=== PATIENT | female | born 1945 | race Caucasian/White ===

== ENCOUNTER 2019-03-16 12:32 | Emergency (ER) | payer OTHER ==
--- NOTE | 2019-03-16 13:08 | RAD REPORT ---
EXAM DESCRIPTION: CT - Head Brain Wo Cont - 03/16/2019 12:59 pm CLINICAL HISTORY: found on ground, confused Headache, altered consciousness COMPARISON: CT HEAD SPINE CAP W CONTRAST dated 10/05/2015 TECHNIQUE: All CT scans are performed using dose optimization technique as appropriate and may inclu de automated exposure control or mA/KV adjustment according to patient size. FINDINGS: Vague areas of diminished density are seen in the right posterior parietal lobe. These may represent areas of subacute ischemia.No intracranial hemorrhage appreciated.No midline shift evident . The paranasal sinuses and mastoids are clear. The calvarium is intact. Vertebral arteries are calcifi ed. IMPRESSION: Diminished density in the right posterior parietal lobe may represent subacute CVA. Con automatic fabric cutter followup MR brain assessment for further workup.
[2019-03-16] MEDS ORDERED: LORazepam 2 MG/ML VIAL ONE (13:46)
[2019-03-16 13:50] LABS: Absolute Lymphocytes (CBC) 0.8 K/uL (0.7-4.9); Basophils % 0.3 % (0-1.3); Eosinophils % 0.2 % (0-4.4); Hematocrit 43.2 % (36.0-45.0); Lymphocytes % 9.6 % (15.3-44.8); MPV 8.5 fL (7.6-11.3); Monocytes % 9.5 % (3.3-12.3); RBC Red Blood Cell Count 5.35 M/uL (3.86-4.86)
[2019-03-16 14:02] LABS: Potassium 4.7 mmol/L (3.5-5.1)
--- NOTE | 2019-03-16 17:12 | RAD REPORT ---
EXAM DESCRIPTION: MRI - MRA Head Wo Cont - 03/16/2019 4:30 pm CLINICAL HISTORY: Stroke-like symptoms, loss of consciousness COMPARISON: None. TECHNIQUE: Axial and coronal 3D [id number] image acquisition was performed. 3D rotational images were generated with source and reconstruction images reviewed. Horizontal and vertical axis rotation al views generated using MIP protocol. FINDINGS: No aneurysm or vascular malformation. No significant atherosclerotic changes are seen in t he central vasculature. Basilar artery is tortuous but without stenosis. The distal M1 and proximal M 2 branches of each middle cerebral artery show evidence for atherosclerotic change. However, the exam has motion degradation which would accentuate these findings. IMPRESSION: Bilateral middle cerebral artery atherosclerotic changes are present accentuated in [place] due to motion degradation. No significant disease in the distal internal carotid arteries, basilar artery or proximal portions o f the anterior, middle and posterior cerebral arteries.
--- NOTE | 2019-03-16 17:18 | RAD REPORT ---
EXAM DESCRIPTION: MRI - Brain W/Wo Cont - 03/16/2019 4:31 pm CLINICAL HISTORY: Loss of consciousness, stroke-like symptoms COMPARISON: CT March 16 TECHNIQUE: Sagittal and axial T1-weighted images were obtained. Axial PD/heavily T2-weighted and T2- FLAIR images were obtained along with axial DWI/ADC mapping sequences. Coronal heavily T2 weighted s equence obtained. Axial and coronal post-contrast T1-weighted images were also obtained. A 15 ml Mul tihance contrast following utilized. FINDINGS: No intracranial hemorrhage, mass or acute infarction. There is no edema or shift of midli ne structures. No extra-axial fluid collections. Estrada-matter/white matter junction is preserved. Sig nal voids are seen as a normal finding in the major intracranial vessels. No significant atrophy gale ges seen. Chronic ischemic changes are minimal. No sella or supra sella abnormality. Post-contrast images show normal enhancement. No dural thickening. Mastoid air cells and paranasal sinuses are clear. IMPRESSION: No infarction or other acute intracranial finding. Minimal chronic ischemic change.
--- NOTE | 2019-03-16 17:21 | RAD REPORT ---
EXAM DESCRIPTION: MRI - MRA Neck W/Wo Cont - 03/16/2019 4:31 pm CLINICAL HISTORY: Loss of consciousness, stroke-like symptoms COMPARISON: None. TECHNIQUE: Axial and coronal 3D [id number] image acquisition was performed. 3D rotational images were generated with source and reconstruction images reviewed. Horizontal and vertical axis rotation al views generated using MIP protocol. FINDINGS: Aortic arch is bovine configuration. No great vessel origins stenosis. Bilateral common ca rotid artery origin show no suspicious findings. No common carotid stenosis. Left vertebral artery is dominant. There is pronounced tortuosity at the proximal portion of each vertebral artery. Internal carotid artery's are also tortuous but without dissection or stenosis. No basilar stenosis. IMPRESSION: No dissection, stenosis or significant finding of the cervical carotid and vertebral vas culature.
--- NOTE | 2019-03-16 17:41 | ER ---
Nurse's Notes [facility] Name: Nola Quijano Age: 73 yrs Sex: Female : 1945 Arrival Date: 03/16/2019 Time: 12:43 Bed 23 Private MD: Diagnosis: Hypoglycemia, unspecified Presentation: 03/16 12:45 Presenting complaint: EMS states: EMS was called when the patient's family called to [facility] check on her this morning and no one answered. When they got into the house they found the patient laying on the floor, disoriented. FSBS 51 on scene. Patient received 1 amp of D50, and became alert and oriented. Patient reports that she remembers taking her insulin last night before bed, but doesn't remember anything from this morning. 12:45 Transition of care: patient was not received from another setting of care. Onset of [facility] symptoms was March 16, 2019. Risk Assessment: Do you want to hurt yourself or someone else? Patient reports no desire to harm self or others. Initial Sepsis Screen: Does the patient meet any 2 criteria? No. Patient's initial sepsis screen is negative. Does the patient have a suspected source of infection? No. Patient's initial sepsis screen is negative. Care prior to arrival: None. 12:45 Method Of Arrival: [facility] aj 12:45 Acuity: HECTOR 3 aj1 Triage Assessment: 12:45 General: Appears in no apparent distress. comfortable, Behavior is calm, cooperative, aj1 appropriate for age. Pain: Denies pain. Historical: - Allergies: 13:08 PENICILLINS; aj1 - Home Meds: 13:08 Lasix 40 mg Oral tab 1 tab once daily [Active]; spironolactone 50 mg Oral tab 1 tab 2 aj1 times per day [Active]; propranolol 20 mg Oral tab 1 tab daily [Active]; Levemir FlexTouch 100 unit/mL (3 mL) subcutaneous inpn 30 units nightly [Active]; - PMHx: 13:08 Diabetes - NIDDM; Hypertension; "liver problem"; aj1 - Immunization history:: Flu vaccine is up to date. - Social history:: Smoking status: Patient/guardian denies using tobacco. - Ebola Screening: : Patient denies travel to an Ebola-affected area in the 21 days before illness onset. - Family history:: not pertinent. - Hospitalizations: : No recent hospitalization is reported. Screenin:45 Abuse screen: Denies threats or abuse. Denies injuries from another. Nutritional aj1 screening: No deficits noted. Tuberculosis screening: No symptoms or risk factors identified. 19:27 Fall Risk Fall in past 12 months (25 points). No secondary diagnosis (0 pts). No IV (0 aj1 pts). Ambulatory Aid- None/Bed Rest/Nurse Assist (0 pts). Gait- Normal/Bed Rest/Wheelchair (0 pts) Mental Status- Oriented to own ability (0 pts). Total Carbone Fall Scale indicates Low Risk Score (25-44 pts). As available Patient and Family Educated on Fall Prevention Program and strategies. Assessment: 12:45 General: Appears in no apparent distress. comfortable, Behavior is calm, cooperative, aj1 appropriate for age. Pain: Denies pain. Neuro: Level of Consciousness is awake, alert, obeys commands, Oriented to person, place, time, situation, Plate Developer are equal bilaterally Moves all extremities. Full function Speech is normal, Facial symmetry appears normal. Cardiovascular: Patient's skin is warm and dry. Respiratory: Airway is patent Respiratory effort is even, unlabored, Respiratory pattern is regular, symmetrical. GI: No signs and/or symptoms were reported involving the gastrointestinal system. : EENT: No signs and/or symptoms were reported regarding the EENT system. Derm: No signs and/or symptoms reported regarding the dermatologic system. Musculoskeletal: No signs and/or symptoms reported regarding the musculoskeletal system. Circulation, motion, and sensation intact. 13:34 Reassessment: Patient appears in no apparent distress at this time. No changes from aj1 previously documented assessment. Patient and/or family updated on plan of care and expected duration. Pain level reassessed. Patient is alert, oriented x 3, equal unlabored respirations, skin warm/dry/pink. 14:30 Reassessment: Patient and/or family updated on plan of care and expected duration. Pain aj1 level reassessed. General: Appears in no apparent distress. comfortable, Behavior is calm, cooperative, appropriate for age. Neuro: Level of Consciousness is awake, alert, obeys commands, Oriented to person, place, time, situation, Speech is normal, Facial symmetry appears normal. Cardiovascular: Patient's skin is warm and dry. Respiratory: Airway is patent Respiratory effort is even, unlabored, Respiratory pattern is regular, symmetrical. Respiratory: Airway is patent Respiratory effort is even, unlabored, Respiratory pattern is regular, symmetrical. Derm: No signs and/or symptoms reported regarding the dermatologic system. Skin is pink, warm \\T\\ dry. normal. Musculoskeletal: No signs and/or symptoms reported regarding the musculoskeletal system. Circulation, motion, and sensation intact. 15:04 Reassessment: patient sent to MRI via stretcher. mg2 15:50 Reassessment: Patient returned to room from MRI. aj1 16:15 Reassessment: Patient appears in no apparent distress at this time. No changes from aj1 previously documented assessment. Patient and/or family updated on plan of care and expected duration. Pain level reassessed. Patient is alert, oriented x 3, equal unlabored respirations, skin warm/dry/pink. 17:15 Reassessment: Patient appears in no apparent distress at this time. No changes from aj1 previously documented assessment. Patient and/or family updated on plan of care and expected duration. Pain level reassessed. Patient is alert, oriented x 3, equal unlabored respirations, skin warm/dry/pink. 17:59 Reassessment: PO challenge initiated. aj1 18:03 Reassessment: Patient appears in no apparent distress at this time. No changes from aj1 previously documented assessment. Patient and/or family updated on plan of care and expected duration. Pain level reassessed. Patient is alert, oriented x 3, equal unlabored respirations, skin warm/dry/pink. 19:05 Reassessment: Patient appears in no apparent distress at this time. No changes from aj1 previously documented assessment. Patient and/or family updated on plan of care and expected duration. Pain level reassessed. Patient is alert, oriented x 3, equal unlabored respirations, skin warm/dry/pink. Vital Signs: 12:45 BP 148 / 87; Pulse 62; Resp 18; Temp 96.2(TE); Pulse Ox 100% on R/A; Weight 65.32 kg aj1 (R); Height 5 ft. 6 in. (167.64 cm) (R); Pain 0/10; 13:34 BP 144 / 88; Pulse 67; Resp 18; Pulse Ox 97% on R/A; aj1 15:03 BP 132 / 84; Pulse 74; Resp 18; Pulse Ox 98% on R/A; mg2 16:15 BP 129 / 89; Pulse 69; Resp 18; Pulse Ox 99% on R/A; aj1 17:15 BP 114 / 80; Pulse 91; Resp 18; Pulse Ox 97% on R/A; aj1 18:01 BP 123 / 90; Pulse 95; Resp 18; Temp 96.8(TE); Pulse Ox 97% on R/A; aj1 19:08 BP 108 / 79; Pulse 97; Resp 18; Pulse Ox 99% on R/A; aj1 12:45 Body Mass Index 23.24 (65.32 kg, 167.64 cm) aj1 ED Course: 12:43 Patient arrived in ED. rn 12:43 Kvng Angelo MD is Attending Physician. rn 12:45 Arm band placed on. aj1 12:45 Patient has correct armband on for positive identification. Bed in low position. Call aj1 light in reach. Side rails up X 1. blueprint processor on. Pulse ox on. NIBP on. 12:45 No provider procedures requiring assistance completed. Maintain EMS IV. Dressing aj1 intact. Good blood return noted. Site clean \\T\\ dry. Gauge \\T\\ site: 20g right hand. 12:59 CT Head Brain wo Cont In Process Unspecified. EDMS 13:04 Marilin Kaufman, RN is Primary Nurse. aj1 13:06 Triage completed. aj1 13:24 Radiology exam delayed due to lab results not completed at this time. ka 16:31 MRA Head Wo Cont In Process Unspecified. EDMS 16:31 Brain W/Wo Cont In Process Unspecified. EDMS 16:32 MRA Neck W/Wo Cont In Process Unspecified. EDMS 19:26 IV discontinued, intact, bleeding controlled, No redness/swelling at site. Pressure aj1 dressing applied. Administered Medications: 13:51 Drug: Ativan 0.5 mg Route: IVP; Site: right wrist; aj1 14:30 Follow up: Response: No adverse reaction aj1 Point of Care Testing: Blood Glucose: 12:45 Blood Glucose: 139 mg/dL; aj1 13:33 Blood Glucose: 110 mg/dL; aj1 18:35 Blood Glucose: 131 mg/dL; aj1 Ranges: Outcome: 17:40 Discharge ordered by . rn 19:26 Discharged to home via wheelchair. aj1 19:26 Condition: good 19:26 Discharge instructions given to patient, Instructed on discharge instructions, follow up and referral plans. Patient was instructed to not administer her insulin tonight follow up with Dr. Jc tomorrow to adjust insulin dosage Demonstrated understanding of instructions, follow-up care. 19:28 Patient left the ED. aj1 Signatures: Dispatcher [employer] EDMarilin Isaac RN RN aj1 Kvng Angelo MD MD rn Aguilera, Katelyn ka Gardose, Michele, RN RN mg2
--- NOTE | 2019-03-16 17:41 | EDPHYS ---
Physician Documentation [facility] Name: Nola Quijano Age: 73 yrs Sex: Female : 1945 Arrival Date: 03/16/2019 Time: 12:43 Bed 23 Private MD: ED Physician Kvng Angelo HPI: 03/16 13:08 This 73 yrs old Female presents to ER via EMS with complaints of low blood rn sugar. 13:08 The patient or guardian reports hypoglycemia. Onset: The symptoms/episode rn began/occurred at an unknown time. Current symptoms: In the emergency department the patient's symptoms have resolved. The patient has experienced similar episodes in the past. Per EMS report, family unable to get a hold of patient, so called police and EMS for welfare check, found on ground mumbling, glucose low and given some glucose in IV with mild change, given other half of amp of D50, and returned to baseline. Patient reports last thing she remembers is giving herself insulin at night. Does not recall fall or trauma or how she ended up on ground. States that has been having low blood glucose overnight almost nightly, wakes up sweating and takes oral glucose, no recent change in dosing, doesn't know why didn't wake up last night or early this morning. Has appt with her pcp tomorrow regarding this insulin and glucose issues.. Historical: - Allergies: 13:08 PENICILLINS; aj1 - Home Meds: 13:08 Lasix 40 mg Oral tab 1 tab once daily [Active]; spironolactone 50 mg Oral tab 1 tab 2 aj1 times per day [Active]; propranolol 20 mg Oral tab 1 tab daily [Active]; Levemir FlexTouch 100 unit/mL (3 mL) subcutaneous inpn 30 units nightly [Active]; - PMHx: 13:08 Diabetes - NIDDM; Hypertension; "liver problem"; aj1 - Immunization history:: Flu vaccine is up to date. - Social history:: Smoking status: Patient/guardian denies using tobacco. - Ebola Screening: : Patient denies travel to an Ebola-affected area in the 21 days before illness onset. - Family history:: not pertinent. - Hospitalizations: : No recent hospitalization is reported. ROS: 13:08 Constitutional: Negative for fever, chills, and weight loss, Eyes: Negative for injury, rn pain, redness, and discharge, Neck: Negative for injury, pain, and swelling, Cardiovascular: Negative for chest pain, palpitations, and edema, Respiratory: Negative for shortness of breath, cough, wheezing, and pleuritic chest pain, Abdomen/GI: Negative for abdominal pain, nausea, vomiting, diarrhea, and constipation, MS/Extremity: Negative for injury and deformity, Skin: Negative for injury, rash, and discoloration, Neuro: Negative for headache, weakness, numbness, tingling, and seizure, Endocrine: + low blood glucose episodes Exam: 13:08 Constitutional: This is a well developed, well nourished patient who is awake, alert, rn and in no acute distress. Head/Face: Normocephalic, atraumatic. ENT: MMM Neck: No midline spinal tenderness Cardiovascular: Regular rate and rhythm. No pulse deficits. Respiratory: Lungs have equal breath sounds bilaterally, clear to auscultation. No increased work of breathing, no retractions or nasal flaring. Abdomen/GI: soft, non-tender Back: No spinal tenderness. No costovertebral tenderness. Full range of motion. Skin: Warm, dry, and no evidence of cellulitis. MS/ Extremity: Pulses equal, no cyanosis. Neurovascular intact. Full, normal range of motion. Equal circumference. Neuro: Awake and alert, GCS 15, oriented to person, place, time, and situation. Cranial nerves II-XII grossly intact. Motor strength 5/5 in all extremities. Sensory grossly intact. Cerebellar exam normal. Vital Signs: 12:45 BP 148 / 87; Pulse 62; Resp 18; Temp 96.2(TE); Pulse Ox 100% on R/A; Weight 65.32 kg aj1 (R); Height 5 ft. 6 in. (167.64 cm) (R); Pain 0/10; 13:34 BP 144 / 88; Pulse 67; Resp 18; Pulse Ox 97% on R/A; aj1 15:03 BP 132 / 84; Pulse 74; Resp 18; Pulse Ox 98% on R/A; mg2 16:15 BP 129 / 89; Pulse 69; Resp 18; Pulse Ox 99% on R/A; aj1 17:15 BP 114 / 80; Pulse 91; Resp 18; Pulse Ox 97% on R/A; aj1 18:01 BP 123 / 90; Pulse 95; Resp 18; Temp 96.8(TE); Pulse Ox 97% on R/A; [facility] 19:08 BP 108 / 79; Pulse 97; Resp 18; Pulse Ox 99% on R/A; [facility] 12:45 Body Mass Index 23.24 (65.32 kg, 167.64 cm) [facility] MDM: 12:43 Patient medically screened. rn 17:38 Differential diagnosis: hypoglycemic episode. Data reviewed: vital signs, nurses notes, rn prior authorization test result(s), EKG, radiologic studies, CT scan, MRI, and as a result, I will discharge patient. Counseling: I had a detailed discussion with the patient and/or guardian regarding: the historical points, exam findings, and any diagnostic results supporting the discharge/admit diagnosis, lab results, radiology results, the need for outpatient follow up, to return to the emergency department if symptoms worsen or persist or if there are any questions or concerns that arise at home. Response to treatment: the patient's condition has returned to base line. 17:39 ED course: Pt back to baseline, negative MRI for acute infarction, glucose stable, has rn appt with pcp tomorrow at 2PM, advised to skip insulin tonight, eat her meals, and anticipate decrease in daily insulin dose given nightly hypoglycemia. Daughter to stay with patient and take her to appt tomorrow. All understand to skip insulin dose tonight. . 17:40 ED course: Pt also states has stopped checking her daily glucose levels, is giving her rn insulin regardless of glucose. Told her needs to check in case starting low or normal. . 03/16 12:44 Order name: CBC with Diff; Complete Time: 14:14 rn 03/16 12:44 Order name: Basic Metabolic Panel; Complete Time: 14:14 rn 03/16 12:44 Order name: CT Head Brain wo Cont; Complete Time: 13:17 rn 03/16 15:23 Order name: MRA Head Wo Cont; Complete Time: 17:16 EDMS 03/16 15:23 Order name: Brain W/Wo Cont; Complete Time: 17:23 EDMS 03/16 12:44 Order name: Glucose Level; Complete Time: 13:29 rn 03/16 12:44 Order name: IV Start; Complete Time: 13:29 rn 03/16 12:44 Order name: EKG; Complete Time: 12:46 rn 03/16 12:44 Order name: EKG - Nurse/Tech; Complete Time: 13:28 rn 03/16 15:23 Order name: MRA Neck W/Wo Cont; Complete Time: 17:23 EDLA 03/16 17:38 Order name: PO challenge; Complete Time: 17:59 rn Administered Medications: 13:51 Drug: Ativan 0.5 mg Route: IVP; Site: right wrist; aj 14:30 Follow up: Response: No adverse reaction aj1 Point of Care Testing: Blood Glucose: 12:45 Blood Glucose: 139 mg/dL; aj1 13:33 Blood Glucose: 110 mg/dL; aj1 18:35 Blood Glucose: 131 mg/dL; aj1 Ranges: Critical Glucose Levels:Adult <50 mg/dl or >400 mg/dl <40 mg/dl or >180 mg/dl Disposition: 03/16/19 17:40 Discharged to Home. Impression: Hypoglycemia, unspecified. - Condition is Stable. - Discharge Instructions: Hypoglycemia, Blood Glucose Monitoring, Adult. - Medication Reconciliation Form, Thank You Letter, Antibiotic Education, Prescription Opioid Use form. - Follow up: Private Physician; When: Tomorrow; Reason: Recheck today's complaints, Continuance of care, Re-evaluation by your physician. - Problem is an ongoing problem. - Symptoms have improved. Signatures: Dispatcher [employer] Marilin Fulton, RN RN aj1 Kvng Angelo MD MD rn family: (The following items were deleted from the chart) 15:23 13:19 MR STROKE PROTOCOL+MRI.RAD.BRZ ordered. [facility] 19:28 17:40 03/16/2019 17:40 Discharged to Home. Impression: Hypoglycemia, unspecified. aj1 Condition is Stable. Forms are Medication Reconciliation Form, Thank You Letter, Antibiotic Education, Prescription Opioid Use. Follow up: Private Physician; When: Tomorrow; Reason: Recheck today's complaints, Continuance of care, Re-evaluation by your physician. Problem is an ongoing problem. Symptoms have improved. rn
[2019-03-16 20:19] VITALS: TEMP 96.8
[2019-03-16 20:21] VITALS: BP 108/79; O2SAT 99
--- NOTE | 2019-03-17 14:52 | EKG ---
Test Date: 2019-03-16 Test Time: 13:05:35 Camouflage Assembler: JULES MEASUREMENT RESULTS: Intervals: Rate: 63 OH: 160 QRSD: 84 QT: 470 QTc: 480 [place]: P: 18 OH: 160 QRS: -21 T: 0 INTERPRETIVE STATEMENTS: Normal sinus rhythm Possible Anterolateral infarct, age undetermined Abnormal ECG Compared to ECG 10/05/2015 20:19:13 Myocardial infarct finding now present ST (T wave) deviation no longer present Electronically Signed On 03-17-19 14:47:40 CDT by Guillaume Fallon
== END 2019-03-16 19:28 | disposition home or self-care (01) ==
LOC: ER 12:32
DX: E11.649 Type 2 diabetes mellitus with hypoglycemia without coma (principal); I10 Essential (primary) hypertension; K76.9 Liver disease, unspecified; Z79.4 Long term (current) use of insulin; Z88.0 Allergy status to penicillin
CPT/HCPCS: 93005; 85025; 80048; 36415; 82962 ×4; 70450; 70553; 70544; 70549; 96374; 99284; A9577

== ENCOUNTER 2019-05-14 06:58 | Day surgery (SDC) | payer OTHER ==
[2019-05-14 08:18] LABS: MPV 8.2 fL (7.6-11.3)
[2019-05-14 09:03] VITALS: BMI 22.6
[2019-05-14 09:07] LABS: Platelet Estimate ADEQ
--- NOTE | 2019-05-14 10:24 | RAD REPORT ---
EXAM DESCRIPTION: US - Paracentesis Proc Guidance - 05/14/2019 9:13 am CLINICAL HISTORY: Ascites, cirrhosis, paracentesis COMPARISON: Abdomen ultrasound May 13 TECHNIQUE: The patient presents for ultrasound-guided paracentesis. The procedure, risks and altern atives were discussed with the patient in detail. Oral and written consent were obtained. Time out p rocedure was performed. The patient had no contraindicated allergy or medication history. PT, INR an d platelet values within acceptable limits. Preliminary sonographic evaluation identified right lower quadrant access site. The skin and deeper tissues were anesthetized with 1 percent lidocaine. Under direct sonographic visualization, a parace ntesis catheter was advanced into the peritoneal cavity. Intraperitoneal placement was confirmed. Pedro roximately 20 mL of ascites retained for requested laboratory studies. Large volume drainage was init iated. Approximately 9 liters of ascites removed. At the conclusion of the procedure, catheter was withdrawn and a bandage placed at the puncture site. Postprocedure care and precaution instructions were discussed with the patient. Patient was transfe rred back to the same day surgical area for pending albumin infusion as detailed in referring physici an order set. IMPRESSION: Ultrasound-guided paracentesis as detailed.
[2019-05-14] MEDS ORDERED: ALBUMIN HUMAN 25% 300 ML IV ONE (10:29)
[2019-05-14 11:04] VITALS: O2SAT 100
[2019-05-14 11:35] VITALS: BP 99/56; TEMP 98.5
[2019-05-14 12:43] LABS: Body Fluid WBC 333 /mm^3
[2019-05-14 13:28] LABS: Appearance SLT. TURBID (CLEAR); Body Fluid Source PERITONEAL; Color of fluid Yellow (COLORLESS)
== END 2019-05-14 11:45 | disposition home or self-care (01) ==
LOC: DS 06:58
PROVIDERS: ATTEND Internal Medicine Gastroenterology
DX: R18.8 Other ascites (principal); K74.69 Other cirrhosis of liver; R94.5 Abnormal results of liver function studies
CPT/HCPCS: 87070; 36415; 89050; 85049; 96365; 49083; P9047

== ENCOUNTER 2019-06-04 07:18 | Day surgery (SDC) | payer OTHER ==
[2019-06-04 08:33] LABS: Absolute Lymphocytes (CBC) 0.8 K/uL (0.7-4.9); Basophils % 0.9 % (0-1.3); Hematocrit 34.4 % (36.0-45.0); Lymphocytes % 22.1 % (15.3-44.8); MPV 8.3 fL (7.6-11.3); RBC Red Blood Cell Count 4.24 M/uL (3.86-4.86)
[2019-06-04 08:44] VITALS: O2SAT 99; BMI 21.7
[2019-06-04 08:53] LABS: Albumin 2.7 g/dL (3.4-5.0); Phosphorus 2.8 mg/dL (2.5-4.9); Potassium 4.1 mmol/L (3.5-5.1); Protein, Total 6.5 g/dL (6.4-8.2)
[2019-06-04 08:54] LABS: Magnesium 1.4 mg/dL (1.8-2.4)
--- NOTE | 2019-06-04 09:35 | RAD REPORT ---
EXAM DESCRIPTION: US - Paracentesis Proc Guidance - 06/04/2019 9:12 am CLINICAL HISTORY: ASCITES Ascites COMPARISON: Paracentesis Proc Guidance dated 05/14/2019 FINDINGS: Informed consent was obtained and time-out was performed. Patient's abdomen was prepped and draped in the usual sterile fashion. 1% lidocaine was used for loca l anesthetic purposes. A small skin incision was made along the right aspect of the abdomen. A paracentesis catheter was christina ded into the peroneal cavity under sonographic guidance. A small amount of fluid was sent for requested lab studies. A large volume paracentesis was performed . The patient tolerated the procedure well. Patient was administered IV albumin per protocol following the procedure. IMPRESSION: Successful ultrasound-guided paracentesis.
[2019-06-04] MEDS ORDERED: ALBUMIN HUMAN 25% 300 ML IV ONE (10:03)
[2019-06-04 10:41] LABS: Body Fluid WBC 422 /mm^3
[2019-06-04 10:46] LABS: Appearance CLEAR (CLEAR); Body Fluid Source PERITONEAL; Color of fluid Yellow (COLORLESS)
[2019-06-04 11:26] VITALS: BP 92/52; TEMP 98
== END 2019-06-04 11:26 | disposition home or self-care (01) ==
LOC: DS 07:18
PROVIDERS: ATTEND Internal Medicine Gastroenterology
DX: R18.8 Other ascites (principal); K74.69 Other cirrhosis of liver
CPT/HCPCS: 87070; 85025; 36415; 89050; 83735; 84100; 80053; 96365; 49083; P9047

== ENCOUNTER 2020-01-26 18:54 | Inpatient (IN) | payer OTHER ==
--- OUTSIDE RECORDS SUMMARY | 2020-01-26 19:44 | XMS REPORT ---
:1945 Author Organization [facility] t Address [address] [place] [address] Dr. Mills [address] [place] [id number] Care Team Providers Name Role Phone Unavailable Unavailable Unavailable Problems This patient has no known problems. Allergies, Adverse Reactions, Alerts This patient has no known allergies or adverse reactions. Medications This patient has no known medications. Encounters Start End Encounter Admission Attending Care Care Encounter Date/Time Date/Time Type Type Clinicians Facility Department ID 2019-12-02 2019-12-02 Outpatient [facility] [id number] 11:50:00 11:50:00 2019-11-09 2019-11-09 [facility] [id number] 12:34:00 12:34:00 2019-10-29 2019-10-29 Outpatient [facility] [id number] 07:45:00 07:45:00
[2020-01-26] MEDS ORDERED: NA CHLORIDE 0.9% 1,000 ML ONE (19:49)
[2020-01-26 19:55] LABS: Absolute Lymphocytes (CBC) 0.9 K/uL (0.7-4.9); Basophils % 0.3 % (0-1.3); Hematocrit 33.8 % (36.0-45.0); Lymphocytes % 14.9 % (15.3-44.8); MPV 8.3 fL (7.6-11.3); RBC Red Blood Cell Count 4.57 M/uL (3.86-4.86)
[2020-01-26] MEDS ORDERED: FENTANYL CITR 100 MCG/2 ML ONE (19:57)
[2020-01-26 19:59] LABS: Protime INR 1.23
--- NOTE | 2020-01-26 19:59 | RAD REPORT ---
EXAM DESCRIPTION: Brigid Single View01/26/2020 7:51 pm CLINICAL HISTORY: Sepsis COMPARISON: 2016 FINDINGS: The patient is in a poor degree of inspiration. The lungs appear clear of acute infiltrate. The heart is normal size. The aorta is tortuous/ectatic
[2020-01-26 20:38] LABS: ALT/SGPT 29 U/L (12-78); AST/SGOT 31 U/L (15-37); Albumin 2.3 g/dL (3.4-5.0); Alkaline Phosphatase 243 U/L (45-117); Amylase Level 54 U/L (25-115); BUN Blood Urea Nitrogen 30 mg/dL (7-18); Bicarbonate 23 mmol/L (21-32); Bilirubin Direct 0.3 mg/dL (0-0.2); Bilirubin Total 0.9 mg/dL (0.2-1.0); CKMB Creatine Kinase MB < 1.0 ng/mL (0.3-3.6); Creatine Phosphokinase 30 U/L (26-192); Glucose Level 117 mg/dL (74-106); Lipase 99 U/L (73-393); Potassium 4.3 mmol/L (3.5-5.1); Protein, Total 7.1 g/dL (6.4-8.2); Sodium Level 128 mmol/L (136-145); Troponin (Emerg Dept Use Only) < 0.02 ng/mL (0.0-0.045)
--- NOTE | 2020-01-26 21:25 | ER ---
Nurse's Notes [facility] Name: Nola Quijano Age: 74 yrs Sex: Female : 1945 Arrival Date: 01/26/2020 Time: 18:59 Bed 7 Private MD: Diagnosis: Other cirrhosis of liver;Encephalopathy, unspecified Presentation: 01/25 19:00 Chief complaint: EMS states: Abdomina swelling/pain with increasing confusion for 2 ll1 days. Last tap 3 weeks ago. Family instructed EMS she is to be tapped upon arrival. In rehab the past 3 weeks after an ICU admission. EMS: fingerstick 127, BP 102/66. Coronavirus screen: Proceed with normal triage. Patient denies a cough. Patient denies shortness of breath or difficulty breathing. Patient denies measured and/or subjective temperature greater than 100.4F prior to today's visit. Patient denies travel on a cruise ship or to a country the [facility] currently lists as an affected area. Patient denies contact with known and/or suspected case of COVID-19. Ebola Screen: Patient denies travel to an Ebola-affected area in the 21 days before illness onset. Initial Sepsis Screen: Does the patient meet any 2 criteria? Mean Arterial Pressure (MAP) < 65. Altered Mental Status. Yes Does the patient have a suspected source of infection? No. Patient's initial sepsis screen is negative. Risk Assessment: Do you want to hurt yourself or someone else? Patient reports no desire to harm self or others. Onset of symptoms was January 25, 2020. 19:00 Method Of Arrival: EMS ll1 19:00 Acuity: HECTOR 2 ll1 Historical: - Allergies: 19:04 PENICILLINS; ll1 - PMHx: 19:04 "liver problem"; Diabetes - NIDDM; Hypertension; ll1 - Immunization history:: Adult Immunizations unknown. - Social history:: Patient/guardian denies using alcohol, street drugs, tobacco products, Smoking status: unknown. Screenin:12 Abuse screen: Denies threats or abuse. Nutritional screening: No deficits noted. jd3 Tuberculosis screening: No symptoms or risk factors identified. Fall Risk Ambulatory Aid- Crutches/Cane/Walker (15 pts). Gait- Weak (10 pts.). Mental Status- Oriented to own ability (0 pts). Total Carbone Fall Scale indicates Low Risk Score (25-44 pts). Fall prevention measures have been instituted. Side Rails Up X 2 Placed close to Nursing Station Frequent Obs/Assesments occuring Family Present and informed to notify staff if they need to leave bedside. Assessment: 19:10 General: Appears uncomfortable, Behavior is calm, cooperative, appropriate for age. jd3 Pain: Complains of pain in abdomen diffusely Quality of pain is described as crampy, pressure, tender. Neuro: Level of Consciousness is awake, alert, obeys commands, Oriented to person, place, time, situation. Cardiovascular: Denies chest pain, Heart tones present Capillary refill < 3 seconds Patient's skin is warm and dry. Respiratory: Airway is patent Respiratory effort is even, unlabored, Respiratory pattern is regular, symmetrical, Denies cough, shortness of breath. GI: Abdomen is round distended, Bowel sounds present X 4 quads. Abd is soft X 4 quads Abdomen is tender to palpation X 4 quads. Guarding noted X 4 quads. Reports lower abdominal pain, upper abdominal pain. : No signs and/or symptoms were reported regarding the genitourinary system. EENT: No signs and/or symptoms were reported regarding the EENT system. Derm: Skin is intact, Skin is dry, Skin is normal, Skin temperature is warm. Musculoskeletal: Circulation, motion, and sensation intact. Range of motion: intact in all extremities. 20:22 Reassessment: No changes from previously documented assessment. Patient and/or family jd3 updated on plan of care and expected duration. Pain level reassessed. Patient is alert, oriented x 3, equal unlabored respirations, skin warm/dry/pink. awaiting results. 21:16 Reassessment: Patient and/or family updated on plan of care and expected duration. Pain jd3 level reassessed. Patient is alert, oriented x 3, equal unlabored respirations, skin warm/dry/pink. pt resting in bed with even and unlabored respirations, awaiting results and disposition. 22:08 Reassessment: No changes from previously documented assessment. Patient and/or family jd3 updated on plan of care and expected duration. Pain level reassessed. Patient is alert, oriented x 3, equal unlabored respirations, skin warm/dry/pink. awaiting room assignment. provider notified of continued low blood pressure, no new orders at this time. Cardiovascular: Capillary refill < 3 seconds Patient's skin is warm and dry. Respiratory: Airway is patent Respiratory effort is even, unlabored, Respiratory pattern is regular, symmetrical. GI: Abdomen is round distended. 22:55 Reassessment: Patient and/or family updated on plan of care and expected duration. Pain jd3 level reassessed. Patient is alert, oriented x 3, equal unlabored respirations, skin warm/dry/pink. [facility] Vital Signs: 19:00 BP 79 / 67; Pulse 84; Resp 20; Temp 98.2; Pulse Ox 97% on R/A; Weight 47.17 kg (R); ll1 Pain 6/10; 19:07 BP 90 / 65; Pulse 83; Resp 12 S; Pulse Ox 98% on R/A; jd3 20:23 BP 89 / 58; Pulse 70; Resp 13 S; Pulse Ox 96% on R/A; jd3 21:16 BP 92 / 61; Pulse 66; Resp 12 S; Pulse Ox 97% on R/A; jd3 22:09 BP 85 / 59; Pulse 66; Resp 14 S; Pulse Ox 97% on R/A; jd3 22:56 BP 86 / 60; Pulse 70; Resp 12 S; Pulse Ox 98% on R/A; jd3 ED Course: 18:59 Patient arrived in ED. ll1 19:03 Triage completed. ll1 19:04 Arm band placed on Patient placed in an exam room, on a stretcher. ll1 19:07 Jose G Murillo, RN is Primary Nurse. jd3 19:13 Patient has correct armband on for positive identification. Bed in low position. Call j light in reach. Side rails up X2. collections agent on. Pulse ox on. NIBP on. 19:15 EKG completed in triage. Results shown to . jd3 19:20 Inserted saline lock: 20 gauge in right wrist, using aseptic technique. Blood collected.jd3 19:21 Jasper Cueva MD is Attending Physician. tw4 19:51 Chest Single View XRAY In Process Unspecified. EDMS 19:58 Pillow given. Verbal reassurance given. Turned to left side. jd3 21:24 Sammy Graves MD is Hospitalizing Provider. tw4 22:57 No provider procedures requiring assistance completed. Patient admitted, IV remains in jd3 place. 01/26 00:33 Straight cath inserted, using sterile technique, 14 Fr. Specimen obtained. 1200 ml of jd3 urine collected, pt reporting retention with abdominal swelling, Hospitalist notified Returned clear yellow urine. Patient tolerated well. Administered Medications: 01/25 19:46 Drug: NS 0.9% (30 ml/kg) 30 ml/kg Route: IV; Rate: bolus; Site: right wrist; jd3 20:45 Follow up: Response: No adverse reaction; IV Status: Completed infusion; IV Intake: jd3 1000ml ; medicated with 1000 ml per verbal order of MD 19:56 Drug: fentaNYL (PF) 25 mcg Route: IVP; Site: right wrist; jd3 20:46 Follow up: Response: No adverse reaction; RASS: Alert and Calm (0) jd3 Intake: 20:45 IV: 1000ml; Total: 1000ml. jd3 Outcome: 21:25 Decision to Hospitalize by Provider. tw4 22:59 Admitted to ER Hold. Please see [facility] for further documentation. jd3 22:59 Condition: stable 22:59 Instructed on the need for admit, Demonstrated understanding of instructions. 01/26 02:12 Patient left the ED. ea Signatures: Dispatcher [employer] EDMS Megha Anderson RN RN ea Davies, Jonathon RN Jasper Sibley MD MD tw4 Geeta Agudelo RN RN ll1 Corrections: (The following items were deleted from the chart) 01/25 19:04 19:00 Chief complaint: EMS states: Abdomina swelling/pain with increasing confusion for ll1 2 days. Last tap 3 weeks ago. Family instructed EMS she is to be tapped upon arrival. In rehab the past 3 weeks after an ICU admission. ll1 22:57 22:08 Reassessment: No changes from previously documented assessment. Patient and/or jd3 family updated on plan of care and expected duration. Pain level reassessed. Patient is alert, oriented x 3, equal unlabored respirations, skin warm/dry/pink. awaiting room assignment. jd3 01/26 01:29 00:33 Straight cath inserted, using sterile technique, 14 Fr. Specimen obtained. jd3 Returned clear yellow urine. Patient tolerated well. jd3
--- NOTE | 2020-01-26 21:25 | EDPHYS ---
Physician Documentation [facility] Name: Nola Quijano Age: 74 yrs Sex: Female : 1945 Arrival Date: 01/26/2020 Time: 18:59 Bed 7 Private MD: ED Physician Jasper Cueva HPI: 01/25 21:21 This 74 yrs old Female presents to ER via EMS with complaints of Abdominal tw4 Distention. 23:00 The patient presents with abdominal distention. The patient presents with abdominal tw4 pain. Onset: The symptoms/episode began/occurred today. The symptoms do not radiate. Associated signs and symptoms: none. The symptoms are described as dull. Modifying factors: The symptoms are alleviated by nothing, the symptoms are aggravated by nothing. Severity of pain: At its worst the pain was moderate in the emergency department the pain is unchanged. The patient has experienced similar episodes in the past, chronically. Historical: - Allergies: 19:04 PENICILLINS; ll1 - PMHx: 19:04 "liver problem"; Diabetes - NIDDM; Hypertension; ll1 - Immunization history:: Adult Immunizations unknown. - Social history:: Patient/guardian denies using alcohol, street drugs, tobacco products, Smoking status: unknown. ROS: 23:00 Constitutional: Negative for fever, chills, and weight loss, Eyes: Negative for injury, tw4 pain, redness, and discharge, Cardiovascular: Negative for chest pain, palpitations, and edema, Respiratory: Negative for shortness of breath, cough, wheezing, and pleuritic chest pain, Back: Negative for injury and pain, MS/Extremity: Negative for injury and deformity, Skin: Negative for injury, rash, and discoloration, Neuro: Negative for headache, weakness, numbness, tingling, and seizure. 23:00 Abdomen/GI: Positive for abdominal pain, abdominal distension, Negative for nausea and vomiting, nausea, vomiting, and diarrhea, nausea. Exam: 23:11 Head/Face: Normocephalic, atraumatic. Eyes: Pupils equal round and reactive to light, tw4 extra-ocular motions intact. Lids and lashes normal. Conjunctiva and sclera are non-icteric and not injected. Cornea within normal limits. Periorbital areas with no swelling, redness, or edema. Chest/axilla: Normal chest wall appearance and motion. Nontender with no deformity. No lesions are appreciated. Cardiovascular: Regular rate and rhythm with a normal S1 and S2. No gallops, murmurs, or rubs. Normal PMI, no JVD. No pulse deficits. Respiratory: Lungs have equal breath sounds bilaterally, clear to auscultation and percussion. No rales, rhonchi or wheezes noted. No increased work of breathing, no retractions or nasal flaring. 23:11 Constitutional: The patient appears frail, obviously ill. 23:11 Respiratory: 23:11 Abdomen/GI: Inspection: distension, that is severe, Bowel sounds: diminished, Palpation: mild abdominal tenderness, in all quadrants, Liver: is enlarged, palpable 8 cm(s) below rib margin. Vital Signs: 19:00 BP 79 / 67; Pulse 84; Resp 20; Temp 98.2; Pulse Ox 97% on R/A; Weight 47.17 kg (R); ll1 Pain 6/10; 19:07 BP 90 / 65; Pulse 83; Resp 12 S; Pulse Ox 98% on R/A; jd3 20:23 BP 89 / 58; Pulse 70; Resp 13 S; Pulse Ox 96% on R/A; jd3 21:16 BP 92 / 61; Pulse 66; Resp 12 S; Pulse Ox 97% on R/A; jd3 22:09 BP 85 / 59; Pulse 66; Resp 14 S; Pulse Ox 97% on R/A; jd3 22:56 BP 86 / 60; Pulse 70; Resp 12 S; Pulse Ox 98% on R/A; jd3 MDM: 19:21 Patient medically screened. tw4 21:21 Data reviewed: vital signs, nurses notes. Counseling: I had a detailed discussion with tw4 the patient and/or guardian regarding: the historical points, exam findings, and any diagnostic results supporting the discharge/admit diagnosis. 23:11 Differential diagnosis: Hepatitis, Irritable bowel syndrome, Mesenteric ischemia or tw4 infarction, non-specific abd pain, pancreatitis, Peritonitis. Data interpreted: environmental monitoring specialist: rhythm is normal sinus rhythm, Pulse oximetry: Interpretation: normal. Physician consultation: Sammy Graves MD regarding admission, to the telemetry unit. patient's condition, and will see patient in ED. 01/25 19:22 Order name: Amylase, Serum; Complete Time: 21:17 tw4 05/05 21:20 Interpretation: Within normal limits: HUGH 54. 01/25 19:22 Order name: Basic Metabolic Panel; Complete Time: :01/25 21:17 Interpretation: Normal except: NA 128; CL 95; GLUC 117; BUN 30; GFR 52. 01/25 19:22 Order name: Blood Culture Adult (2) 01/25 19:22 Order name: CBC with Diff; Complete Time: 21:01/25 21:19 Interpretation: Normal except: HGB 10.8; HCT 33.8; MCV 73.9; MCH 23.6; MCHC 31.9; LYM% tw4 14.9; EMILY% 74.6; RDW 19.7. 01/25 19:22 Order name: Ckmb; Complete Time: 21:01/25 19:22 Order name: CPK; Complete Time: :01/25 19:22 Order name: Lactate; Complete Time: :01/25 19:22 Order name: LFT's; Complete Time: 21:01/25 21:19 Interpretation: Normal except: ALK 243; BILID 0.3; ALB 2.3; GLOB 4.8; A/G 0.5. 01/25 19:22 Order name: Lipase; Complete Time: 21:01/25 19:22 Order name: Procalcitonin; Complete Time: 21:17 01/25 19:22 Order name: Protime (+inr); Complete Time: :01/25 21:20 Interpretation: Normal except: PT 14.5. 01/25 19:22 Order name: Ptt, Activated; Complete Time: 21:17 01/25 19:22 Order name: Troponin (emerg Dept Use Only); Complete Time: 21:01/25 19:22 Order name: Urine Microscopic Only 01/25 19:22 Order name: Chest Single View XRAY; Complete Time: 21:17 01/25 20:45 Order name: AMMONIA jd3 01/25 22:08 Order name: CONS Pharmacy Consult [facility] 01/25 22:08 Order name: CONS Physician Consult [facility] 01/25 22:08 Order name: NPO EDMS 01/25 22:08 Order name: CBC with Automated Diff EDMS 01/25 22:08 Order name: CBC with Automated Diff EDMS 01/25 22:08 Order name: Comprehensive Metabolic Panel EDMS 01/25 22:08 Order name: Comprehensive Metabolic Panel EDMS 01/25 22:08 Order name: Protime (+INR) EDMS 01/25 22:09 Order name: Protime (+INR) EDMS 01/25 22:09 Order name: PTT, Activated Partial Thromb EDMS 01/25 22:09 Order name: PTT, Activated Partial Thromb EDMS 01/25 22:09 Order name: Paracentesis Proc Guidance EDMS 01/25 19:22 Order name: Accucheck; Complete Time: 19:24 tw4 01/25 19:22 Order name: Cardiac monitoring; Complete Time: 19:24 tw4 01/25 19:22 Order name: EKG - Nurse/Tech; Complete Time: 19:25 tw4 01/25 19:22 Order name: IV Saline Lock - Large Bore; Complete Time: 19:25 tw4 01/25 19:22 Order name: Labs collected and sent; Complete Time: 19:41 tw4 01/25 19:22 Order name: O2 Per Protocol; Complete Time: 19:25 tw4 01/25 19:22 Order name: O2 Sat Monitoring; Complete Time: 19:25 tw4 01/25 19:22 Order name: Urine Dipstick-Ancillary (obtain specimen); Complete Time: 00:33 tw4 01/25 23:53 Order name: Straight Cath; Complete Time: 00:33 jd3 EC/06 02:46 Rate is 83 beats/min. Rhythm is regular. QRS Stevenson is Normal. ID interval is normal. QRS tw4 interval is normal. QT interval is normal. No Q waves. T waves are Normal. No ST changes noted. Clinical impression: NSR w/ Non-specific ST/T Changes. Interpreted by me. Reviewed by me. Administered Medications: 01/25 19:46 Drug: NS 0.9% (30 ml/kg) 30 ml/kg Route: IV; Rate: bolus; Site: right wrist; jd3 20:45 Follow up: Response: No adverse reaction; IV Status: Completed infusion; IV Intake: jd3 1000ml ; medicated with 1000 ml per verbal order of MD 19:56 Drug: fentaNYL (PF) 25 mcg Route: IVP; Site: right wrist; jd3 20:46 Follow up: Response: No adverse reaction; RASS: Alert and Calm (0) jd3 Disposition: 01/26/20 21:25 Hospitalization ordered by Sammy Graves for Inpatient Admission. Preliminary diagnosis are Other cirrhosis of liver, Encephalopathy, unspecified. - Bed requested for Intensive Care Unit. - Status is Inpatient Admission. ea - Condition is Stable. - Problem is new. - Symptoms have improved. Signatures: Dispatcher [employer] EDMS Pily Christianson RN RN tl1 Megha Anderson RN RN ea Jose G Murillo RN RN jd3 Jasper Cueva MD MD tw4 Geeta Agudelo RN RN ll1 Corrections: (The following items were deleted from the chart) 22:43 21:25 Hospitalization Ordered by Sammy Graves MD for Inpatient Admission. Preliminary tl1 diagnosis is Other cirrhosis of liver; Encephalopathy, unspecified. Bed requested for Telemetry/MedSurg (Inpatient). Status is Inpatient Admission. Condition is Stable. Problem is new. Symptoms have improved. tw4 22:44 22:43 01/26/2020 21:25 Hospitalization Ordered by Sammy Graves MD for Inpatient tl1 Admission. Preliminary diagnosis is Other cirrhosis of liver; Encephalopathy, unspecified. Bed requested for Intensive Care Unit. Status is Inpatient Admission. Condition is Stable. Problem is new. Symptoms have improved. tl1 23:09 21:21 The patient presents with abdominal pain tw4 tw4 06 01:37 05 22:44 01/26/2020 21:25 Hospitalization Ordered by Sammy Graves MD for Inpatient tl1 Admission. Preliminary diagnosis is Other cirrhosis of liver; Encephalopathy, unspecified. Bed requested for [facility] ER HOLD. Status is Inpatient Admission. Condition is Stable. Problem is new. Symptoms have improved. tl1 01/26 02:12 01:37 01/26/2020 21:25 Hospitalization Ordered by Sammy Graves MD for Inpatient ea Admission. Preliminary diagnosis is Other cirrhosis of liver; Encephalopathy, unspecified. Bed requested for Intensive Care Unit. Status is Inpatient Admission. Condition is Stable. Problem is new. Symptoms have improved. tl1
[2020-01-26] MEDS ORDERED: ACETAMINOPHEN 500 MG TAB PO PRN (22:02)
[2020-01-26] MEDS ORDERED: MORPHINE 2 MG/ML SYR IV PRN (22:02)
[2020-01-26] MEDS ORDERED: ONDANSETRON 4 MG/2 ML VIAL IV PRN (22:02)
[2020-01-26] MEDS ORDERED: ALBUMIN HUMAN 25% 50 ML IV ONE ×2 (22:41→23:13)
[2020-01-26] MEDS: ALBUMIN HUMAN 25% 100 ML IV SCH (23:00)
[2020-01-26] MEDS ORDERED: ALBUMIN HUMAN 25% 100 ML IV ONE (23:37)
[2020-01-27] MEDS ORDERED: NA CHLORIDE 0.9% 250 ML IV PRN (00:24)
[2020-01-27] MEDS ORDERED: NA CHLORIDE 0.9% 250 ML IV ONE (00:26)
[2020-01-27 00:48] LABS: Urine Bacteria 20-50 /HPF (<20); Urine Culture Reflex Order REFLEXED; Urine RBC NONE SEEN /HPF (NONE SEEN); Urine Yeast FEW (NONE SEEN)
[2020-01-27 05:13] LABS: Absolute Lymphocytes (CBC) 0.8 K/uL (0.7-4.9); Basophils % 0.7 % (0-1.3); Hematocrit 29.5 % (36.0-45.0); Lymphocytes % 20.3 % (15.3-44.8); MPV 8.1 fL (7.6-11.3)
[2020-01-27 05:21] LABS: Protime INR 1.32
[2020-01-27] MEDS: ALBUMIN HUMAN 25% 100 ML IV SCH ×2 (05:25→11:00)
[2020-01-27 05:35] LABS: Albumin 2.6 g/dL (3.4-5.0); Potassium 3.8 mmol/L (3.5-5.1); Protein, Total 6.3 g/dL (6.4-8.2)
--- NOTE | 2020-01-27 07:29 | P.HP ---
Certification for Inpatient Patient admitted to: Inpatient With expected LOS: >2 Midnights Patient will require the following post-hospital care: None Practitioner: I am a practitioner with admitting privileges, knowledge of patient current condition, hospital course, and medical plan of care. Services: Services provided to patient in accordance with Admission requirements found in Title 42 Section 412.3 of the Code of Federal Regulations Patient History Date of Service: 01/26/20 Reason for admission: Cirrhosis; hypotension; hypoalbuminemia; hepatic encephalopathy History of Present Illness: Patient is a 74-year-old female who came to the hospital with altered mental status. Patient was found have elevated ammonia level. Patient was diagnose w ith hepatic encephalopathy. Patient also has severe ascites. Patient will need paracentesis as well. Patient's blood pressure was also low so patient was admitted to ICU. Patient will be given some albumin and will monitor patient's clinical status closely. Patient's cirrhosis appears to be very advanced and may benefit from hospice care. Allergies Penicillins Allergy (Verified 01/27/20 02:21) Anaphylaxis Home Medications: Furosemide [Lasix*] 80 mg PO DAILY 04/04/14 Propranolol [Inderal*] 20 mg PO DAILY 04/04/14 Spironolactone [Aldactone] 100 mg PO BID 04/04/14 Insulin Detemir [Levemir Flextouch] 10 unit SQ DAILY WITH BREAKFAST 05/13/19 Lactobacillus Acidophilus [Probiotic Acidophilus] 1 tab PO BID 01/27/20 Lactulose 10 gm PO Q4H 01/27/20 Midodrine HCl 10 mg PO TID 01/27/20 Multivit,Ther Iron,Ca,FA & Min [Centrum Tablet*] 1 tab PO DAILY 01/27/20 Pantoprazole [Protonix Tab*] 40 mg PO BID 01/27/20 Rifaximin [Xifaxan] 1 tab PO BID 01/27/20 Saliva Stimulant Agents Comb.3 [Biotene Moisturizing Mouth] 1 spray SP Q2H PRN 01/27/20 Tramadol HCl [Ultram] 50 mg PO BEDTIME PRN 01/27/20 - Past Medical/Surgical History Has patient received pneumonia vaccine in the past: Yes Diabetic: Yes -: DM -: HTN -: Cirrhosis (questionable) -: Anemia -: Hyperlipidemia -: Hysterectomy -: Cholecystectomy -: Tonsillectomy - Family History Father Family History: Reviewed- Non-Contributory - Social History Smoking Status: Never smoker Alcohol use: No CD- Drugs: No Caffeine use: Yes Review of Systems 10-point ROS is otherwise unremarkable Physical Examination - Vital Signs Temperature: 98 F Blood Pressure: 91/57 Pulse: 63 Respirations: 16 Pulse Ox (%): 99 - Physical Exam General: Alert, Confused HEENT: Atraumatic, PERRLA, Mucous membr. moist/pink, EOMI, Sclerae nonicteric Neck: Supple, 2+ carotid pulse no bruit, No LAD, Without JVD or thyroid abnormality Respiratory: Clear to auscultation bilaterally, Normal air movement Cardiovascular: Regular rate/rhythm, Normal S1 S2, No murmurs Gastrointestinal: Normal bowel sounds, Soft and benign, Distended, Tenderness Musculoskeletal: No clubbing, No tenderness, Swelling Integumentary: No rashes Neurological: Normal speech, Normal tone, Sensation intact, Cranial nerves 3-12 intact, Normal affect, Abnormal gait, Abnormal strength Lymphatics: No axilla or inguinal lymphadenopathy - Studies Laboratory Data (last 24 hrs) 01/26/20 19:20: PT 14.5 H, INR 1.23, APTT 32.0 01/26/20 19:20: WBC 5.9, Hgb 10.8 L, Hct 33.8 L, Plt Count 166 01/26/20 19:20: Sodium 128 L, Potassium 4.3, BUN 30 H, Creatinine 1.04, Glucose 117 H, Total Bilirubin 0.9, AST 31, ALT 29, Alkaline Phosphatase 243 H, Amylase 54, Lipase 99 Assessment & Plan - Problems (Diagnosis) (1) Hepatic encephalopathy Current Visit: Yes Status: Acute (2) Cirrhosis of liver Current Visit: Yes Status: Acute (3) Ascites of liver Current Visit: Yes Status: Acute (4) Hypotension Current Visit: Yes Status: Acute - Plan Plan: 1. Continue with lactulose and Rifaximin 2. Repeat ammonia level 3. Radiology consultation for ultrasound-guided paracentesis 4. May need case management consultation for possible hospice 5. Monitor LFTs 6. GI and DVT prophylaxis Discharge Plan: Home Plan to discharge in: Greater than 2 days - Advance Directives Does patient have a Living Will: No Does patient have a Durable POA for Healthcare: Yes - Code Status/Comfort Care Code Status Assessed: Yes Code Status: Full Code Critical Care: Yes Time Spent Managing PTS Care (In Minutes): 45
[2020-01-27] MEDS ORDERED: MIDODRINE HCL 5 MG TABLET PO SCH (09:00)
[2020-01-27] MEDS: LACTULOSE 20 GM/30 ML UCUP PO SCH ×4 (09:09→19:59)
[2020-01-27] MEDS: MIDODRINE HCL 5 MG TABLET PO SCH ×3 (09:09→19:58)
[2020-01-27 10:04] LABS: Blood Morphology Comment NOT SEEN (NOT SEEN); Platelet Estimate ADEQ; Urine White Blood Cell Casts OK
--- NOTE | 2020-01-27 10:05 | P.PN ---
Subjective Date of Service: 01/27/20 Patient continues to do well. Patient was given albumin. Patience blood pressure has been stable. Patient is being scheduled for paracentesis later today. Review of Systems 10-point ROS is otherwise unremarkable Physical Examination - Vital Signs Temperature: 98 F Blood Pressure: 91/57 Pulse: 63 Respirations: 16 Pulse Ox (%): 99 - Physical Exam General: Alert, In no apparent distress, Oriented x1, Confused Respiratory: Clear to auscultation bilaterally, Normal air movement Cardiovascular: Regular rate/rhythm, Normal S1 S2, Systolic murmur Gastrointestinal: Normal bowel sounds, Soft and benign, No tenderness, No rebound, No guarding, Distended Neurological: Abnormal gait, Abnormal strength, Abnormal tone, Abnormal affect Lymphatics: No axilla or inguinal lymphadenopathy - Studies Laboratory Data (last 24 hrs) 01/26/20 19:20: PT 14.5 H, INR 1.23, APTT 32.0 01/26/20 19:20: WBC 5.9, Hgb 10.8 L, Hct 33.8 L, Plt Count 166 01/26/20 19:20: Sodium 128 L, Potassium 4.3, BUN 30 H, Creatinine 1.04, Glucose 117 H, Total Bilirubin 0.9, AST 31, ALT 29, Alkaline Phosphatase 243 H, Amylase 54, Lipase 99 Medications List Reviewed: Yes Assessment & Plan - Problems (Diagnosis) (1) Hepatic encephalopathy Current Visit: Yes Status: Acute (2) Cirrhosis of liver Current Visit: Yes Status: Acute (3) Ascites of liver Current Visit: Yes Status: Acute (4) Hypotension Current Visit: Yes Status: Acute - Plan Plan: 1. Continue with lactulose and Rifaximin 2. Repeat ammonia level in AM 3. Radiology consultation for ultrasound-guided paracentesis; therapeutic 4. May need case management consultation for possible hospice 5. Continue to monitor LFTs 6. GI and DVT prophylaxis - Advance Directives Does patient have a Living Will: No Does patient have a Durable POA for Healthcare: Yes - Code Status/Comfort Care Code Status: Full Code
--- NOTE | 2020-01-27 10:55 | RAD REPORT ---
EXAM DESCRIPTION: US - Paracentesis Proc Guidance - 01/27/2020 10:46 am CLINICAL HISTORY: Ascites COMPARISON: Prior paracentesis May 2019 TECHNIQUE: The patient presents for ultrasound-guided paracentesis. The procedure, risks and altern atives were discussed with the patient in detail. Oral and written consent were obtained. Time out p rocedure was performed. The patient had no contraindicated allergy or medication history. PT, INR va lues within acceptable limits. Preliminary sonographic evaluation identified lateral right mid abdomen access site. The skin and de eper tissues were anesthetized with 1 percent lidocaine. Under direct sonographic visualization, a p aracentesis catheter was advanced into the peritoneal cavity. Approximately 10 mL of ascites was lasha ined for requested laboratory studies. Large volume drainage was initiated. Approximately 6.5 liters of ascites removed. At the conclusion of the procedure, catheter was withdrawn and a bandage placed at the puncture site. Postprocedure care and precaution instructions were given to the patient. IMPRESSION: Ultrasound-guided paracentesis as detailed.
[2020-01-27] MEDS: Rifaximin 550 MG Tab PO SCH ×2 (11:25→19:59)
[2020-01-27] MEDS ORDERED: ALBUMIN HUMAN 25% IV ONE (12:00)
[2020-01-27] MEDS ORDERED: MIDODRINE HCL 5 MG TABLET PO ONE (15:25)
--- NOTE | 2020-01-27 16:19 | EKG ---
Test Date: 2020-01-26 Test Time: 19:04:59 Corrections Counselor: TERI MEASUREMENT RESULTS: Intervals: Rate: 83 SD: 124 QRSD: 84 QT: 372 QTc: 437 [place]: P: -9 SD: 124 QRS: -17 T: -15 INTERPRETIVE STATEMENTS: Normal sinus rhythm Low voltage QRS Inferior infarct, age undetermined Cannot rule out Anterior infarct, age undetermined Abnormal ECG Compared to ECG 03/16/2019 13:05:35 Low QRS voltage now present Myocardial infarct finding still present Electronically Signed On 01-27-20 16:18:04 CDT by Guillaume Fallon
[2020-01-27] MEDS ORDERED: ALBUMIN HUMAN 25% 100 ML IV ONE ×2 (16:45→17:00)
[2020-01-27] MEDS: SPIRONOLACTONE 25 MG TABLET PO SCH (17:12)
[2020-01-27] MEDS ORDERED: LACTULOSE 20 GM/30 ML UCUP PO SCH (23:00)
[2020-01-27] MEDS ORDERED: FENTANYL CITR 100 MCG/2 ML IV ONE (23:18)
[2020-01-28 03:33] VITALS: BMI 23.8
[2020-01-28 05:53] LABS: Albumin 3.5 g/dL (3.4-5.0); Bilirubin Total 1.3 mg/dL (0.2-1.0); Potassium 3.8 mmol/L (3.5-5.1); Protein, Total 6.7 g/dL (6.4-8.2)
[2020-01-28 07:00] LABS: Absolute Lymphocytes (CBC) 0.5 K/uL (0.7-4.9); Basophils % 0.3 % (0-1.3); Hematocrit 30.4 % (36.0-45.0); Lymphocytes % 13.4 % (15.3-44.8); MPV 8.8 fL (7.6-11.3)
--- NOTE | 2020-01-28 07:35 | P.PN ---
Subjective Date of Service: 01/28/20 Patient has 6.5 L of fluid removed during paracentesis. Patient clinically feels much better. Blood pressure has improved. Go ahead and transfer to medical floor and continue with physical therapy. Patient does not have anyone who is with her 15/04. She does have a friend who is at the house with her sharri mcbride the day but patient states that she is not with her 15/04. Continue with physical therapy and see how she does over the next 24-48 hr. Anticipate discharge fairly soon. Patient mentation has improved. Ammonia level is improved as well. Encephalopathy is much better. Review of Systems 10-point ROS is otherwise unremarkable Physical Examination - Vital Signs Temperature: 97.5 F Blood Pressure: 108/67 Pulse: 82 Respirations: 14 Pulse Ox (%): 100 - Physical Exam General: Alert, In no apparent distress, Oriented x3 Respiratory: Clear to auscultation bilaterally, Normal air movement Cardiovascular: Regular rate/rhythm, Normal S1 S2, No murmurs Gastrointestinal: Normal bowel sounds, Soft and benign, Distended, Tenderness Musculoskeletal: No clubbing, No swelling, No tenderness - Studies Medications List Reviewed: Yes Assessment & Plan - Problems (Diagnosis) (1) Hepatic encephalopathy Current Visit: Yes Status: Acute (2) Cirrhosis of liver Current Visit: Yes Status: Acute (3) Ascites of liver Current Visit: Yes Status: Acute (4) Hypotension Current Visit: Yes Status: Acute - Plan Plan: Continue with current plan of care as mentioned below 1. Continue with lactulose and Rifaximin 2. Ammonia level is stable 3. 6.5L removed; symptoms are much better 4. PT evaluation 5. Monitor LFTs 6. GI and DVT prophylaxis Discharge Plan: Home Plan to discharge in: 48 Hours - Advance Directives Does patient have a Living Will: No Does patient have a Durable POA for Healthcare: Yes - Code Status/Comfort Care Code Status: Full Code Critical Care: No Time Spent Managing PTS Care (In Minutes): 35
[2020-01-28] MEDS: MIDODRINE HCL 5 MG TABLET PO SCH ×2 (08:42→13:18)
[2020-01-28] MEDS: LACTULOSE 20 GM/30 ML UCUP PO SCH ×2 (08:42→13:18)
[2020-01-28] MEDS: SPIRONOLACTONE 25 MG TABLET PO SCH (08:44)
[2020-01-28] MEDS: Rifaximin 550 MG Tab PO SCH (08:45)
[2020-01-28 08:56] VITALS: TEMP 98
[2020-01-28] MEDS ORDERED: SOD FERRIC GLUC COMPLX/SUCROSE 125 MG in NA CHLORIDE 0.9% 100 ML IV SCH (09:00)
[2020-01-28 09:16] VITALS: BP 110/67
[2020-01-28 11:58] VITALS: O2SAT 98
[2020-01-28] MEDS ORDERED: D50W 25 GM/50 ML SYRINGE/VIAL IV PRN (12:16)
[2020-01-28] MEDS ORDERED: GLUCAGON 1 MG/VIAL IM PRN (12:16)
[2020-01-28] MEDS: INSULIN -REGULAR HUMAN 50 UNIT/0.5 ML ML SQ SCH ×2 (13:30→16:30)
--- NOTE | 2020-01-28 15:28 | P.DS ---
Admission Date: 01/26/20 Discharge Date: 01/28/20 Primary Care Provider: [facility] Disposition: [place] HOME/HOME HEALTH CARE Discharge Condition: GOOD Reason for Admission: Cirrhosis; hypotension; hypoalbuminemia; hepatic en cephalopathy Consultations: GI-Dr. Smith Procedures: Paracentesis: 6.5 L removed Medical Problem list: Hepatic encephalopathy with underlying chronic liver cirrhosis History of gastric varices Brief History of Present Illness: 74-year-old female with history of chronic cirrhosis, ascites, gastric varices, and diabetes. Patient presented with confusion related to hepatic encephalopathy. Patient admitted for further evaluation. Hospital Course: Patient presented with hepatic encephalopathy. Patient with chronic liver cirrhosis. Patient seen by [facility]. Patient was admitted due to elevated ammonia level. Patient was given lactulose and Xifaxan. Patient responded well to therapy. At discharge lactulose was adjusted. At discharge patient will continue with lactulose 20 g 4 times a day and Xifaxan 550 mg twice daily. Patient will also continue with her diuretic therapy of Lasix 80 mg daily and Aldactone 100 mg twice daily. Patient will need a follow up with her GI specialist. Patient currently being evaluated for liver transplant. Patient also found to have ascites. Patient has had numerous paracentesis. Paracentesis was done during the course of her stay. 6.5 L removed. Patient tolerated procedure well. At discharge patient will continue with her diuretic therapy. Patient will need a follow up with GI closely. Outpatient paracentesis may need to be arranged with GI. Case discussed at length with her daughter. Patient with diabetes mellitus type 2. At discharge patient will continue with Levemir 10 mg daily. Recommend to maintain blood sugars less 140 fasting and less than 200 after meals. Further adjustment can be done by her PCP. Patient with history of GERD/gastric varices. At discharge she will continue with Protonix 40 mg 1 pill twice daily and Inderal 20 mg daily. Patient with chronic hypotension. This has remained stable. Patient will continue with midodrine 10 mg 3 times a day. Patient with chronic anemia. This has remained stable. Patient will continue with multi vitamin daily. Recommend recheck lab-CBC to further monitor. Vital Signs/Physical Exam: Temp Pulse Resp BP Pulse Ox 98.0 F 84 10 L 110/67 100 01/28/20 08:00 01/28/20 09:00 01/28/20 09:00 01/28/20 09:00 01/28/20 08:00 General: Alert, In no apparent distress, Oriented x3, Cooperative HEENT: Atraumatic Neck: Supple Respiratory: Clear to auscultation bilaterally, Normal air movement Cardiovascular: Normal pulses, Regular rate/rhythm Gastrointestinal: Normal bowel sounds, Soft and benign, Non-distended, Ascites (Ascites improved) Neurological: Normal speech, Normal strength at 5/5 x4 extr, Normal tone, Normal affect Laboratory Data at Discharge: WBC 4.0 K/uL (4.3-10.9) L 01/28/20 05:02 Hgb 9.5 g/dL (12.0-15.0) L 01/28/20 05:02 Hct 30.4 % (36.0-45.0) L 01/28/20 05:02 Plt Count 115 K/uL (152-406) L 01/28/20 05:02 PT 15.5 SECONDS (9.5-12.5) H 01/27/20 04:46 INR 1.32 01/27/20 04:46 APTT 33.2 SECONDS (24.3-36.9) 01/27/20 04:46 Sodium 131 mmol/L (136-145) L 01/28/20 05:02 Potassium 3.8 mmol/L (3.5-5.1) 01/28/20 05:02 BUN 22 mg/dL (7-18) H 01/28/20 05:02 Creatinine 0.95 mg/dL (0.55-1.3) 01/28/20 05:02 Glucose 183 mg/dL (74-106) H 01/28/20 05:02 Total Bilirubin 1.3 mg/dL (0.2-1.0) H 01/28/20 05:02 AST 36 U/L (15-37) 01/28/20 05:02 ALT 27 U/L (12-78) 01/28/20 05:02 Alkaline Phosphatase 172 U/L (45-117) H 01/28/20 05:02 Amylase 54 U/L (25-115) 01/26/20 19:20 Lipase 99 U/L (73-393) 01/26/20 19:20 Home Medications: Furosemide [Lasix*] 80 mg PO DAILY 04/04/14 Propranolol [Inderal*] 20 mg PO DAILY 04/04/14 Spironolactone [Aldactone] 100 mg PO BID 04/04/14 Insulin Detemir [Levemir Flextouch] 10 unit SQ DAILY WITH BREAKFAST 05/13/19 Lactobacillus Acidophilus [Probiotic Acidophilus] 1 tab PO BID 01/27/20 Midodrine HCl 10 mg PO TID 01/27/20 Multivit,Ther Iron,Ca,FA & Min [Centrum Tablet*] 1 tab PO DAILY 01/27/20 Pantoprazole [Protonix Tab*] 40 mg PO BID 01/27/20 Rifaximin [Xifaxan] 1 tab PO BID 01/27/20 Saliva Stimulant Agents Comb.3 [Biotene Moisturizing Mouth] 1 spray SP Q2H PRN 01/27/20 Tramadol HCl [Ultram] 50 mg PO BEDTIME PRN 01/27/20 Lactulose 30 ml PO QID #1 bottle 01/28/20 New Medications: Lactulose 30 ml PO QID #1 bottle Patient Discharge Instructions: 1. Recommend follow up with PCP in 1 week to follow up this hospitalization. 2. Patient presented with hepatic encephalopathy. Patient with chronic liver cirrhosis. Patient seen by [facility]. Patient was admitted due to elevated ammonia level. Patient was given lactulose and Xifaxan. Patient responded well to therapy. At discharge lactulose was adjusted. At discharge patient will continue with lactulose 20 g 4 times a day and Xifaxan 550 mg twice daily. Patient will also continue with her diuretic therapy of Lasix 80 mg daily and Aldactone 100 mg twice daily. Patient will need a follow up with her GI specialist. Patient currently being evaluated for liver transplant. 3. Patient also found to have ascites. Patient has had numerous paracentesis. Paracentesis was done during the course of her stay. 6.5 L removed. Patient tolerated procedure well. At discharge patient will continue with her diuretic therapy. Patient will need a follow up with GI closely. Outpatient paracentesis may need to be arranged with GI. Case discussed at length with her daughter. 4. Patient with diabetes mellitus type 2. At discharge patient will continue with Levemir 10 mg daily. Recommend to maintain blood sugars less 140 fasting and less than 200 after meals. Further adjustment can be done by her PCP. 5. Patient with history of GERD/gastric varices. At discharge she will continue with Protonix 40 mg 1 pill twice daily and Inderal 20 mg daily. 6. Patient with chronic hypotension. This has remained stable. Patient will continue with midodrine 10 mg 3 times a day. 7. Patient with chronic anemia. This has remained stable. Patient will continue with multi vitamin daily. Recommend recheck lab-CBC to further monitor. Diet: ADA Activity: Fall precautions Time spent managing pt's care (in minutes): 55
--- NOTE | 2020-01-28 17:49 | P.PN ---
Subjective Date of Service: 01/28/20 Primary Care Provider: [facility] Chief Complaint: ascites, cirrhosis; hypotension; hypoalbuminemia; hepatic encephalopathy Subjective: Improving (Being discharged today. Feels better, on low sodium diet, 2 g and Aldactone 25 mg po qd.) Review of Systems General: Weakness (Improved.) Physical Examination - Vital Signs Temperature: 98.0 F Blood Pressure: 110/67 Pulse: 84 Respirations: 10 Pulse Ox (%): 100 - Physical Exam General: Alert, In no apparent distress, Oriented x3, Cooperative HEENT: Atraumatic, Normocephalic, PERRLA, EOMI, Sclerae nonicteric Neck: Supple Respiratory: Normal air movement Cardiovascular: Normal pulses Gastrointestinal: Soft and benign, No tenderness, No rebound, No guarding Neurological: Normal speech, Normal strength at 5/5 x4 extr - Studies Medications List Reviewed: Yes Assessment And Plan - Current Problems (Diagnosis) (1) Thrombocytopenia Current Visit: Yes Status: Acute (2) Hyponatremia Current Visit: Yes Status: Acute (3) Ascites of liver Current Visit: Yes Status: Acute (4) Cirrhosis of liver Current Visit: Yes Status: Acute (5) Hepatic encephalopathy Current Visit: Yes Status: Acute (6) Hypotension Current Visit: Yes Status: Acute (7) Diabetes mellitus Current Visit: No Status: Acute - Plan REC: 1) await liver labs for idiopathic cirrhosis of liver 2) continue Aldactone and increase as able as outpatient (K 3.8 today), later adding Lasix as able 3) continue low salt, 2g Na diet 4) weigh qd and call GI or PCP if weight increases more than 5 lbs 5) anticipate repeat paracenteses will be needed 6) check U/S abdomen & AFP q 6 months with cirrhosis
[2020-02-01 03:01] LABS: HBsAG Nonreactive (Nonreactive)
[2020-02-01 05:58] LABS: HIV AG/AB 4TH GEN Non-reactive (Non-reactive)
== END 2020-01-28 17:55 | disposition home health service (06) | DRG 442 ==
LOC: ER 18:54 → ERHOLD 22:13 → 3RD-ICU 01-27 01:51 → 2ND 01-28 09:20
PROVIDERS: ADMIT Hospitalist; ATTEND Family Medicine
PROC: 0W9G3ZZ Drainage of Peritoneal Cavity, Percutaneous Approach (ICD-10-PCS; principal; 2020-01-27)
DX: K72.90 Hepatic failure, unspecified without coma (principal); R18.8 Other ascites; E87.1 Hypo-osmolality and hyponatremia; E11.9 Type 2 diabetes mellitus without complications; I10 Essential (primary) hypertension; E78.5 Hyperlipidemia, unspecified; Z90.710 Acquired absence of both cervix and uterus; Z90.49 Acquired absence of other specified parts of digestive tract; K74.60 Unspecified cirrhosis of liver; I95.9 Hypotension, unspecified; D69.6 Thrombocytopenia, unspecified; K21.9 Gastro-esophageal reflux disease without esophagitis; D64.9 Anemia, unspecified; Z88.0 Allergy status to penicillin; Z79.4 Long term (current) use of insulin; Z79.899 Other long term (current) drug therapy
CPT/HCPCS: 36415; 49083; 51702; 71045; 80048; 80053; 80074; 80076; 81015; 82103; 82105; 82140; 82150; 82390; 82550; 82553; 82728; 82947; 83540; 83605; 83690; 84145; 84466; 84484; 85025; 85610; 85730; 86021; 86038; 86225; 86255; 86376; 87040; 87070; 87077; 87086; 87088; 87186; 87389; 88108; 88305; 93005; 96365; 96375; 97112; 97116; 97161; 97530; 99285; J2916; J3010; J7030; P9047

== ENCOUNTER 2020-02-10 00:10 | Observation (INO) | payer OTHER ==
--- OUTSIDE RECORDS SUMMARY | 2020-02-10 00:15 | XMS REPORT | Clinical Summary ---
:1945 Author Organization [facility] Address [address] [place] [address] Care Team Providers Name Role Phone Keven Jc MD Primary Care Provider Allergies Active Allergy Reactions Severity Noted Date Comments Penicillins Shortness Of Breath, Swelling High 10/13/2019 Medications Medication Sig Dispensed Refills Start End Status Date Date spironolactone Take 1 tablet 0 12/31/19 A ctive (ALDACTONE) 100 MG (100 mg total) 20 tablet by mouth daily. furosemide (LASIX) Take 80 mg by 0 Discontinued 80 mg tablet mouth daily. 020 (Reo rder) Take at 0900 spironolactone Take 100 mg by 0 Discontinued (ALDACTONE) 100 MG mouth 2 (two) 020 (Reorder) tablet times a day. propranoloL Take 20 mg by 0 Disc ontinued (INDERAL) 20 MG mouth daily. 020 ( Error) tablet hydrocortisone Insert 1 60 suppository 0 12/31/19 (ANUSOL-HC) 25 mg suppository (25 20 020 suppository mg total) into the rectum 2 (two) times a day for 30 days. levoFLOXacin Take 1 tablet 10 tablet 0 01/01/20 Exp ired (LEVAQUIN) 500 MG (500 mg total) 20 020 tablet by mouth daily for 10 days. pantoprazole Take 1 tablet 30 tablet 0 01/01/20 Exp ired (PROTONIX) 40 MG (40 mg total) 20 020 EC tablet by mouth daily for 30 days. riFAXimin Take 1 tablet 60 tablet 0 12/31/19 d (XIFAXAN) 550 mg (550 mg total) 20 020 tablet by mouth 2 (two) times a day for 30 days. vancomycin Take 2.5 mL 120 mL 0 12/31/19 (FIRVANQ) 50 mg/mL (125 mg total) 20 020 recon soln oral by mouth 4 solution (four) times a day for 12 days. furosemide (LASIX) Take 0.5 0 12/31/19 D iscontinued 80 mg tablet tablets (40 mg 20 020 (R eorder) total) by mouth 2 (two) times a day. Take at 0900 furosemide (LASIX) Take 1 tablet 30 tablet 0 12/31/19 40 mg tablet (40 mg total) 20 020 by mouth 2 (two) times a day for 30 days. Active Problems Problem Noted Date Cirrhosis 12/26/2019 Encounters Date Type Specialty Care Team Description 12/26/2019 - Hospital Encounter General Internal Cb Watkins Cirr hosis of liver 12/31/2019 Medicine MD Tiffanie with ascites, Eric Arroyo unspecified hep atic MD Matias cirrhosis type Shant Reese MD (HCC) (Prim [facility] Dx) 12/26/2019 Travel 12/26/2019 Intake Access 10/21/2019 Transcribe Orders Radiology Neena Kevin Cirrhos is (HCC) (Primary Dx); MD Josemanuel Unspecified cir rhosis of liver (HCC); Portal vein thr ombosis 09/30/2019 Transcribe Orders Radiology Neena Kevin Hepatic cirrhosisJosemanuel MD unspecified hep atic cirrhosis type, unspecified whe ther ascites present (HCC) (Primary Dx) after 02/09/2019 Social History Tobacco Use Types Packs/Day Years Used Date Never Assessed Sex Assigned at Date Recorded Not on file Job Start Date Occupation Industry Not on file Not on file Not on file Travel History Travel Start Travel End No recent travel history available. Last Filed Vital Signs Vital Sign Reading Time Taken Comments Blood Pressure 95/57 12/31/2019 2:00 PM CDT Pulse 96 12/31/2019 2:00 PM CDT Temperature 36.7 C (98 F) 12/31/2019 2:00 PM CDT Respiratory Rate 20 12/31/2019 2:00 PM CDT Oxygen Saturation 98% 12/31/2019 2:00 PM CDT Inhaled Oxygen Concentration - - Weight 59.4 kg (131 lb) 12/28/2019 8:46 AM CDT Height 167.6 cm (5' 6") 12/27/2019 5:08 AM CDT Body Mass Index 21.14 12/27/2019 5:08 AM CDT Plan of Treatment Health Maintenance Due Date Last Done Comments BREAST CANCER SCREENING 1995 COLONOSCOPY SCREENING 1995 SHINGLES VACCINES (#1) 1995 65+ PNEUMOCOCCAL VACCINE (1 of 2 - PCV13) 2010 INFLUENZA VACCINE 04/23/2020 Procedures Procedure Name Priority Date/Time Associated Comments Diagnosis US ABDOMINAL Routine 12/31/2019 2:15 Results for this PARACENTESIS IMAGING PM CDT procedu re are in the results section. PROTEIN, MISC FLUID Routine 12/31/2019 12:49 Resu lts for this PM CDT procedure are i n the results section. TRIGLYCERIDES, MISC Routine 12/31/2019 12:49 Resu lts for this FLUID PM CDT procedure are i n the results section. LIPASE LEVEL, MISC FLUID Routine 12/31/2019 12:49 Results for this PM CDT procedure are i n the results section. PH, MISC FLUID Routine 12/31/2019 12:49 Results f or this PM CDT procedure are i n the results section. GLUCOSE LEVEL, MISC Routine 12/31/2019 12:49 Resu lts for this FLUID PM CDT procedure are i n the results section. LDH, MISC FLUID Routine 12/31/2019 12:49 Results for this PM CDT procedure are i n the results section. ALBUMIN, MISC FLUID Routine 12/31/2019 12:49 Resu lts for this PM CDT procedure are i n the results section. CELL COUNT AND Routine 12/31/2019 12:49 Results f or this DIFFERENTIAL, BODY FLUID PM CDT pro cedure are in the results section. FUNGUS SMEAR Routine 12/31/2019 12:49 Results for this PM CDT procedure are i n the results section. AFB STAIN Routine 12/31/2019 12:49 Results for this PM CDT procedure are i n the results section. FUNGUS CULTURE Routine 12/31/2019 12:49 Results f or this PM CDT procedure are i n the results section. AFB CULTURE Routine 12/31/2019 12:49 PM CDT GRAM STAIN Routine 12/31/2019 12:49 Results for this PM CDT procedure are i n the results section. ANAEROBIC CULTURE Routine 12/31/2019 12:49 Result s for this PM CDT procedure are i n the results section. AEROBIC CULTURE Routine 12/31/2019 12:49 Results for this PM CDT procedure are i n the results section. POC GLUCOSE Routine 12/31/2019 11:45 Results for this AM CDT procedure are i n the results section. POC GLUCOSE Routine 12/31/2019 8:02 Results for this AM CDT procedure are i n the results section. HC COMPLETE BLD COUNT Routine 12/31/2019 4:50 Re sults for this W/AUTO DIFF AM CDT procedure are i n the results section. PROTHROMBIN TIME WITH Routine 12/31/2019 4:50 Re sults for this INR AM CDT procedure are i n the results section. ESTIMATED GFR Routine 12/31/2019 4:00 Results fo r this AM CDT procedure are i n the results section. COMPREHENSIVE METABOLIC Routine 12/31/2019 4:00 Results for this PANEL AM CDT procedure are i n the results section. POC GLUCOSE Routine 12/30/2019 8:49 Results for this PM CDT procedure are i n the results section. POC GLUCOSE Routine 12/30/2019 6:26 Results for this PM CDT procedure are i n the results section. POC GLUCOSE Routine 12/30/2019 11:34 Results for this AM CDT procedure are i n the results section. POC GLUCOSE Routine 12/30/2019 8:22 Results for this AM CDT procedure are i n the results section. ESTIMATED GFR Routine 12/30/2019 5:40 Results fo r this AM CDT procedure are i n the results section. ALPHA FETOPROTEIN Routine 12/30/2019 5:40 Result s for this AM CDT procedure are i n the results section. HC COMPLETE BLD COUNT Routine 12/30/2019 5:40 Re sults for this W/AUTO DIFF AM CDT procedure are i n the results section. COMPREHENSIVE METABOLIC Routine 12/30/2019 5:40 Results for this PANEL AM CDT procedure are i n the results section. PROTHROMBIN TIME WITH Routine 12/30/2019 5:40 Re sults for this INR AM CDT procedure are i n the results section. POC GLUCOSE Routine 12/29/2019 9:51 Results for this PM CDT procedure are i n the results section. POC GLUCOSE Routine 12/29/2019 6:22 Results for this PM CDT procedure are i n the results section. POC GLUCOSE Routine 12/29/2019 2:30 Results for this PM CDT procedure are i n the results section. POC GLUCOSE Routine 12/29/2019 12:18 Results for this PM CDT procedure are i n the results section. POC GLUCOSE Routine 12/29/2019 8:38 Results for this AM CDT procedure are i n the results section. GASTROINTESTINAL PANEL Routine 12/29/2019 8:14 R esults for this AM CDT procedure are i n the results section. POC GLUCOSE Routine 12/29/2019 4:42 Results for this AM CDT procedure are i n the results section. ESTIMATED GFR Routine 12/29/2019 4:40 Results fo r this AM CDT procedure are i n the results section. HC COMPLETE BLD COUNT Routine 12/29/2019 4:40 Re sults for this W/AUTO DIFF AM CDT procedure are i n the results section. COMPREHENSIVE METABOLIC Routine 12/29/2019 4:40 Results for this PANEL AM CDT procedure are i n the results section. PROTHROMBIN TIME WITH Routine 12/29/2019 4:40 Re sults for this INR AM CDT procedure are i n the results section. POC GLUCOSE Routine 12/29/2019 1:35 Results for this AM CDT procedure are i n the results section. POC GLUCOSE Routine 12/28/2019 8:42 Results for this PM CDT procedure are i n the results section. POC GLUCOSE Routine 12/28/2019 6:27 Results for this PM CDT procedure are i n the results section. POC GLUCOSE Routine 12/28/2019 11:46 Results for this AM CDT procedure are i n the results section. POC GLUCOSE Routine 12/28/2019 7:50 Results for this AM CDT procedure are i n the results section. POC GLUCOSE Routine 12/28/2019 4:35 Results for this AM CDT procedure are i n the results section. PROTHROMBIN TIME WITH Routine 12/28/2019 4:35 Re sults for this INR AM CDT procedure are i n the results section. FIBRINOGEN Routine 12/28/2019 4:35 Results for this AM CDT procedure are i n the results section. PARTIAL THROMBOPLASTIN Routine 12/28/2019 4:35 R esults for this TIME (PTT) AM CDT procedure are i n the results section. HC COMPLETE BLD COUNT Routine 12/28/2019 4:35 Re sults for this W/AUTO DIFF AM CDT procedure are i n the results section. ESTIMATED GFR Routine 12/28/2019 4:00 Results fo r this AM CDT procedure are i n the results section. IONIZED CALCIUM Routine 12/28/2019 4:00 Results for this AM CDT procedure are i n the results section. PHOSPHORUS LEVEL Routine 12/28/2019 4:00 Results for this AM CDT procedure are i n the results section. MAGNESIUM LEVEL Routine 12/28/2019 4:00 Results for this AM CDT procedure are i n the results section. HEPATIC FUNCTION PANEL Routine 12/28/2019 4:00 R esults for this AM CDT procedure are i n the results section. BASIC METABOLIC PANEL Routine 12/28/2019 4:00 Re sults for this AM CDT procedure are i n the results section. POC GLUCOSE Routine 12/27/2019 3:51 Results for this PM CDT procedure are i n the results section. US ABDOMINAL STAT 12/27/2019 2:47 Results for this PARACENTESIS IMAGING PM CDT procedu re are in the results section. HC COMPLETE BLD COUNT Timed 12/27/2019 2:47 Re sults for this W/AUTO DIFF PM CDT procedure are i n the results section. BILIRUBIN TOTAL, MISC Routine 12/27/2019 2:30 Re sults for this FLUID PM CDT procedure are i n the results section. CREATININE LEVEL, MISC Routine 12/27/2019 2:30 R esults for this FLUID PM CDT procedure are i n the results section. CELL COUNT AND Routine 12/27/2019 2:30 Results f or this DIFFERENTIAL, BODY FLUID PM CDT pro cedure are in the results section. PROTEIN, MISC FLUID Routine 12/27/2019 2:30 Resu lts for this PM CDT procedure are i n the results section. TRIGLYCERIDES, MISC Routine 12/27/2019 2:30 Resu lts for this FLUID PM CDT procedure are i n the results section. PH, MISC FLUID Routine 12/27/2019 2:30 Results f or this PM CDT procedure are i n the results section. LDH, MISC FLUID Routine 12/27/2019 2:30 Results for this PM CDT procedure are i n the results section. LIPASE LEVEL, MISC FLUID Routine 12/27/2019 2:30 Results for this PM CDT procedure are i n the results section. GLUCOSE LEVEL, MISC Routine 12/27/2019 2:30 Resu lts for this FLUID PM CDT procedure are i n the results section. AMYLASE LEVEL, MISC Routine 12/27/2019 2:30 Resu lts for this FLUID PM CDT procedure are i n the results section. ALBUMIN, MISC FLUID Routine 12/27/2019 2:30 Resu lts for this PM CDT procedure are i n the results section. FUNGUS SMEAR Routine 12/27/2019 2:30 Results for this PM CDT procedure are i n the results section. GRAM STAIN Routine 12/27/2019 2:30 Results for this PM CDT procedure are i n the results section. FUNGUS CULTURE Routine 12/27/2019 2:30 Results f or this PM CDT procedure are i n the results section. AFB STAIN Routine 12/27/2019 2:30 Results for this PM CDT procedure are i n the results section. AFB CULTURE Routine 12/27/2019 2:30 Results for this PM CDT procedure are i n the results section. AEROBIC CULTURE Routine 12/27/2019 2:30 Results for this PM CDT procedure are i n the results section. ANAEROBIC CULTURE Routine 12/27/2019 2:30 Result s for this PM CDT procedure are i n the results section. XR CHEST 1 VW PORTABLE STAT 12/27/2019 12:26 R esults for this PM CDT procedure are i n the results section. POC GLUCOSE Routine 12/27/2019 11:54 Results for this AM CDT procedure are i n the results section. POC GLUCOSE Routine 12/27/2019 7:43 Results for this AM CDT procedure are i n the results section. URINE CULTURE Routine 12/27/2019 4:28 Results fo r this AM CDT procedure are i n the results section. POC GLUCOSE Routine 12/27/2019 4:25 Results for this AM CDT procedure are i n the results section. ESTIMATED GFR Routine 12/27/2019 1:58 Results fo r this AM CDT procedure are i n the results section. IONIZED CALCIUM Routine 12/27/2019 1:58 Results for this AM CDT procedure are i n the results section. MAGNESIUM LEVEL Routine 12/27/2019 1:58 Results for this AM CDT procedure are i n the results section. PHOSPHORUS LEVEL Routine 12/27/2019 1:58 Results for this AM CDT procedure are i n the results section. LACTIC ACID LEVEL Routine 12/27/2019 1:58 Result s for this AM CDT procedure are i n the results section. HEPATIC FUNCTION PANEL Routine 12/27/2019 1:58 R esults for this AM CDT procedure are i n the results section. BASIC METABOLIC PANEL Routine 12/27/2019 1:58 Re sults for this AM CDT procedure are i n the results section. POC GLUCOSE Routine 12/27/2019 1:25 Results for this AM CDT procedure are i n the results section. PARTIAL THROMBOPLASTIN Routine 12/27/2019 1:25 R esults for this TIME (PTT) AM CDT procedure are i n the results section. PROTHROMBIN TIME WITH Routine 12/27/2019 1:25 Re sults for this INR AM CDT procedure are i n the results section. HC COMPLETE BLD COUNT Routine 12/27/2019 1:25 Re sults for this W/AUTO DIFF AM CDT procedure are i n the results section. URINALYSIS SCREEN AND Routine 12/26/2019 11:26 Re sults for this MICROSCOPY, WITH REFLEX PM CDT proc edure are in TO CULTURE the results section. BLOOD CULTURE, AEROBIC & Routine 12/26/2019 10:15 Results for this ANAEROBIC PM CDT procedure are i n the results section. XR HIP 3-4 VIEWS STAT 12/26/2019 10:14 Results for this BILATERAL PM CDT procedure are i n the results section. XR PELVIS 3+ VW STAT 12/26/2019 10:14 Results for this PM CDT procedure are i n the results section. XR ABDOMEN 1 VW PORTABLE STAT 12/26/2019 10:14 Results for this PM CDT procedure are i n the results section. XR CHEST 1 VW PORTABLE STAT 12/26/2019 10:13 R esults for this PM CDT procedure are i n the results section. BLOOD CULTURE, AEROBIC & Routine 12/26/2019 10:00 Results for this ANAEROBIC PM CDT procedure are i n the results section. POC GLUCOSE Routine 12/26/2019 8:11 Results for this PM CDT procedure are i n the results section. ESTIMATED GFR STAT 12/26/2019 8:08 Results fo r this PM CDT procedure are i n the results section. HEPATIC FUNCTION PANEL STAT 12/26/2019 8:08 R esults for this PM CDT procedure are i n the results section. BASIC METABOLIC PANEL STAT 12/26/2019 8:08 Re sults for this PM CDT procedure are i n the results section. TYPE AND SCREEN STAT 12/26/2019 8:08 Results for this PM CDT procedure are i n the results section. LACTIC ACID LEVEL STAT 12/26/2019 8:08 Result s for this PM CDT procedure are i n the results section. MAGNESIUM LEVEL STAT 12/26/2019 8:08 Results for this PM CDT procedure are i n the results section. PHOSPHORUS LEVEL STAT 12/26/2019 8:08 Results for this PM CDT procedure are i n the results section. IONIZED CALCIUM STAT 12/26/2019 8:08 Results for this PM CDT procedure are i n the results section. HC COMPLETE BLD COUNT STAT 12/26/2019 8:08 Re sults for this W/AUTO DIFF PM CDT procedure are i n the results section. PARTIAL THROMBOPLASTIN STAT 12/26/2019 8:08 R esults for this TIME (PTT) PM CDT procedure are i n the results section. PROTHROMBIN TIME WITH STAT 12/26/2019 8:08 Re sults for this INR PM CDT procedure are i n the results section. MRI ABDOMEN W WO Routine 11/10/2019 11:40 Unspecified Results for this CONTRAST [employer] cirrhosis of liver procedure are in (HCC) the results Portal vein section. thrombosis ESTIMATED GFR Routine 11/10/2019 10:51 Results fo r this [facility] [employer] procedure are i n the results section. POC CREATININE Routine 11/10/2019 10:51 Results f or this [facility] procedure are i n the results section. CT ABDOMEN W WO CONTRAST Routine 10/13/2019 10:24 Hepatic cirr hosis, Results for this [employer] unspecified hepatic procedur e are in cirrhosis type, the results unspecified whether section. ascites present (HCC) ESTIMATED GFR Routine 10/13/2019 9:57 Results fo r this [facility] procedure are i n the results section. POC CREATININE Routine 10/13/2019 9:57 Results f or this [facility] procedure are i n the results section. after 02/09/2019 Results US Abdominal Paracentesis Imaging (12/31/2019 2:15 PM CDT)Only the most recent of2 resultswithin the time period is included. Specimen Narrative Performed At PROCEDURE: [facility] Ultrasound-guided paracentesis Performing Radiologist: Joseline Quintero PA-C Assistants: None Pre Procedure Diagnosis: ASCITES Post Procedure Diagnosis: ASCITES Indication: Ascites Complications: No immediate post procedure complication s. IMPRESSION: 1.Technically successful ultrasound-guided diagnostic/ therapeutic paracentesis. 2.There is a large simple ascites. 3.Large residual ascites is seen on post procedure ultrasound. PLAN: The patient will be monitored in the recovery area for approximately 30 minutes to evaluate vital signs and bloo d pressure. PROCEDURE SUMMARY: Access of the peritoneal space using ult rasound guidance PROCEDURE DETAILS: Pre-procedure: Comparison studies: None Written and informed consent for the procedure and mon itored conscious sedation was obtained from the patient. Prophylactic antibiotics: None Preparation: The right lower quadrant of the abdomen w as prepared and draped using all elements of maximal sterile barrier t echnique including sterile gloves, sterile gown, catheter, mask, large st erile sheet, sterile ultrasound probe cover, hand hyg iene and cutaneous antisepsis using chlorhex idine. Anesthesia/Sedation: Level of anesthesia: None (Lidocaine onl y) Medications used: 1% lidocaine Duration of anesthesia/sedation: N/A Access: Local anesthesia was administered. The right lower abilio drant was evaluated with preprocedure ultrasound. Real-time ultr asound was used to visualize needle entry into the peritone al space. Access technique: One-step Catheter Paracentesis: Fluid Color: Yellow Volume Removed: 5000 mL Fluid Analysis: The fluid was sent for laboratory test s ordered by the primary team Closure: The One-step catheter was removed and hemostasis was a chieved with manual compression. A sterile dressing w as applied. Additional details: Estimated blood loss: Less than [address] [facility]-[id number] Procedure Note Hm Interface, Radiology Results Incoming - 01/04/2020 2:36 PM CDT PROCEDURE: Ultrasound-guided paracentesis Performing Radiologist: Joseline Quintero PA-C Assistants: None Pre Procedure Diagnosis: ASCITES Post Procedure Diagnosis: ASCITES Indication: Ascites Complications: No immediate post procedure complication s. IMPRESSION: 1.Technically successful ultrasound-guid ed diagnostic/therapeutic paracentesis. 2.There is a large simple ascites. 3.Large residual ascites is seen on post procedure ultrasound. PLAN: The patient will be monitored in the rec overy area for approximately 30 minutes to evaluate vital signs and blood pressure. PROCEDURE SUMMARY: Access of the peritoneal space using ult rasound guidance PROCEDURE DETAILS: Pre-procedure: Comparison studies: None Written and informed consent for the pro cedure and monitored conscious sedation was obtained from the patient. Prophylactic antibiotics: None Preparation: The right lower quadrant of the abdomen was prepared and draped using all elements of maximal sterile barrier technique including sterile gloves, sterile gown, catheter, mask, large sterile sheet, sterile ultrasound probe cover, hand hygiene and cutaneous antisepsis using chlorhex idine. Anesthesia/Sedation: Level of anesthesia: None (Lidocaine onl y) Medications used: 1% lidocaine Duration of anesthesia/sedation: N/A Access: Local anesthesia was administered. The r ight lower quadrant was evaluated with preprocedure ultrasound. Real-time ultrasound was used to visualize needle entry into the peritoneal space. Access technique: One-step Catheter Paracentesis: Fluid Color: Yellow Volume Removed: 5000 mL Fluid Analysis: The fluid was sent for l aboratory tests ordered by the primary team Closure: The One-step catheter was removed and he mostasis was achieved with manual compression. A sterile dressing was applied. Additional details: Estimated blood loss: Less than [address] [facility]-[id number] Performing Organization Address [facility] Phone Number [facility] [address] [place] [phone] Fungus smear (12/31/2019 12:49 PM CDT)Only the most recent of2 resultswithin the time period is included. Pathologist Sig nature Fungus smear No fungi observed. [facility] Comment: HOSPITAL Specimen Information Specimen Source: Peritoneal fluid Specimen Site: Peritoneal Specimen Peritoneal fluid - Peritoneal Performing Organization Address [facility] Phone Number [facility] DEPARTMENT OF PATHOLOGY AND [address] [place] [phone] Lipase level, misc fluid (12/31/2019 12:49 PM CDT)Only the most recent of2 resultswithin the time period is included. Fluid type Peritoneal [facility] Lipase, fluid 7 U/L [facility] Comment: HOSPITAL The reference interval(s) and other method performance specifications have not been established for this body fluid. The test results must be integrated into the clinical context for interpretation. This test has been modified from the manufacturers instructions. The performance characteristics were determined by [facility] in a manner consistent with CLIA requirements. This test has not been cleared or approved by the U.S. Food and Drug Administration. Specimen Fluid Performing Organization Address [facility] Phone Number [facility] DEPARTMENT OF PATHOLOGY AND [address] [place] [phone] Aerobic culture (12/31/2019 12:49 PM CDT)Only the most recent of2 resultswithin the time period is included. Aerobic culture No growth after 3 days. [facility] IST isolate Comment: HOSPITAL Specimen Information Specimen Source: Peritoneal fluid Specimen Site: Peritoneal Specimen Peritoneal fluid - Peritoneal Performing Organization Address City/[facility] Phone Number [facility] DEPARTMENT OF PATHOLOGY AND [address] [place] [address] [place] [phone] Gram stain (12/31/2019 12:49 PM CDT)Only the most recent of2 resultswithin the time period is included. Gram stain isolate Few WBC's [facility] No organisms seen HOSPITAL Comment: Specimen Information Specimen Source: Peritoneal fluid Specimen Site: Peritoneal Specimen Peritoneal fluid - Peritoneal Performing Organization Address City/[facility] Phone Number [facility] DEPARTMENT OF PATHOLOGY AND [address] [place] [phone] AFB stain (12/31/2019 12:49 PM CDT)Only the most recent of2 resultswithin the time period is included. Pathologist Sig nature AFB stain No acid fast bacilli (AFB) seen. [facility] Specimen Information Specimen Source: Peritoneal fluid Specimen Site: Peritoneal Specimen Peritoneal fluid - Peritoneal Performing Organization Address City/[facility] [facility] Phone Number [facility] DEPARTMENT OF PATHOLOGY AND [address] [place] [address] [place] [phone] Fungus culture (12/31/2019 12:49 PM CDT)Only the most recent of2 resultswithin the time period is included. Fungus culture No growth after 4 weeks of incubation. FERNANDEZ [facility] isolate Comment: HOSPITAL Specimen Information Specimen Source: Peritoneal fluid Specimen Site: Peritoneal Specimen Peritoneal fluid - Peritoneal Performing Organization Address City/[facility]/Zipcode Phone Number [facility] DEPARTMENT OF PATHOLOGY AND [address] [place] [phone] Anaerobic culture (12/31/2019 12:49 PM CDT)Only the most recent of2 results within the time period is included. Anaerobic culture No anaerobic organisms isolated. ESPINOZA STON [facility] isolate Comment: HOSPITAL Specimen Information Specimen Source: Peritoneal fluid Specimen Site: Peritoneal Specimen Peritoneal fluid - Peritoneal Performing Organization Address City/[facility]/Zipcode Phone Number [facility] DEPARTMENT OF PATHOLOGY AND [address] [place] [address] Cell count and differential, body fluid (12/31/2019 12:49 PM CDT)Only the most recent of2 resultswithin the time period is included. Pathologist [facility] fluid type Ascitic [facility] Color, fluid Yellow [facility] Appearance, fluid Clear [facility] RBC, fluid SEE /CMM [facility] COMMENTComment: HOSPITAL 2+ (500 - 10,000 RBC/CMM) Nucleated cells, 159 /CMM [facility] Fluid mononuclear See Diff [facility] Neutrophils, fluid 2 % [facility] Lymphocytes, fluid 56 % [facility] Mesothelial cells, 1 % [facility] Macrophages, fluid 41 % [facility] Specimen Fluid Performing Organization Address City/[facility] Phone Number [facility] DEPARTMENT OF PATHOLOGY AND [address] [place] [phone] Triglycerides, misc fluid (12/31/2019 12:49 PM CDT)Only the most recent of2 resultswithin the time period is included. [facility] Fluid type Peritoneal [facility] Triglyceride, 29 mg/dL [facility] Comment: HOSPITAL The reference interval(s) and other method performance specifications have not been established for this body fluid. The test results must be integrated into the clinical context for interpretation. This test has been modified from the manufacturers instructions. The performance characteristics were determined by [facility] in a manner consistent with CLIA requirements. This test has not been cleared or approved by the U.S. Food and Drug Administration. Specimen Fluid Performing Organization Address City/[facility]/Zipcode Phone Number [facility] DEPARTMENT OF PATHOLOGY AND [address] [place] [phone] Protein, misc fluid (12/31/2019 12:49 PM CDT)Only the most recent of2 results within the time period is included. [facility] Fluid type Peritoneal [facility] Protein, fluid 1.8 g/dL [facility] Comment: [facility] The reference interval(s) and other method performance specifications have not been established for this body fluid. The test results must be integrated into the clinical context for interpretation. This test has been modified from the manufacturers instructions. The performance characteristics were determined by [facility] in a manner consistent with CLIA requirements. This test has not been cleared or approved by the U.S. Food and Drug Administration. Specimen Fluid Performing Organization Address City/[facility] [place] Phone Number [facility] DEPARTMENT OF PATHOLOGY AND [address] [place] [phone] [address] LDH, misc fluid (12/31/2019 12:49 PM CDT)Only the most recent of2 resultswithin the time period is included. Fluid type Peritoneal [facility] LDH, fluid 47 U/L [facility] Comment: HOSPITAL The reference interval(s) and other method performance specifications have not been established for this body fluid. The test results must be integrated into the clinical context for interpretation. This test has been modified from the manufacturers instructions. The performance characteristics were determined by [facility] in a manner consistent with CLIA requirements. This test has not been cleared or approved by the U.S. Food and Drug Administration. Specimen Fluid Performing Organization Address [facility] [place] Phone Number [facility] DEPARTMENT OF PATHOLOGY AND [phone] [facility] [address] [place] [phone] Glucose level, misc fluid (12/31/2019 12:49 PM CDT)Only the most recent of2 resultswithin the time period is included. Fluid type Peritoneal [facility] Glucose, fluid 196 mg/dL [facility] Comment: HOSPITAL The reference interval(s) and other method performance specifications have not been established for this body fluid. The test results must be integrated into the clinical context for interpretation. This test has been modified from the manufacturers instructions. The performance characteristics were determined by [facility] in a manner consistent with CLIA requirements. This test has not been cleared or approved by the U.S. Food and Drug Administration. Specimen Fluid Performing Organization Address [facility]/Zipcode Phone Number [facility] DEPARTMENT OF PATHOLOGY AND [address] [place] [address] [phone] [address] Albumin, misc fluid (12/31/2019 12:49 PM CDT)Only the most recent of2 results within the time period is included. Fluid type Peritoneal [facility] Albumin, fluid 0.8 g/dL [facility] Comment: HOSPITAL The reference interval(s) and other method performance specifications have not been established for this body fluid. The test results must be integrated into the clinical context for interpretation. This test has been modified from the manufacturers instructions. The performance characteristics were determined by [facility] in a manner consistent with CLIA requirements. This test has not been cleared or approved by the U.S. Food and Drug Administration. Specimen Fluid Performing Organization Address City/[facility] Hospitalcode Phone Number [facility] DEPARTMENT OF PATHOLOGY AND [address] [place] [address] pH, misc fluid (12/31/2019 12:49 PM CDT)Only the most recent of2 resultswithin the time period is included. Pathologist Sig nature Fluid type Peritoneal [facility] pH, fluid 8.00Comment: Reference [facility] ranges are not HOSPITAL established for Miscellanous specimens. Specimen Fluid Performing Organization Address City/[facility] Hospitalcode Phone Number [facility] DEPARTMENT OF PATHOLOGY AND [address] [place], [place] [address] [address] [place] [phone] POC glucose (12/31/2019 11:45 AM CDT)Only the most recent of24 resultswithin the time period is included. Pathologist Sig nature POC glucose 225 (H) 65 - 99 mg/dL [facility] Comment: HOSPITAL Machine Grinder Name: Darling Mace Device ID: [id number] Chartable: [facility] Notified RN Specimen Blood Performing Organization Address City/State/Zipcode Phone Number [facility] DEPARTMENT OF PATHOLOGY AND [address] [place], [place] [address] [address] [place] [phone] Prothrombin time with INR (12/31/2019 4:50 AM CDT)Only the most recent of6 resultswithin the time period is included. Prothrombin time 17.9 (H) 11.5 - 14.5 [facility] INR 1.5 [place] Comment: [facility] International Normalized Ratio (INR) is a [facility] monitoring tool for patients who are stable on oral anticoagulant therapy. An INR of 2.0-3.0 is suggested for deep vein thrombosis/pulmonary embolism. Specimen Blood Performing Organization Address City/State/Zipcode Phone Number [facility] DEPARTMENT OF PATHOLOGY AND [address] [place], [place] [phone] GENOMIC MEDICINE [facility] [address] [place] [address] CBC with platelet and differential (12/31/2019 4:50 AM CDT)Only the most recent of7 resultswithin the time period is included. Pathologist [facility] WBC 2.87 (L) 4.50 - 11.00 [facility] k/uL [facility] RBC 3.90 (L) 4.20 - 5.50 [facility] m/[facility] HGB 9.0 (L) 12.0 - 16.0 [facility] HCT 30.1 (L) 37.0 - 47.0 % [facility] MCV 77.2 (L) 82.0 - 100.0 [facility] MCH 23.1 (L) 27.0 - 34.0 pg [facility] MCHC 29.9 (L) 31.0 - 37.0 [facility] RDW - SD 55.5 (H) 37.0 - 55.0 fL [facility] MPV 10.2 8.8 - 13.2 [facility] Platelet count 100 (L) 150 - 400 k/uL [facility] Nucleated RBC 0.00 /100 WBC [facility] Neutrophils 67.0 39.0 - 69.0 % [facility] Lymphocytes 15.3 (L) 25.0 - 45.0 % [facility] Monocytes 13.6 (H) 0.0 - 10.0 % [facility] Eosinophils 3.5 0.0 - 5.0 % [facility] Basophils 0.3 0.0 - 1.0 % [facility] Immature granulocytes 0.3Comment: 0.0 - 1.0 % [facility] "Immature HOSPITAL granulocytes" (promyelocytes , myelocytes, metamyelocytes ) Specimen Blood Performing Organization Address City/State/Zipcode Phone Number [facility] DEPARTMENT OF PATHOLOGY AND [address] [place], [place] [phone] [address] Estimated GFR (12/31/2019 4:00 AM CDT)Only the most recent of8 resultswithin the time period is included. [facility] Estimated GFR 89 mL/min/1.73 [facility] Comment: m2 HOSPITAL Catergory Units Interpretation G1 >=90 Normal or high G2 60-89 Mildly decreased G3a 45-59 Mildly to moderately decreas ed G3b 30-44 Moderately to severely decre ased G4 15-29 Severely decreased G5 <15 Kidney failure The eGFR was calculated using the Chronic Kidney Disea se Epidemiology Collaboration (CKD-EPI) equation. Interpretation is based on recommendations of the National Kidney Foundation-Kidney Disease Outcomes Abilio lity Initiative (NKF-KDOQI) published in 2014. Specimen Performing Organization Address City/[facility]/Zipcode Phone Number [facility] DEPARTMENT OF PATHOLOGY AND [address] [place] [phone] [facility] [address] [place] [address] Comprehensive metabolic panel (12/31/2019 4:00 AM CDT)Only the most recent of3 resultswithin the time period is included. [facility] Sodium 129 (L) 135 - 148 [facility] mEq/L [facility] Potassium 3.8 3.5 - 5.0 [facility] mEq/L [facility] Chloride 101 98 - 112 [facility] mEq/L [facility] CO2 18 (L) 24 - 31 mEq/L [facility] Anion gap 10@ANIO 7 - 15 mEq/L [facility] BUN 13 8 - 23 mg/dL [facility] Creatinine 0.62 0.50 - 0.90 [facility] mg/dL HOSPITAL Glucose 145 (H) 65 - 99 mg/dL [facility] Calcium 8.8 8.8 - 10.2 [facility] mg/dL [facility] Protein 6.4 6.3 - 8.3 [facility] Comment: g/dL HOSPITAL - [place] 4.6-7.0 g/dL 1 week 4.4-7.6 g/dL 7 months-1year 5.1-7.3 g/dL 1-2 years 5.6-7.5 g/dL >3 years 6.0-8.0 g/dL 18-150 6.3-8.3 g/dL Albumin 2.5 (L) 3.5 - 5.0 [facility] g/dL [facility] A/G ratio 0.6 (L) 0.7 - 3.8 [facility] Alkaline phosphatase 121 (H) 35 - 104 U/L [facility] AST 26 10 - 35 U/L [facility] ALT 11 5 - 50 U/L [facility] Total bilirubin 0.8 0.0 - 1.2 [facility] mg/dL HOSPITAL Specimen Blood Performing Organization Address City/[facility] Hospitalcode Phone Number [facility] DEPARTMENT OF PATHOLOGY AND [address] [place] [address] [phone] [address] Alpha fetoprotein (12/30/2019 5:40 AM CDT) Alpha fetoprotein 1.9 0.0 - 8.3 [place] Comment: ng/mL [facility] The Ed 8000 AFP immunoassay was used. HOSPITAL Results obtained with different assay methods or kits should not be used interchangeably and may be differen t. Specimen Serum Performing Organization Address City/[facility] Hospitalcode Phone Number [facility] DEPARTMENT OF PATHOLOGY AND [address] [place] [address] [phone] [address] Gastrointestinal panel (12/29/2019 8:14 AM CDT) Adenovirus 40/41 PCR Not Detected [place] Comment: [facility] Specimen Information HOSPITAL Specimen Source: Stool Specimen Site: Nonpreserved Astrovirus PCR Not Detected [facility] Campylobacter PCR Not Detected [facility] Clostridioides difficile Detected (A) [facility] Cryptosporidium PCR Not Detected [facility] Cyclospora cayetanensis Not Detected [facility] Enteroaggregative E coli Not Detected [facility] Entamoeba histolytica Not Detected [facility] Enteroinvasive E coli Not Detected [facility] Enteropathogenic E coli Not Detected [facility] Norovirus PCR Not Detected [facility] Plesiomonas shigelloides Not Detected [facility] Rotavirus PCR Not Detected [facility] Salmonella PCR Not Detected [facility] Sapovirus PCR Not Detected [facility] Enterotoxigenic E coli Not Detected [facility] Shigatoxin producing E Not Detected [place] coli [facility] E coli O157 PCR Not Detected [facility] Vibrio PCR Not Detected [facility] Vibrio cholerae PCR Not Detected [facility] Yersinia enterocolitica Not Detected [facility] Giardia lamblia PCR Not Detected (A) [facility] Giardia lamblia PCR Positive for C. difficile toxin [facility] (A) HOSPITAL Specimen Stool - Nonpreserved Performing Organization Address City/[facility] Hospitalcode Phone Number [facility] DEPARTMENT OF PATHOLOGY AND [address] [place] [phone] Partial thromboplastin time, activated (12/28/2019 4:35 AM CDT)Only the most recent of3 resultswithin the time period is included. PTT 39.6 (H) 23.0 - 36.0 [facility] Comment: [facility] PTT therapeutic range for unfractionated heparin is 61.0-112.0 seconds which corresponds to Anti-Xa 0.3-0.7 U/ml. Specimen Blood Performing Organization Address [facility] [place] Phone Number [facility] DEPARTMENT OF PATHOLOGY AND [address] [place] [phone] Fibrinogen (12/28/2019 4:35 AM CDT) Pathologist Sig nature Fibrinogen 337 200 - 450 mg/dL [facility] Specimen Blood Performing Organization Address [facility] Hospitalcode Phone Number [facility] DEPARTMENT OF PATHOLOGY AND [address] [place] [phone] Phosphorus level (12/28/2019 4:00 AM CDT)Only the most recent of3 resultswithin the time period is included. Pathologist Sig nature Phosphorus 3.4 2.4 - 4.5 mg/dL [facility] L Specimen Blood Performing Organization Address City/[facility] Hospitalcode Phone Number [facility] DEPARTMENT OF PATHOLOGY AND [address] [place] [address] [phone] [address] Magnesium level (12/28/2019 4:00 AM CDT)Only the most recent of3 resultswithin the time period is included. Pathologist Sig nature Magnesium 1.8 1.6 - 2.4 mg/dL [facility] L Specimen Blood Performing Organization Address City/[facility] Hospitalcode Phone Number [facility] DEPARTMENT OF PATHOLOGY AND [address] [place] [address] [phone] [address] Ionized calcium (12/28/2019 4:00 AM CDT)Only the most recent of3 resultswithin the time period is included. Pathologist Sig nature pH 7.52 [facility] Ionized calcium 1.14 1.11 - 1.32 mmol/L [facility] Specimen Blood Performing Organization Address [facility] Hospitalcode Phone Number [facility] DEPARTMENT OF PATHOLOGY AND [address] [place] [address] [phone] [address] Hepatic function panel (12/28/2019 4:00 AM CDT)Only the most recent of3 results within the time period is included. Albumin 2.8 (L) 3.5 - 5.0 [facility] g/dL [facility] Total bilirubin 1.2 0.0 - 1.2 [facility] mg/dL [facility] Bilirubin direct 0.3 0.0 - 0.3 [facility] mg/dL [facility] Alkaline phosphatase 118 (H) 35 - 104 U/L [facility] Protein 6.4 6.3 - 8.3 [facility] Comment: g/dL HOSPITAL - 4.6-7.0 g/dL 1 week 4.4-7.6 g/dL 7 months-1year 5.1-7.3 g/dL 1-2 years 5.6-7.5 g/dL >3 years 6.0-8.0 g/dL 18-150 6.3-8.3 g/dL ALT 10 5 - 50 U/L [facility] AST 26 10 - 35 U/L [facility] Specimen Blood Performing Organization Address City/[facility] Hospitalcode Phone Number [facility] DEPARTMENT OF PATHOLOGY AND [address] [place] [address] [phone] [address] Basic metabolic panel (12/28/2019 4:00 AM CDT)Only the most recent of3 results within the time period is included. Pathologist Sig nature Sodium 134 (L) 135 - 148 mEq/L [facility] Potassium 4.4 3.5 - 5.0 mEq/L [facility] Chloride 100 98 - 112 mEq/L [facility] CO2 20 (L) 24 - 31 mEq/L [facility] Anion gap 14@ANIO 7 - 15 mEq/L [facility] BUN 27 (H) 8 - 23 mg/dL [facility] Creatinine 1.06 (H) 0.50 - 0.90 mg/dL [facility] Glucose 89 65 - 99 mg/dL [facility] Calcium 8.8 8.8 - 10.2 mg/dL [facility] Specimen Blood Performing Organization Address City/[facility] Hospitalcode Phone Number [facility] DEPARTMENT OF PATHOLOGY AND [address] [place] [address] [place] [phone] AFB culture (12/27/2019 2:30 PM CDT) AFB culture No growth after 6 weeks of incubation. [facility] [facility] isolate Comment: HOSPITAL Specimen Information Specimen Source: Paracentesis fluid Specimen Site: Not otherwise specified Specimen Paracentesis fluid - Not otherwise speci fied Performing Organization Address City/[facility]/Zipcode Phone Number [facility] DEPARTMENT OF PATHOLOGY AND [address] [place] [address] [phone] [address] Bilirubin total, misc fluid (12/27/2019 2:30 PM CDT) Fluid type Paracentesis [facility] Bilirubin total, 0.4 mg/dL [facility] Comment: HOSPITAL The reference interval(s) and other method performance specifications have not been established for this body fluid. The test results must be integrated into the clinical context for interpretation. This test has been modified from the manufacturers instructions. The performance characteristics were determined by [facility] in a manner consistent with CLIA requirements. This test has not been cleared or approved by the U.S. Food and Drug Administration. Specimen Fluid Narrative Performed At [facility] DEPARTMENT OF PATHOLOGY AND GENOMIC MEDICINE Performing Organization Address City/[facility] Hospitalcode Phone Number [facility] DEPARTMENT OF PATHOLOGY AND [address] [place] [address] [place] [phone] Amylase level, misc fluid (12/27/2019 2:30 PM CDT) Fluid type Paracentesis [facility] Amylase, fluid 15 U/L [facility] Comment: HOSPITAL The reference interval(s) and other method performance specifications have not been established for this body fluid. The test results must be integrated into the clinical context for interpretation. This test has been modified from the manufacturers instructions. The performance characteristics were determined by [facility] in a manner consistent with CLIA requirements. This test has not been cleared or approved by the U.S. Food and Drug Administration. Specimen Fluid Narrative Performed At [facility] DEPARTMENT OF PATHOLOGY AND [facility] MEDICINE Performing Organization Address [facility] Phone Number [facility] DEPARTMENT OF PATHOLOGY AND [address] [place] [phone] Creatinine level, misc fluid (12/27/2019 2:30 PM CDT) [facility]uid [facility] Creatinine, fluid 1.2 mg/dL [facility] Comment: HOSPITAL The reference interval(s) and other method performance specifications have not been established for this body fluid. The test results must be integrated into the clinical context for interpretation. This test has been modified from the manufacturers instructions. The performance characteristics were determined by [facility] in a manner consistent with CLIA requirements. This test has not been cleared or approved by the U.S. Food and Drug Administration. Specimen Fluid Narrative Performed At [facility] DEPARTMENT OF PATHOLOGY AND GENOMIC MEDICINE Performing Organization Address City/[facility] Hospitalcode Phone Number [facility] DEPARTMENT OF PATHOLOGY AND [address] [place] [phone] XR Chest 1 Vw Portable (12/27/2019 12:26 PM CDT)Only the most recent of2 results within the time period is included. Specimen Narrative Performed At EXAMINATION: XR CHEST 1 VW PORTABLE [facility] CLINICAL HISTORY: ICU pt stable with no clinical status changes COMPARISON: Most Recent Prior at [facility] IMPRESSION: Hypoventilation with stable cardiomegaly and basilar a telectasis. Small right effusion may be present. No pneumo thorax. [id number] Procedure Note Hm Interface, Radiology Results Incoming - 12/27/2019 12:32 PM CDT EXAMINATION: XR CHEST 1 VW PORTABLE CLINICAL HISTORY: ICU pt stable with n o clinical status changes COMPARISON: Most Recent Prior at [facility] IMPRESSION: Hypoventilation with stable cardiomegaly and basilar atelectasis. Small right effusion may be present. No pneumothorax. RM-[id number] Performing Organization Address City/State/Zipcode Phone Number [facility] [address] [place] [address] Urine culture (12/27/2019 4:28 AM CDT) [facility] Urine culture Citrobacter freundii complex [facility] isolate colony count undetermined, HOSPITAL probably due to inhibiting substance. The performance characteristics of this assay on this isolate were validated by the Microbiology Laboratory at [facility]. This source has not been approve d by the U.S. Food and Drug Administration. The results are n ot intended to be used as the sole means for clinical aubrey gnosis or patient management. The Microbiology Laboratory i s authorized under the clinical Laboratory Improvement Amendments of 1988 (CLIA-88) to perform high complexit y testing. (A) Comment: Specimen Information Specimen Source: Urine Specimen Site: Clean catch Specimen Urine Organism Antibiotic Method Susceptibility Citrobacter freundii Ampicillin TIP >16 mcg/mL: Resistant complex Citrobacter freundii Amoxicillin/Clavulanate TIP >16 /8 mcg/mL: Resistant complex Citrobacter freundii Amikacin TIP <=4 mcg/mL: Susceptible complex Citrobacter freundii Aztreonam TIP <=1 mcg/mL: Susceptible complex Citrobacter freundii Ceftazidime TIP 1 mcg/mL: S usceptible complex Citrobacter freundii Ciprofloxacin TIP <=0.5 mcg/m L: Susceptible complex Citrobacter freundii Ceftriaxone TPI <=0.5 mcg/m L: Susceptible complex Citrobacter freundii Cefuroxime Sodium TIP 8 mcg/mL: Resistant complex Citrobacter freundii Cefazolin TIP >32 mcg/mL: Resistant complex Citrobacter freundii Cefepime TIP <=0.5 mcg/m L: Susceptible complex Citrobacter freundii Nitrofurantoin TIP 32 mcg/mL: Susceptible complex Citrobacter freundii Cefoxitin TIP >16 mcg/mL: Resistant complex Citrobacter freundii Gentamicin TIP 1 mcg/mL: S usceptible complex Citrobacter freundii Imipenem TIP <=0.25 mcg/ mL: Susceptible complex Citrobacter freundii Levofloxacin TIP <=1 mcg/mL: Susceptible complex Citrobacter freundii Meropenem TIP <=0.125 mcg /mL: Susceptible complex Citrobacter freundii Tobramycin TIP 1 mcg/mL: S usceptible complex Citrobacter freundii Ampicillin/Sulbactam TIP 8/4 mc g/mL: Resistant complex Citrobacter freundii Trimethoprim/Sulfamethoxazo TIP <=0.5/9.5 mcg/mL: complex le Susceptible Citrobacter freundii Tetracycline TIP <=1 mcg/mL: Susceptible complex Citrobacter freundii Piperacillin/Tazobactam TIP 4/4 mcg/mL: Susceptible complex Citrobacter freundii Ertapenem TIP <=0.125 mcg /mL: Susceptible complex Citrobacter freundii Tigecycline TIP <=0.5 mcg/m L: Susceptible complex Performing Organization Address City/[facility] Phone Number [facility] DEPARTMENT OF PATHOLOGY AND [address] [place] [address] [phone] [address] Lactic acid level (12/27/2019 1:58 AM CDT)Only the most recent of2 results within the time period is included. Pathologist [facility] nature Lactic acid 1.4 0.5 - 2.2 mmol/L [facility] [place] [place] Specimen Blood Performing Organization Address City/[facility] Phone Number [facility] DEPARTMENT OF PATHOLOGY AND [address] [place] [address] [phone] [address] Urinalysis screen and microscopy, with reflex to culture (12/26/2019 11:26 PM CDT) Specimen site Clean catch [facility] Color, UA Camila [facility] Appearance, UA Cloudy [facility] Specific gravity, UA 1.018 1.001 - 1.035 [facility] pH, UA 5.0 5.0 - 8.5 [facility] Protein, UA Negative Negative [facility] Glucose, UA Negative Negative [facility] Ketones, UA Negative Negative [facility] Bilirubin, UA Negative Negative [facility] Blood, UA Small (A) Negative [facility] Nitrite, UA Negative Negative [facility] Urobilinogen, UA 2.0 (A) <2.0 [facility] Leukocyte esterase, Moderate (A) Negative [facility] Epithelial cells, UA 1 /HPF [facility] WBC, UA 116 (H) 0 - 4 /HPF [facility] RBC, UA 6 (H) 0 - 5 /HPF [facility] Bacteria, UA Many (A) None seen [facility] WBC clumps, UA Many (A) [facility] Yeast, UA None seen [facility] Yeast with None seen [facility] pseudohyphae, [facility] Hyaline casts, UA 17 /LPF [facility] Specimen Urine Performing Organization Address City/State/Zipcode Phone Number [facility] DEPARTMENT OF PATHOLOGY AND [address] [place], [place] [phone] [facility] [address] [place] [id number] Blood culture, aerobic & anaerobic (12/26/2019 10:15 PM CDT)Only the most recent of2 resultswithin the time period is included. Blood culture No growth after 5 days of incubation. [facility] isolate Comment: HOSPITAL Specimen Information Specimen Source: Blood Specimen Site: Antecubital Right Specimen Blood Performing Organization Address City/State/Zipcode Phone Number [facility] DEPARTMENT OF PATHOLOGY AND [address] [place], [place] [address] [facility] [address] [place] [address] XR Hip 3-4 Views Bilateral (12/26/2019 10:14 PM CDT) Specimen Narrative Performed At EXAMINATION: XR HIP 3-4 VIEWS BILATERAL, XR PELVIS 3 VW HM [facility] CLINICAL HISTORY: s p fall and hip pain outside r eport pelvic fracture COMPARISON: Same-day abdomen radiograph IMPRESSION: 1. Evaluation is limited due to poor penetration. Comm inuted mildly impacted fracture of the right superior pubic ramus de la garza ggested and extending to the pubic body. Femoral heads are seated well within the acetabula with mild bilateral hip joint osteoarthritis. Mild bilateral sacroilia c joint osteoarthrosis. Procedure Note Interface, Radiology Results Incoming - 12/26/2019 10:24 PM CDT EXAMINATION: XR HIP 3-4 VIEWS BILATERAL, XR PELVIS 3 VW CLINICAL HISTORY: s p fall and hip pain outside report pelvic fracture COMPARISON: Same-day abdomen radiograph IMPRESSION: 1. Evaluation is limited due to poor pen etration. Comminuted mildly impacted fracture of the right superior pubic ramus suggested and extending to the pubic body. Femoral heads are seated well within the acetabula with mild bilateral hip joint osteoarthritis. Mild bilateral sacroilia c joint osteoarthrosis. Performing Organization Address [facility] Phone Number [facility] [address] [place] [address] XR Pelvis 3+ Vw (12/26/2019 10:14 PM CDT) Specimen Narrative Performed At EXAMINATION: XR HIP 3-4 VIEWS BILATERAL, XR PELVIS 3 VW [facility] CLINICAL HISTORY: s p fall and hip pain outside r eport pelvic fracture COMPARISON: Same-day abdomen radiograph IMPRESSION: 1. Evaluation is limited due to poor penetration. Comm inuted mildly impacted fracture of the right superior pubic ramus de la garza ggested and extending to the pubic body. Femoral heads are seated well within the acetabula with mild bilateral hip joint osteoarthritis. Mild bilateral sacroilia c joint osteoarthrosis. Procedure Note Interface, Radiology Results Incoming - 12/26/2019 10:24 PM CDT EXAMINATION: XR HIP 3-4 VIEWS BILATERAL, XR PELVIS 3 VW CLINICAL HISTORY: s p fall and hip pain outside report pelvic fracture COMPARISON: Same-day abdomen radiograph IMPRESSION: 1. Evaluation is limited due to poor pen etration. Comminuted mildly impacted fracture of the right superior pubic ramus suggested and extending to the pubic body. Femoral heads are seated well within the acetabula with mild bilateral hip joint osteoarthritis. Mild bilateral sacroilia c joint osteoarthrosis. Performing Organization Address [facility] Phone Number [facility] [address] [place] [address] XR Abdomen 1 Vw Portable (12/26/2019 10:14 PM CDT) Specimen Narrative Performed At EXAMINATION: XR ABDOMEN 1 VW PORTABLE [facility] CLINICAL HISTORY: Abd pain unspecified, Abd swelli ng ascites suspected COMPARISON: None. IMPRESSION: The bowel gas pattern is nonspecific. Stool and air ar e seen throughout the colon. The abdomen appears distended with somewhat centralize d bowel, suggesting ascites. Cholecystectomy clips project over the r ight upper quadrant. No acute osseous abnormality is seen. [id number] Procedure Note Hm Interface, Radiology Results Incoming - 12/26/2019 10:22 PM CDT EXAMINATION: XR ABDOMEN 1 VW PORTABLE CLINICAL HISTORY: Abd pain unspecified , Abd swelling ascites suspected COMPARISON: None. IMPRESSION: The bowel gas pattern is nonspecific. St ool and air are seen throughout the colon. The abdomen appears distended with somew hat centralized bowel, suggesting ascites. Cholecystectomy clips project over the r ight upper quadrant. No acute osseous abnormality is seen. [id number] Performing Organization Address City/State/Zipcode Phone Number [facility] [address] [place] [address] Type and screen (12/26/2019 8:08 PM CDT) Pathologist Sig nature ABO grouping A [facility] Rh type POS [facility] Antibody screen (gel) NEG [facility] Specimen Blood Performing Organization Address City/State/Zipcode Phone Number [facility] DEPARTMENT OF PATHOLOGY AND [address] [place], [place] [address] GENOMIC MEDICINE [facility] [address] [place] [address] MRI Abdomen W Wo Contrast (11/10/2019 11:40 AM CAREER COUNSELOR) Specimen Narrative Performed At This result has an attachment that is no t available. EXAMINATION: MRI ABDOMEN W WO CONTRAST [facility] CLINICAL HISTORY: K74.60 Unspecified c irrhosis of liver, I81 Portal vein thrombosis, CIRRHOSIS TECHNIQUE: Multiplanar multisequence MR images of the abdomen were obtained pre- and post dynamic intravenous administration of Gadolinium. COMPARISON: CT performed on 10/13/2019. FINDINGS: Evaluation is limited secondary to motion artifact and ascites. Liver: The liver is cirrhotic. No suspicious hepatic l esion is identified. Spleen: Mild splenomegaly. No focal lesion. Pancreas: No focal abnormality. Gallbladder and biliary tree: Surgical c hanges related to cholecystectomy. There is no intra or extrahepatic biliary ductal dilatation. There is no evidence of choledocholithiasis. Adrenal glands: No focal abnormality. Kidneys: No renal mass or hydronephrosis. 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 Additionally, there is extension of thrombus into the splenic and superior mesenteric veins. None of this thrombus enhances and it th erefore represents bland thrombus. There are anterior abdominal and splenic varices. Retroperitoneum: There is no evidence of retroperitone al mass or adenopathy. Bone marrow: No focal abnormality. Lung bases: The visualized portions of the lungs are f ree of acute disease. Ascites: Large amount of free fluid within the abdomen and pelvis. IMPRESSION: 1. Cirrhosis and portal hypertension with large volume ascites. 2. 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 No suspicious hepatic lesion or tumor thrombus is identified. [id number] Procedure Note Hm Interface, Radiology Results Incoming - 11/10/2019 2:16 PM CAREER COUNSELOR EXAMINATION: MRI ABDOMEN W WO CONTRAST CLINICAL HISTORY: K74.60 Unspecified ci rrhosis of liver, I81 Portal vein thrombosis, CIRRHOSIS TECHNIQUE: Multiplanar multisequence MR images of the abdomen were obtained pre- and post dynamic intravenous administration of Gadolinium. COMPARISON: CT performed on 10/13/2019. FINDINGS: Evaluation is limited secondary to motio n artifact and ascites. Liver: The liver is cirrhotic. No suspic ious hepatic lesion is identified. Spleen: Mild splenomegaly. No focal lesi on. Pancreas: No focal abnormality. Gallbladder and biliary tree: Surgical c hanges related to cholecystectomy. There is no intra or extrahepatic biliary ductal dilatation. There is no evidence of choledocholithiasis. Adrenal glands: No focal abnormality. Kidneys: No renal mass or hydronephrosis . 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 Additionally, there is extension of thrombus into the splenic and superior mesenteric veins. None of this thrombus enhances and it th erefore represents bland thrombus. There are anterior abdominal and splenic varices. Retroperitoneum: There is no evidence of retroperitoneal mass or adenopathy. Bone marrow: No focal abnormality. Lung bases: The visualized portions of t he lungs are free of acute disease. Ascites: Large amount of free fluid with in the abdomen and pelvis. IMPRESSION: 1. Cirrhosis and portal hypertension wit h large volume ascites. 2. 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 No suspicious hepatic lesion or tumor thrombus is identified. [id number] Performing Organization Address [facility]/Zipcode Phone Number [facility] [address] [place] [address] POC creatinine (11/10/2019 10:51 AM CAREER COUNSELOR)Only the most recent of2 resultswithin the time period is included. POC creatinine 0.7 0.5 - 0.9 [facility] Comment: mg/dl HOSPITAL Meter ID: [id number] Machine Grinder ID: Susan Peoples Specimen Blood - Antecubital, left Performing Organization Address [facility]/Zipcode Phone Number [facility] DEPARTMENT OF PATHOLOGY AND [address] [place], [place] [address] GENOMIC MEDICINE [facility] [address] [place] [address] CT Abdomen W Wo Contrast (10/13/2019 10:24 AM CAREER COUNSELOR) Specimen Narrative Performed At EXAMINATION: CT ABDOMEN W WO CONTRAST [facility] CLINICAL HISTORY: K74.60 Unspecified cirrhosis of li albert, cirrhosis of the liver TECHNIQUE: Multiple axial images of the abdomen were o btained before and after intravenous administration of contrast. Sagittal and coronal computerized reformatted images were also obtained. Ra diation dose reduction technique was utilized. COMPARISON: None. IMPRESSION: 1. There is a very large amount of ascites present in the abdomen. Consider paracentesis. 2.Liver is shrunken and nodular, compatible with cirrh osis. The portal vein is thrombosed and dilated. Some thrombus extends into the splenic vein and superior mesenteric vein. The thrombus only m inimally enhances after contrast. I feel that this is most likely bland thrombus, but the slight contrast enhanc ement raises the small possibility of tumor thrombus. MRI with contrast recommended for further evaluation. However, I do not clearly identify a a mass within the liver on this study. 3.There is there are multiple collateral veins in the hilum of the liver. 4.Spleen is enlarged, measuring 16.7 cm in length. 5.Pancreas, adrenals, and kidneys do not demonstrate any masses. 6.There are no enlarged retroperitoneal lymph nodes. 7.There is no intestinal obstruction. 8.Aorta is atherosclerotic. There is no aneurysm. 9.Bones are osteopenic. [id number] Procedure Note Interface, Radiology Results Incoming - 10/13/2019 10:48 AM CAREER COUNSELOR EXAMINATION: CT ABDOMEN W WO CONTRAST CLINICAL HISTORY: K74.60 Unspecified ci rrhosis of liver, cirrhosis of the liver TECHNIQUE: Multiple axial images of the abdomen were obtained before and after intravenous administration of contrast. Sagittal and coronal computerized reformatted images were also obtained. Radiation dose reduction technique was utilized. COMPARISON: None. IMPRESSION: 1. There is a very large amount of ascit es present in the abdomen. Consider paracentesis. 2.Liver is shrunken and nodular, compati ble with cirrhosis. The portal vein is thrombosed and dilated. Some thrombus extends into the splenic vein and superior mesenteric vein. The thrombus only minimally enhances after contrast. I feel that this is most likely bland thrombus, but the slight c ontrast enhancement raises the small possibility of tumor thrombus. MRI with contrast recommended for further evaluation. However, I do not clearly identify a a mass within the liver on this study. 3.There is there are multiple collateral veins in the hilum of the liver. 4.Spleen is enlarged, measuring 16.7 cm in length. 5.Pancreas, adrenals, and kidneys do not demonstrate any masses. 6.There are no enlarged retroperitoneal lymph nodes. 7.There is no intestinal obstruction. 8.Aorta is atherosclerotic. There is no aneurysm. 9.Bones are osteopenic. 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
--- OUTSIDE RECORDS SUMMARY | 2020-02-10 00:19 | XMS REPORT ---
:1945 Author Organization [facility] t Address [address] [place] [address] [address] [place] [address] Care Team Providers Name Role Phone Hosea OLIVEIRA [place] Primary Care Physician Roland OLIVEIRA, P. Attending Clinician Cruz OLIVEIRA, Matias Attending Clinician Hugh OLIVEIRA Attending Clinician Herberth OLIVEIRA, I. Attending Clinician ROLAND Admitting Clinician Unavailable Payers Payer Name Policy Policy Number Effective Expiration Source Type Date Date MEDICAREMEDICARE PART xxxxxxxxxxx 2010 Yunior Alicia AND 00:00:00 [facility] [place]xxxxxxx xxxxxxxxx 1998 Felicitas langley xx1998-PresentMt 00:00:00 Met georges litary Problems Condition Condition Condition Status Onset Resolution Last Treating Co mments Source Name Details Category Date Date Treatment Clinician Date Cirrhosis Cirrhosis Disease Active Felicitas langley 4-04 Method[facility] 00:00: st 00 Allergies, Adverse Reactions, Alerts Allergy Allergy Status Severity Reaction(s) Onset Inactive Treating Comm ents Source Name Type Date Date Clinician Penicill Propensi Active Shortness Of [place] ins ty to Breath, 10-13 [facility] adverse Swelling 00:00: st reaction 00 s to drug Social History Social Habit Start Date Stop Date Quantity Comments Source Sex Assigned At Felicitas Dill Medications Ordered Filled Start Stop Current Ordering Indication Dosage Frequency Signature Comments Components Source Medication Medication Date Date Medication? Clinician (SIG) Name Name pantoprazol No 40mg QD Take 1 Felicitasyaron langley e 12-31-11 tablet (40 Method[facility] (PROTONIX) 00:00: 04:59 mg total) s t 40 MG EC 00 :00 by mouth tablet daily for 30 days. levoFLOXaci 2020-0 2020- No 500mg QD Take 1 Ho tabatha n 12-31- tablet [facility] (LEVAQUIN) 00:00: 04:59 ([address] 500 MG 00 :00 total) by tablet mouth daily for 10 days. furosemide 2020-0 2020- No 80mg QD Take 80 mg Reddy (LASIX) 80 12-30 by mouth Meth erinn mg tablet 19:57: 00:[address] 34 :00 Take at 0900 spironolact 2020-0 2020- No 100mg Q.5D Take 100 Reddy one 12-30 mg by Method[facility] (ALDACTONE) 19:56: 00:[address] 100 MG 27 :00 (two) tablet times a day. propranoloL 2020-0 2020- No 20mg QD Take 20 mg Reddy (INDERAL) 12-30 by mouth Metho di 20 MG 19:51: 00:[address] tablet 12 :00 spironolact 2020-0 Yes 100mg QD Take 1 Felicitasyaron veran one 12-30 tablet [facility] (ALDACTONE) 00:00: ([address] 100 MG 00 total) by tablet mouth daily. hydrocortis 2020-0 2020- No 25mg Q.5D Insert 1 [place] one 12-30 suppositor Method[facility] (ANUSOL-HC) 00:00: 04:59 y (25 mg s t 25 mg 00 :00 total) suppository into the rectum 2 (two) times a day for 30 days. riFAXimin 2020-0 2020- No 550mg Q.5D Take 1 [place] (XIFAXAN) 12-30 tablet Methodi 550 mg 00:00: 04:59 ([address] tablet 00 :00 total) by mouth 2 (two) times a day for 30 days. furosemide 2020-0 2020- No 40mg Q.5D Take 1 [place] (LASIX) 40 12-30 tablet (40 Me thodi mg tablet 00:00: 04:59 mg total) st 00 :00 by mouth 2 (two) times a day for 30 days. vancomycin No 125mg Q.25D Take 2.5 Reddy (FIRVANQ) 12-30 mL (125 mg Met hodi 50 mg/mL 00:00: 04:59 total) by st recon soln 00 :00 mouth 4 oral (four) solution times a day for 12 days. furosemide No 40mg Q.5D Take 0.5 [place] (LASIX) 80 12-30 tablets Metho di mg tablet 00:00: 00:00 ([address] 00 :00 total) by mouth 2 (two) times a day. Take at 0900 Vital Signs Vital Name Observation Time Observation Value Comments Source Systolic blood 2019-12-31 19:00:00 95 mm[Hg] Fuadto n [facility] pressure Diastolic blood 2019-12-31 19:00:00 57 mm[Hg] Dodie on [facility] pressure Heart rate 2019-12-31 19:00:00 96 /min Barry Dill Body temperature 2019-12-31 19:00:00 36.67 Zabrina Fuad ton [facility] Respiratory rate 2019-12-31 19:00:00 20 /min Fuad Dill Oxygen saturation in 2019-12-31 19:00:00 98 /min Barry Dill Arterial blood by Pulse oximetry Body weight 2019-12-28 13:46:00 59.421 kg Barry Dill BMI 2019-12-28 13:46:00 21.14 kg/m2 Barry Dill Body height 2019-12-27 10:08:00 167.6 cm Barry Dill Procedures Procedure Date / Time Performing Clinician Source Performed US ABDOMINAL PARACENTESIS 2019-12-31 19:15:06 Shavonne Foley IMAGING [place] AEROBIC CULTURE 2019-12-31 17:49:00 Shavonne Foley ethodist [place] ANAEROBIC CULTURE 2019-12-31 17:49:00 Shavonne Foley [place] AFB CULTURE 2019-12-31 17:49:00 Shavonne Foley ethodist [place] FUNGUS CULTURE 2019-12-31 17:49:00 Shavonne Foley ethodist [place] AFB STAIN 2019-12-31 17:49:00 Shavonne Foley ethodist [place] FUNGUS SMEAR 2019-12-31 17:49:00 Shavonne Foley ethodist [place] CELL COUNT AND 2019-12-31 17:49:00 Shavonne Foley ethodist DIFFERENTIAL, BODY FLUID [place] ALBUMIN, [facility] FLUID 2019-12-31 17:49:00 Shavonne Foley on Evangelical [place] LDH, MISC FLUID 2019-12-31 17:49:00 Shavonne Foley ethodist [place] GLUCOSE LEVEL, MIS FLUID 2019-12-31 17:49:00 Shavonne Foley [place] PH, [facility] FLUID 2019-12-31 17:49:00 Shavonne Foley ethodist [place] LIPASE LEVEL, [facility] FLUID 2019-12-31 17:49:00 Shavonne Foley [place] TRIGLYCERIDES, MISC FLUID 2019-12-31 17:49:00 Shavonne Foley [place] PROTEIN, MISC FLUID 2019-12-31 17:49:00 Shavonne Foley on Evangelical [place] POC GLUCOSE 2019-12-31 16:45:00 Rigoberto Reese Meth odist POC GLUCOSE 2019-12-31 13:02:00 Rigoberto Reese odist PROTHROMBIN TIME WITH INR 2019-12-31 09:50:00 Shavonne Foley [place] HC COMPLETE BLD COUNT 2019-12-31 09:50:00 Rigoberto Reese [facility] W/AUTO DIFF COMPREHENSIVE METABOLIC 2019-12-31 09:00:00 Rigoberto Reese [facility] PANEL ESTIMATED GFR 2019-12-31 09:00:00 Shavonne Foley ethodist [place] POC GLUCOSE 2019-12-31 01:49:00 Rigoberto Reese Meth odist POC GLUCOSE 2019-12-30 23:26:00 Rigoberto Reese Meth odist POC GLUCOSE 2019-12-30 16:34:00 Rigoberto Reese Meth odist POC GLUCOSE 2019-12-30 13:22:00 Rigoberto Reese Meth odist PROTHROMBIN TIME WITH INR 2019-12-30 10:40:00 Shavonne Foleyist [place] COMPREHENSIVE METABOLIC 2019-12-30 10:40:00 Rigoberto Reese [facility] PANEL HC COMPLETE BLD COUNT 2019-12-30 10:40:00 Rigoberto Reese [facility] W/AUTO DIFF ALPHA FETOPROTEIN 2019-12-30 10:40:00 Herberth Aleksandreleuteriojerri HollisLamin Reddy [facility] ESTIMATED GFR 2019-12-30 10:40:00 EgarniedarlynAleksandrsanjeevdarron Reddy M ethodist POC GLUCOSE 2019-12-30 02:51:00 Rigoberto Reese Meth odist POC GLUCOSE 2019-12-29 23:22:00 Rigoberto Reese Meth odist POC GLUCOSE 2019-12-29 19:30:00 Rigoberto Reese Meth odist POC GLUCOSE 2019-12-29 17:18:00 Rigoberto Reese Meth odist POC GLUCOSE 2019-12-29 13:38:00 Rigoberto Reese Meth odist GASTROINTESTINAL PANEL 2019-12-29 13:14:00 Rigoberto Reese on [facility] POC GLUCOSE 2019-12-29 09:42:00 Rigoberto Reese Meth odist PROTHROMBIN TIME WITH INR 2019-12-29 09:40:00 Shavonne Foley [facility] [place] COMPREHENSIVE METABOLIC 2019-12-29 09:40:00 Rigoberto Reese [facility] PANEL HC COMPLETE BLD COUNT 2019-12-29 09:40:00 Rigoberto Reese [facility] W/AUTO DIFF ESTIMATED GFR 2019-12-29 09:40:00 Rigoberto Reese Meth odist POC GLUCOSE 2019-12-29 06:35:00 Rigoberto Reese Meth odist POC GLUCOSE 2019-12-29 01:42:00 Rigoberto Reese Meth odist POC GLUCOSE 2019-12-28 23:27:00 Rigoberto Reese Meth odist POC GLUCOSE 2019-12-28 16:46:00 Rigoberto Reese Meth odist POC GLUCOSE 2019-12-28 12:50:00 Rigoberto Reese Meth odist HC COMPLETE BLD COUNT 2019-12-28 09:35:00 James Levine [facility] W/AUTO DIFF PARTIAL THROMBOPLASTIN TIME 2019-12-28 09:35:00 James Levine (PTT) FIBRINOGEN 2019-12-28 09:35:00 James Levine odwilliam PROTHROMBIN TIME WITH INR 2019-12-28 09:35:00 James Levine [facility] POC GLUCOSE 2019-12-28 09:35:00 Rigoberto Reese Meth odist BASIC METABOLIC PANEL 2019-12-28 09:00:00 James Levine HEPATIC FUNCTION PANEL 2019-12-28 09:00:00 James Levine on Evangelical MAGNESIUM LEVEL 2019-12-28 09:00:00 James Levine odist PHOSPHORUS LEVEL 2019-12-28 09:00:00 James Levine hodwilliam IONIZED CALCIUM 2019-12-28 09:00:00 James Levine ESTIMATED GFR 2019-12-28 09:00:00 James Levine odist POC GLUCOSE 2019-12-27 20:51:00 Rigoberto Reese odist US ABDOMINAL PARACENTESIS 2019-12-27 19:47:54 James Levine IMAGING HC COMPLETE BLD COUNT 2019-12-27 19:47:00 James Levine [facility] W/AUTO DIFF ANAEROBIC CULTURE 2019-12-27 19:30:00 Rigoberto Reese Ms thodist AEROBIC CULTURE 2019-12-27 19:30:00 Rigoberto Reese Meth odist AFB CULTURE 2019-12-27 19:30:00 Rigoberto Reese odist AFB STAIN 2019-12-27 19:30:00 Rigoberto Reese odist FUNGUS CULTURE 2019-12-27 19:30:00 Rigoberto Reese odist FUNGUS SMEAR 2019-12-27 19:30:00 Rigoberto Reese ALBUMIN, MISC FLUID 2019-12-27 19:30:00 Rigoberto Reese AMYLASE LEVEL, MISC FLUID 2019-12-27 19:30:00 Rigoberto Reese [facility] GLUCOSE LEVEL, MISC FLUID 2019-12-27 19:30:00 Rigoberto Reeseton [facility] LIPASE LEVEL, MISC FLUID 2019-12-27 19:30:00 Rigoberto Reese stoyomi [facility] LDH, MISC FLUID 2019-12-27 19:30:00 Rigoberto Reese Meth odist PH, MISC FLUID 2019-12-27 19:30:00 Rigoberto Reese Meth odist TRIGLYCERIDES, MISC FLUID 2019-12-27 19:30:00 Rigoberto Reese [facility] PROTEIN, MISC FLUID 2019-12-27 19:30:00 Rigoberto Reese [facility] CELL COUNT AND 2019-12-27 19:30:00 Rigoberto Reese odist DIFFERENTIAL, BODY FLUID CREATININE LEVEL, MISC 2019-12-27 19:30:00 Rigoberto Reese on [facility] FLUID BILIRUBIN TOTAL, MISC FLUID 2019-12-27 19:30:00 Rigoberto Reese XR CHEST 1 VW PORTABLE 2019-12-27 17:26:57 James Levine on Evangelical POC GLUCOSE 2019-12-27 16:54:00 Rigoberto Reese Meth odist POC GLUCOSE 2019-12-27 12:43:00 Rigoberto Reese Meth odist URINE CULTURE 2019-12-27 09:28:00 Yunior Arroyolalit Phoenixkendra Reddy Met hodist POC GLUCOSE 2019-12-27 09:25:00 Rigoberto Reese Meth odist BASIC METABOLIC PANEL 2019-12-27 06:58:00 Kimi Anguiano [facility] HEPATIC FUNCTION PANEL 2019-12-27 06:58:00 Kimi Anguiano on Evangelical LACTIC ACID LEVEL 2019-12-27 06:58:00 SunKimi Me thodist PHOSPHORUS LEVEL 2019-12-27 06:58:00 Kimi Anguiano Met hodist MAGNESIUM LEVEL 2019-12-27 06:58:00 Kimi Anguiano odist IONIZED CALCIUM 2019-12-27 06:58:00 Kimi Anguiano odist ESTIMATED GFR 2019-12-27 06:58:00 Kimi Anguiano Meth odist HC COMPLETE BLD COUNT 2019-12-27 06:25:00 Kimi Anguiano [facility] W/AUTO DIFF PROTHROMBIN TIME WITH INR 2019-12-27 06:25:00 Kimi Anguiano [facility] PARTIAL THROMBOPLASTIN TIME 2019-12-27 06:25:00 Kimi Anguiano (PTT) POC GLUCOSE 2019-12-27 06:25:00 Rigoberto Reese Meth odist URINALYSIS SCREEN AND 2019-12-27 04:26:00 CruzErickendra Meridat on [facility] MICROSCOPY, WITH REFLEX TO CULTURE BLOOD CULTURE, AEROBIC & 2019-12-27 03:15:00 Arroyo Eric Matias mays [facility] ANAEROBIC XR HIP 3-4 VIEWS BILATERAL 2019-12-27 03:14:27 Arroyo, Eric Salcedo Barry [facility] XR PELVIS 3+ VW 2019-12-27 03:14:16 Eric Arroyo Met hodist XR ABDOMEN 1 VW PORTABLE 2019-12-27 03:14:04 Gerry Schwartz stoyomi [facility] XR CHEST 1 VW PORTABLE 2019-12-27 03:13:52 Gerry Schwartz on [facility] BLOOD CULTURE, AEROBIC & 2019-12-27 03:00:00 Arroyo, Eric Phoenixkendra mays [facility] ANAEROBIC POC GLUCOSE 2019-12-27 01:11:00 Cb Watkins Met hodist PROTHROMBIN TIME WITH INR 2019-12-27 01:08:00 Kimi Anguiano [facility] PARTIAL THROMBOPLASTIN TIME 2019-12-27 01:08:00 Kimi Anguiano (PTT) HC COMPLETE BLD COUNT 2019-12-27 01:08:00 Kimi Anguiano [facility] W/AUTO DIFF IONIZED CALCIUM 2019-12-27 01:08:00 Kimi Anguiano odist PHOSPHORUS LEVEL 2019-12-27 01:08:00 Kimi Anguiano Met hodist MAGNESIUM LEVEL 2019-12-27 01:08:00 Kimi Anguiano Meth odist LACTIC ACID LEVEL 2019-12-27 01:08:00 Kimi Anguiano Me thodist TYPE AND SCREEN 2019-12-27 01:08:00 Kimi Anguiano Meth odist BASIC METABOLIC PANEL 2019-12-27 01:08:00 Kimi Anguiano [facility] HEPATIC FUNCTION PANEL 2019-12-27 01:08:00 Kimi Anguiano on Evangelical ESTIMATED GFR 2019-12-27 01:08:00 Kimi Anguiano Buzz Barry Bell odwilliam MRI ABDOMEN W WO CONTRAST 2019-11-10 17:40:59 EgwiNeena santizo [facility] POC CREATININE 2019-11-10 16:51:00 SoTad de la rosa odist Christopher ESTIMATED GFR 2019-11-10 16:51:00 Tad Curran Reddy Arabella odwilliam Christopher CT ABDOMEN W WO CONTRAST 2019-10-13 16:24:31 EgwiNeena santizo [facility] POC CREATININE 2019-10-13 15:57:00 Kaleb Scottist ESTIMATED GFR 2019-10-13 15:57:00 Kaleb Scott Plan of Care Planned Activity Planned Date Details Comments Source Future Scheduled 2020-04-23 INFLUENZA VACCINE Germán celaya [facility] Test 00:00:00 [code = INFLUENZA VACCINE] Future Scheduled 2010 65+ PNEUMOCOCCAL [place] [facility] Test 00:00:00 VACCINE (1 of 2 - PCV13) [code = 65+ PNEUMOCOCCAL VACCINE (1 of 2 - PCV13)] Future Scheduled 1995 BREAST CANCER [facility] thodist Test 00:00:00 SCREENING [code = BREAST CANCER SCREENING] Future Scheduled 1995 COLONOSCOPY SCREENING [facility] Test 00:00:00 [code = COLONOSCOPY SCREENING] Future Scheduled 1995 SHINGLES VACCINES (#1) adiel [facility] Test 00:00:00 [code = SHINGLES VACCINES (#1)] Encounters Start End Encounter Admission Attending Care Care Encounter Source Date/Time Date/Time Type Type Clinicians Facility Department ID 2020-02-02 2020-02-02 Outpatient [id number] [facility] 07:35:00 07:35:00 2019-12-26 2019-12-31 [id number] [place] 00:00:00 00:00:00 RIGOBERTO [address] 2019-12-02 2019-12-02 Outpatient [id number] [facility] 11:50:00 11:50:00 2019-11-09 2019-11-09 Outpatient [id number] [facility] 12:34:00 12:34:00 2019-10-29 2019-10-29 Outpatient [facility] [id number] [facility] 07:45:00 07:45:00 Results Test Description Test Time Test Comments Results Result Comments Source AFB culture 2020-02-08 05:13:28 Test Item Value Reference Range Interpretation Comme nts AFB culture isolate No growth after 6 weeks of Specimen InformationSpecimen (test code = 543-9) incubation. Source: Paracentesis fluidSpecimen S ite: Not otherwise specified Barry DillFungus [id number] 05:15:12 Test Item Value Reference Range Interpretation Comments Fungus culture No growth Specimen isolate (test after 4 weeks InformationSp ecimen code = 1441) of Source: Periton eal incubation. fluidSpecimen S ite: Peritoneal Barry Larose Abdominal Paracentesis [id number] 19:33:29Hm Interface, Radiology Results 01/04/2020 2:36 PM CDTPROCEDURE:Ultrasound-guided paracentesisPerforming Radiologist: Joseline Quintero PA-C Assistants:None Pre Procedure Diagnosis:ASCITESPost Procedure Diagnosis:ASCITESIndication:AscitesComplications:No immediate post procedure complications.IMPRESSION:1.Technically successful ultrasound-guided diagnostic/therapeutic paracentesis.2.There is a large simple ascites.3.Large residual ascites is seen on postprocedure ultrasound.PLAN:The patient will be monitored in the recovery area for approximately 30 minutes to evaluate vital signs and blood pressure. ---PROCEDURE SUMMARY:Access of the peritoneal space using ultrasound guidancePROCEDURE DETAILS:Pre-procedure:Comparison studies: NoneWritten and informed consent for the procedure and monitored conscious sedation was obtained from the patient.Prophylactic antibiotics: NonePreparation: The right lower quadrant of the abdomen was prepared and draped using all elements of maximal sterile barrier technique including sterile gloves, sterile gown, catheter, mask, large sterile sheet, sterile ultrasound probe cover, hand hygiene and cutaneous antisepsis using chlorhexidine.Anesthesia/Sedation:Level of anesthesia: None (Lidocaine only)Medications used: 1% lidocaineDuration of anesthesia/sedation: N/AAccess:Local anesthesia was administered. The right lower quadrant was evaluated with preprocedure ultrasound. Real-time ultrasound was used to visualize needle entry into the peritoneal space. Access technique:One-step CatheterParacentesis:Fluid Color: YellowVolume Removed: 5000 mLFluid Analysis: The fluid was sent for laboratory tests ordered by the primary teamClosure:The One-step catheter was removed and hemostasis was achieved with manual compression. A sterile dressing was applied.Additional details:Estimated blood loss: Less than 10 [facility]-[id number] MethodistAnaerobic culture 2020-01-04 13:11:32 Test Item Value Reference Range Interpretation Comments Anaerobic No anaerobic Specimen culture isolate organisms InformationS pecimen (test code = isolated. Source: Periton eal 552) fluidSpecimen S ite: Peritoneal Barry MethodistAerobic [id number] 22:14:00 Test Item Value Reference Range Interpretation Comments Aerobic culture No growth Specimen isolate (test after 3 days. InformationSp ecimen code = 498) Source: Periton eal fluidSpecimen S ite: Peritoneal Barry MethodistFungus [id number] 20:21:06 Test Item Value Reference Range Interpretation Comments Fungus smear No fungi Specimen (test code = observed. InformationSpec imen Source: 1443) Peritoneal flui dSpecimen Site: Peritonea l Barry MethodistAFB [id number] 19:30:39 Test Item Value Reference Range Interpretation Comments AFB stain No acid fast Specimen (test code = bacilli (AFB) InformationSpe [facility] 6[facility]-7) seen. Source: Periton eal fluidSpecimen S ite: Peritoneal Barry MethodistBlood culture, aerobic & [id number] 07:03:06 Test Item Value Reference Range Interpretation Comments Blood culture No growth Specimen isolate (test after 5 days InformationSpe cimen code = 600-7) of Source: BloodS pecimen incubation. Site: Antecubit al Right [place] MethodistGram [id number] 03:26:46Gram stain isolateFew WBC'sNo organisms seen Comment: Specimen InformationSpecimen Source: Peritoneal fluidSpecimen Site: Peritoneal [facility] MethodistpH, [facility] [id number] 01:34:49 Test Item Value Reference Range Interpretation Comments Fluid type (test Peritoneal code = 36320-8) pH, fluid (test 8.00 Reference ra nges are not code = 2748-2) established f or Miscellanous sp ecimens. [facility] count and differential, body [id number] 22:29:17 Test Item Value Reference Range Interpretation Comments [facility] fluid type (test Ascitic code = 89417-5) Color, fluid (test code Yellow = 6824-7) Appearance, fluid (test Clear code = 9335-1) RBC, fluid (test code = SEE COMMENT /CMM 2+ ( 500 - 10,000 80672-9) RBC/CMM) Nucleated cells, fluid 159 /CMM (test code = 83518-9) Fluid mononuclear cell See Diff (test code = 1407) Neutrophils, fluid 2 % (test code = 17271-7) Lymphocytes, fluid 56 % (test code = 62037-5) Mesothelial cells, 1 % fluid (test code = 62919-5) Macrophages, fluid 41 % (test code = 29074-6) [place] [facility], [facility] [id number] 21:34:22 Test Item Value Reference Range Interpretation Comments Fluid type (test Peritoneal code = 77598-0) Albumin, fluid 0.8 g/dL The reference interval(s) (test code = and other metho d 1747-5) performance spe cifications have not been e stablished for this body f luid. The test results mu st be integrated into the clinical contex t for interpretation. This test has been modifi ed from the manufacturers instructions. The performance characteristics were determined by Kendra paulino in a manner consiste nt with CLIA requiremen ts. This test has not be en cleared or approved by the U.S. Food and Drug Administration. Barry DillGlucose level, [facility] [id number] 21:34:22 Test Item Value Reference Range Interpretation Comments Fluid type (test Peritoneal code = 89816-8) Glucose, fluid 196 mg/dL The reference interval(s) (test code = and other metho d 2344-0) performance spe cifications have not been e stablished for this body f luid. The test results mu st be integrated into the clinical contex t for interpretation. This test has been modifi ed from the manufacturers instructions. The performance characteristics were determined by Kendra paulino in a manner consiste nt with CLIA requiremen ts. This test has not be en cleared or approved by the U.S. Food and Drug Administration. Barry DillLDH, [facility] [id number] 21:34:22 Test Item Value Reference Range Interpretation Comments Fluid type (test Peritoneal code = 99047-6) LDH, fluid (test 47 U/L The referen ce interval(s) code = 97062-7) and other me thod performance spe cifications have not been e stablished for this body f luid. The test results mu st be integrated into the clinical contex t for interpretation. This test has been modifi ed from the manufacturers instructions. The performance characteristics were determined by Kendra paulino in a manner consiste nt with CLIA requiremen ts. This test has not be en cleared or approved by the U.S. Food and Drug Administration. Barry Fitch, [facility] [id number] 21:34:22 Test Item Value Reference Range Interpretation Comments Fluid type (test Peritoneal code = 72740-7) Protein, fluid 1.8 g/dL The reference interval(s) (test code = and other metho d 2881-1) performance spe cifications have not been e stablished for this body f luid. The test results mu st be integrated into the clinical contex t for interpretation. This test has been modifi ed from the manufacturers instructions. The performance characteristics were determined by Kendra paulino in a manner consiste nt with CLIA requiremen ts. This test has not be en cleared or approved by the U.S. Food and Drug Administration. Barry ChristianistTriglycerides, [facility] [id number] 21:34:22 Test Item Value Reference Range Interpretation Comments Fluid type (test Peritoneal code = 15065-8) Triglyceride, 29 mg/dL The reference interval(s) fluid (test code and other m ethod = 48181-6) performance spe cifications have not been e stablished for this body f luid. The test results mu st be integrated into the clinical contex t for interpretation. This test has been modifi ed from the manufacturers instructions. The performance characteristics were determined by Kendra paulino in a manner consiste nt with CLIA requiremen ts. This test has not be en cleared or approved by the U.S. Food and Drug Administration. Barry ChristianistLipase level, [facility] [id number] 21:34:22 Test Item Value Reference Range Interpretation Comments Fluid type (test Peritoneal code = 12626-4) Lipase, fluid 7 U/L The reference interval(s) (test code = and other metho d 12694-2) performance spe cifications have not been e stablished for this body f luid. The test results mu st be integrated into the clinical contex t for interpretation. This test has been modifi ed from the manufacturers instructions. The performance characteristics were determined by Kendra paulino in a manner consiste nt with CLIA requiremen ts. This test has not be en cleared or approved by the U.S. Food and Drug Administration. 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 Interpretation (test Abnormal code = 27882-4) Barry DillComprehensive metabolic [id number] 11:13:41 Test Item Value Reference Range Interpretation Comments Sodium (test code = 129 135- 148 mEq/L L 2951-2) Potassium (test code = 3.8 3.5- 5.0 mEq/L 2823-3) Chloride (test code = 101 98- 112 mEq/L 2074-0) CO2 (test code = 2027-) 18 24- 31 mEq/L L Anion gap (test code = 10@ANIO 7- 15 mEq/L 68574-8) BUN (test code = 3094-0) 13 mg/dL 8-23 Creatinine (test code = 0.62 mg/dL 0.5-0.9 2160-0) Glucose (test code = 145 mg/dL 65-99 H 2345-7) Calcium (test code = 8.8 mg/dL 8.8-10.2 66713-1) Protein (test code = 6.4 g/dL 6.3-8.3 -[place] n 2885-2) 4.6-7.0 g/dL1 week 4.4-7 .6 g/dL7 months-1y ear 5.1-7 .3 g/dL1-2 years 5.6-7 .5 g/dL>3 years 6.0-8 .0 g/kE49-587 6.3-8 .3 g/dL Albumin (test code = 2.5 g/dL 3.5-5 L 1751-7) A/G ratio (test code = 0.6 0.7-3.8 L 1759-0) Alkaline phosphatase 121 U/L 35-104 H (test code = 6768-6) AST (test code = 1920-8) 26 U/L 10-35 ALT (test code = 1742-6) 11 U/L 5-50 Total bilirubin (test 0.8 mg/dL 0-1.2 code = 1974-2) Lab Interpretation (test Abnormal code = 38795-8) [facility]on MethodistEstimated [id number] 11:13:40 Test Item Value Reference Range Interpretation Comments Estimated GFR (test 89 mL/min/1.73 m2 Caterg ory Units code = 5488) InterpretationG 1 >=90 Normal or highG2 60-89 Mildly iczgqknepE9u 45-59 Mildly to mode rately itrzxwpxlV9w 30-44 Moderately to severely decreasedG4 15-29 Severely decre asedG5 <15 Kidn ey failureThe eGFR was calculated taiwo milligan the Chronic Kidney Disease Epidemiology Co llaboration (CKD-EPI) equat ion. Interpretation is based on recommendations of the National Kidney Foundation-Kidn ey Disease Outcomes Qualit y Initiative (NKF-KDOQI) pub lished in 2014. Reddy MethodistProthrombin time with [id number] 11:01:23 Test Item Value Reference Range Interpretation Comments Prothrombin time (test 17.9 11.5- 14.5 sec H code = 5902-2) INR (test code = 1.5 The Interna tional 47184-2) Normalized Rati o (INR) is a therapeuti c monitoring tool for patients who ar e stable on oral anticoagulant t herapy. An INR of 2.0-3 .0 is suggested for d eep vein thrombosis/pulm onary embolism. Lab Interpretation Abnormal (test code = 84211-4) Reddy MethodistCBC with platelet and [id number] 10:51:22 Test Item Value Reference Range Interpretation Comments WBC (test code = 91245-6) 2.87 4.50- 11.00 k/uL L RBC (test code = 20090-0) 3.90 m/uL 4.2-5.5 L HGB (test code = 718-7) 9.0 g/dL 12-16 L HCT (test code = 4544-3) 30.1 % 37-47 L MCV (test code = 787-2) 77.2 fL 82-100 L MCH (test code = 785-6) 23.1 pg 27-34 L MCHC (test code = 786-4) 29.9 g/dL 31-37 L RDW - SD (test code = 55.5 fL 37-55 H 74072-5) MPV (test code = 16754-6) 10.2 fL 8.8-13.2 Platelet count (test code 100 150- 400 k/uL L = 79036-7) Nucleated RBC (test code 0.00 /100 WBC = 60868-0) Neutrophils (test code = 67.0 % 39-69 49926-6) Lymphocytes (test code = 15.3 % 25-45 L 54738-9) Monocytes (test code = 13.6 % 0-10 H 13633-7) Eosinophils (test code = 3.5 % 0-5 74737-5) Basophils (test code = 0.3 % 0-1 83128-4) Immature granulocytes 0.3 % 0-1 "Immat ure (test code = 34470-8) granul ocytes" (promyelocytes, myelocytes, metamyelocytes) Lab Interpretation (test Abnormal code = 19444-3) Reddy MethodistAlpha [id number] 12:15:46 Test Item Value Reference Range Interpretation Comments Alpha fetoprotein 1.9 ng/mL 0-8.3 The Ed 8000 AFP (test code = immunoassay was used. 44303-4) Results obtaine d with different assay methods or kits should not be used interchang eably and may be differen t. Barry MethodistGastrointestinal [id number] 18:29:29 Test Item Value Reference Interpretation Comments Range Adenovirus 40/41 PCR Not Detected Specime n (test code = 7113) Informati onSpecimen Source: StoolSp ecimen Site: Nonpreser rafita Astrovirus PCR (test Not Detected code = 4790) Campylobacter PCR Not Detected (test code = 7114) Clostridioides Detected A difficile PCR (test code = 7115) Cryptosporidium PCR Not Detected (test code = 7116) Cyclospora Not Detected cayetanensis PCR (test code = 7117) Enteroaggregative E Not Detected coli PCR (test code = 4784) Entamoeba histolytica Not Detected PCR (test code = 7118) Enteroinvasive E coli Not Detected PCR (test code = 4788) Enteropathogenic E Not Detected coli PCR (test code = 4785) Norovirus PCR (test Not Detected code = 7119) Plesiomonas Not Detected shigelloides PCR (test code = 4782) Rotavirus PCR (test Not Detected code = 6813603) Salmonella PCR (test Not Detected code = 4783) Sapovirus PCR (test Not Detected code = 4791) Enterotoxigenic E Not Detected coli PCR (test code = 4786) Shigatoxin producing Not Detected E coli PCR (test code = 4787) E coli O157 PCR (test Not Detected code = 7120) Vibrio PCR (test code Not Detected = 7121) Vibrio cholerae PCR Not Detected (test code = 7122) Yersinia Not Detected enterocolitica PCR (test code = 7123) Giardia lamblia PCR Positive for A (test code = 7124) C. difficile toxin-------- -- Lab Interpretation Abnormal (test code = 35709-9) Elverson IdjywliyyYchcfyzpik6918-65-29 12:29:36 Test Item Value Reference Range Interpretation Comments Fibrinogen (test code = 84738-0) 337 mg/dL 200-450 El[facility]on MethodistIonized [id number] 12:14:24 Test Item Value Reference Range Interpretation Comments pH (test code = 2753-2) 7.52 Ionized calcium (test code = 1.14 mmol/L 1.11-1.32 ) Elverson MethodistBasic metabolic [id number] 12:04:06 Test Item Value Reference Range Interpretation Comments Sodium (test code = 2951-2) 134 135- 148 mEq/L L Potassium (test code = 2823-3) 4.4 3.5- 5.0 mEq/L Chloride (test code = 2075-0) 100 98- 112 mEq/L CO2 (test code = 2027-9) 20 24- 31 mEq/L L Anion gap (test code = 28626-2) 14@ANIO 7- 15 mEq/L BUN (test code = 3094-0) 27 mg/dL 8-23 H Creatinine (test code = 2160-0) 1.06 mg/dL 0.5-0.9 H Glucose (test code = 2345-7) 89 mg/dL 65-99 Calcium (test code = 42576-2) 8.8 mg/dL 8.8-10.2 Lab Interpretation (test code = Abnormal 85104-2) Elverson MethodistHepatic function [id number] 12:04:05 Test Item Value Reference Range Interpretation Comments Albumin (test code = 2.8 g/dL 3.5-5 L 1751-7) Total bilirubin (test 1.2 mg/dL 0-1.2 code = 1974-2) Bilirubin direct (test 0.3 mg/dL 0-0.3 code = 1967-7) Alkaline phosphatase 118 U/L 35-104 H (test code = 6768-6) Protein (test code = 6.4 g/dL 6.3-8.3 -[place] n 2885-2) 4.6-7.0 g /dL1 week 4.4-7.6 g/dL 7 months-1year 5.1-7.3 g/dL 1-2 years 5.6-7.5 g/dL>3 years 6.0-8.0 g/iK80-581 6.3-8. 3 g/dL ALT (test code = 1742-6) 10 U/L 5-50 AST (test code = 1920-8) 26 U/L 10-35 Lab Interpretation (test Abnormal code = 13247-3) Reddy MethodistMagnesium [id number] 12:04:05 Test Item Value Reference Range Interpretation Comments Magnesium (test code = 31321-0) 1.8 mg/dL 1.6-2.4 El[facility]on MethodistPhosphorus [id number] 12:04:02 Test Item Value Reference Range Interpretation Comments Phosphorus (test code = 2777-1) 3.4 mg/dL 2.4-4.5 Reddy EvangelicalPartial thromboplastin time, [id number] 11:55:12 Test Item Value Reference Range Interpretation Comments PTT (test code = 39.6 23.0- 36.0 sec H PTT thera peutic range 36047-8) for unfractiona attila heparin is61.0- 112.0 seconds which corresponds to Anti-Xa0.3-0.7 U/ml. Lab Interpretation Abnormal (test code = 25067-8) Reddy MethodistCreatinine level, [facility] [id number] 21:54:25 Test Item Value Reference Range Interpretation Comments Fluid type (test Paracentesis code = 48778-6) Creatinine, 1.2 mg/dL The reference i nterval(s) fluid (test code and other m ethod = 91274-0) performance specifications have not been establishe d for this body fluid. The test results must be integrated into the clinical contex t for interpretation. This test has been modifi ed from the manufacture rs instructions. The performance characteristics were determined by Kendra paulino in a manner consiste nt with THOMAS deleon. This test has not be en cleared or approved by the U.S. Food and Drug Administration. LESLI (test code = PARACENTESIS LESLI) Reddy MethodistAmylase level, [facility] [id number] 21:54:25 Test Item Value Reference Range Interpretation Comments Fluid type (test Paracentesis code = 88661-2) Amylase, fluid 15 U/L The reference interval(s) (test code = and other metho d 1795-4) performance specifications have not been establishe d for this body fluid. The test results must be integrated into the clinical contex t for interpretation. This test has been modifi ed from the manufacture rs instructions. The performance characteristics were determined by Kendra paulino in a manner consiste nt with CLIA requiremen ts. This test has not be en cleared or approved by the U.S. Food and Drug Administration. LESLI (test code = PARACENTESIS LESLI) Barry MethodistBilirubin total, misc [id number] 21:54:24 Test Item Value Reference Range Interpretation Comments Fluid type (test Paracentesis code = 05611-4) Bilirubin total, 0.4 mg/dL The referen ce fluid (test code = interval( s) and other 1973-5) method performa nce specifications have not been establishe d for this body fluid . The test results mu st be integrated into the clinical contex t for interpretation. This test has been m odified from the [facility] cturers instructions. The performance characteristics were determined by Kendra paulino in a manner consiste nt with CLIA requiremen ts. This test has n ot been cleared or appr andi by the U.S. Food a nd Drug Administration. LESLI (test code = PARACENTESIS LESLI) Reddy MethodistXR Chest 1 Vw [id number] 17:29:54Hm Interface, Radiology Results - 12/27/2019 12:32 PM CDTEXAMINATION: XR CHEST 1 VW PORTABLECLINICAL HISTORY: ICU pt stable with no clinical status changesCOMPARISON: Most Recent Prior at HIMPRESSION:Hypoventilation with stable cardiomegaly and basilar atelectasis. Small right effusion may be present. No pneumothorax. [facility] MethodistUrinalysis screen and microscopy, with reflex to [id number] 11:22:38 Test Item Value Reference Range Interpretation Comments Specimen site (test code = Clean catch 9956095) Color, UA (test code = 5778-6) Camila Appearance, UA (test code = Cloudy 5767-9) Specific gravity, UA (test code = 1.018 1.001-1.035 5811-5) pH, UA (test code = 5803-2) 5.0 5.0-8.5 Protein, UA (test code = 53079-6) Negative Negative Glucose, UA (test code = 53703-2) Negative Negative Ketones, UA (test code = 2514-8) Negative Negative Bilirubin, UA (test code = Negative Negative 5770-3) Blood, UA (test code = 5794-3) Small Negative A Nitrite, UA (test code = 5802-4) Negative Negative Urobilinogen, UA (test code = 2.0 <2.0 A 04529-3) Leukocyte esterase, UA (test code Moderate Negative A = 5799-2) Epithelial cells, UA (test code = 1 /HPF 5787-7) WBC, UA (test code = 5821-4) 116 0- 4 /HPF H RBC, UA (test code = 53509-7) 6 0- 5 /HPF H Bacteria, UA (test code = Many None seen A 55566-4) WBC clumps, UA (test code = Many A 22481-1) Yeast, UA (test code = 27364-9) None seen Yeast with pseudohyphae, UA (test None seen code = 32712-0) Hyaline casts, UA (test code = 17 /LPF 5796-8) Lab Interpretation (test code = Abnormal 96391-5) Elverson MethodistLactic acid [id number] 07:25:24 Test Item Value Reference Range Interpretation Comments Lactic acid (test code = 39065-7) 1.4 mmol/L 0.5-2.2 Elverson MethodistXR Pelvis 3+ [id number] 03:21:20Hm Interface, Radiology Results - 12/26/2019 10:24 PM CDTEXAMINATION: XR HIP 3-4 VIEWS BILAT ERAL, XR PELVIS 3 VWCLINICAL HISTORY: s p fall and hip pain outside report pelvic fractureCOMPARISON: Same-day abdomen radiographIMPRESSION:1. Evaluation is limited due to poor penetration. Comminuted mildly impacted fracture of the right superior pubic ramus suggested and extending to the pubic body. Femoral heads are seated well within the acetabula with mild bilateral hip joint osteoarthritis.Mild bilateral sacroiliac joint osteoarthrosis.Barry Dill XR Hip 3-4 Views [id number] 03:21:20Hm Interface, Radiology Results 12/26/2019 10:24 PM CDTEXAMINATION: XR HIP 3-4 VIEWS BILATERAL, XR PELVIS 3 VWCLINICAL HISTORY: s p fall and hip pain outside report pelvic fractureCOMPARISON: Same-day abdomen radiographIMPRESSION:1. Evaluation is limited due to poor penetration. Comminuted mildly impacted fracture of the right superior pubic ramus suggested and extending to the pubic body. Femoral heads are seated well within the acetabula with mild bilateral hip joint osteoarthritis.Mild bilateral sacroiliac joint osteoarthrosis.Barry Dill XR Abdomen 1 Vw [id number] 03:19:55Hm Interface, Radiology Results 12/26/2019 10:22 PM CDTEXAMINATION: XR ABDOMEN 1 VW PORTABLECLINICAL HISTORY: Abd pain unspecified, Abd swelling ascites suspectedCOMPARISON: None.IMPRESSION:The bowel gas pattern is nonspecific. Stool and air are seen throughout the colon.The abdomen appears distended with somewhat centralized bowel, suggesting ascites.Cholecystectomy clips project over the right upper quadrant.No acute osseous abnormality is seen.[facility]-[id number] Evangelical Type and [id number] 02:55:00 Test Item Value Reference Range Interpretation Comments ABO grouping (test code = 883-9) A Rh type (test code = 80217-2) POS Antibody screen (gel) (test code = NEG 890-4) Barry Dill
[2020-02-10 01:32] LABS: Absolute Lymphocytes (CBC) 1.1 K/uL (0.7-4.9); Basophils % 1.3 % (0-1.3); Hematocrit 32.2 % (36.0-45.0); Lymphocytes % 26.2 % (15.3-44.8); MPV 8.4 fL (7.6-11.3); RBC Red Blood Cell Count 4.27 M/uL (3.86-4.86)
[2020-02-10 01:37] LABS: Protime INR 1.23
[2020-02-10 01:47] LABS: ALT/SGPT 20 U/L (12-78); AST/SGOT 26 U/L (15-37); Albumin 2.6 g/dL (3.4-5.0); Alkaline Phosphatase 196 U/L (45-117); BUN Blood Urea Nitrogen 26 mg/dL (7-18); Bicarbonate 24 mmol/L (21-32); Bilirubin Direct 0.3 mg/dL (0-0.2); Bilirubin Total 0.7 mg/dL (0.2-1.0); Glucose Level 185 mg/dL (74-106); Magnesium 1.7 mg/dL (1.8-2.4); NT PRO-BNP 182 pg/mL (<125); Potassium 4.5 mmol/L (3.5-5.1); Protein, Total 6.9 g/dL (6.4-8.2); Sodium Level 126 mmol/L (136-145); Troponin (Emerg Dept Use Only) < 0.02 ng/mL (0.0-0.045)
[2020-02-10 02:33] LABS: Urine Appearance TURBID; Urine Bilirubin NEGATIVE (NEG); Urine Blood 1+ (NEG); Urine Color DK YELLOW; Urine Glucose NEGATIVE (NEG); Urine Protein TRACE (NEG); Urine Urobilinogen 0.2 mg/dL (0.2-1.0)
[2020-02-10 02:46] LABS: Anisocytosis 1+; Blood Morphology Comment NOTED (NOT SEEN); Platelet Estimate ADEQ; Urine White Blood Cell Casts OK
[2020-02-10 02:51] LABS: Urine Culture Reflex Order REFLEXED
[2020-02-10 02:52] LABS: Urine Bacteria 20-50 /HPF (<20)
[2020-02-10 02:54] LABS: Urine RBC <5 /HPF (NONE SEEN); Urine Yeast FEW (NONE SEEN)
--- NOTE | 2020-02-10 04:20 | EDPHYS ---
Physician Documentation [facility] Name: Nola Quijano Age: 74 yrs Sex: Female : 1945 Arrival Date: 02/10/2020 Time: 00:12 Bed 4 Private MD: ED Physician Jasper Cueva HPI: 02/09 06:50 This 74 yrs old Female presents to ER via Wheelchair with complaints of tw4 Shortness Of Breath, Panic Attack. 06:50 The patient has shortness of breath at rest. Onset: The symptoms/episode began/occurred tw4 today. Duration: The symptoms are intermittent. The patient's shortness of breath has no apparent modifying factors. Associated signs and symptoms: The patient has no apparent associated signs or symptoms. The patient has not experienced similar symptoms in the past. Historical: - Allergies: 00:32 PENICILLINS; vc - Home Meds: 00:32 Levemir FlexTouch 100 unit/mL (3 mL) subcutaneous inpn 30 units nightly [Active]; Lasix vc 40 mg Oral tab 1 tab once daily [Active]; propranolol 20 mg Oral tab 1 tab daily [Active]; spironolactone 50 mg Oral tab 1 tab 2 times per day [Active]; - PMHx: 00:32 Diabetes - NIDDM; Hypertension; Cirrhosis; vc - PSHx: 00:32 Hysterectomy; Cholecystectomy; Paracentesis (weekly); vc - Immunization history:: Adult Immunizations up to date, Pneumococcal vaccine is up to date, Flu vaccine is up to date. - Social history:: Smoking status: Patient denies any tobacco usage or history of. ROS: 06:50 Constitutional: Negative for fever, chills, and weight loss, Eyes: Negative for injury, tw4 pain, redness, and discharge, Cardiovascular: Negative for chest pain, palpitations, and edema, Abdomen/GI: Negative for abdominal pain, nausea, vomiting, diarrhea, and constipation. 06:50 MS/Extremity: Negative for injury and deformity, Skin: Negative for injury, rash, and discoloration, Neuro: Negative for headache, weakness, numbness, tingling, and seizure. 06:50 Respiratory: Positive for shortness of breath, Negative for cough, dyspnea on exertion, hemoptysis, orthopnea, pleurisy, shortness of breath, sputum production. Exam: 06:50 Constitutional: This is a well developed, well nourished patient who is awake, alert, tw4 and in no acute distress. Head/Face: Normocephalic, atraumatic. Chest/axilla: Normal chest wall appearance and motion. Nontender with no deformity. No lesions are appreciated. Cardiovascular: Regular rate and rhythm with a normal S1 and S2. No gallops, murmurs, or rubs. Normal PMI, no JVD. No pulse deficits. Respiratory: Lungs have equal breath sounds bilaterally, clear to auscultation and percussion. No rales, rhonchi or wheezes noted. No increased work of breathing, no retractions or nasal flaring. Abdomen/GI: Soft, non-tender, with normal bowel sounds. No distension or tympany. No guarding or rebound. No evidence of tenderness throughout. MS/ Extremity: Pulses equal, no cyanosis. Neurovascular intact. Full, normal range of motion. Neuro: Awake and alert, GCS 15, oriented to person, place, time, and situation. Cranial nerves II-XII grossly intact. Motor strength 5/5 in all extremities. Sensory grossly intact. Cerebellar exam normal. Normal gait. Vital Signs: 00:21 BP 86 / 60; Pulse 75; Resp 15; Temp 97.7(O); Pulse Ox 100% on R/A; Weight 40.82 kg; vc Height 5 ft. 6 in. (167.64 cm); Pain 0/10; 01:43 BP 88 / 63; Pulse 73; Resp 18 S; Pulse Ox 100% on R/A; jd3 02:27 BP 90 / 65; Pulse 71; Resp 19 S; Pulse Ox 100% on R/A; jd3 03:12 BP 93 / 63; Pulse 73; Resp 18 S; Pulse Ox 99% on R/A; jd3 04:03 BP 95 / 66; Pulse 78; Resp 17 S; Pulse Ox 99% on R/A; jd3 05:20 BP 97 / 64; Pulse 73; Resp 17 S; Pulse Ox 99% on R/A; jd3 00:21 Body Mass Index 14.53 (40.82 kg, 167.64 cm) vc MDM: 00:54 Patient medically screened. tw4 06:50 Antibiotic administration: Not indicated. Data reviewed:. Data interpreted: Pulse tw4 oximetry: Interpretation: normal. Counseling: I had a detailed discussion with the patient and/or guardian regarding: the historical points, exam findings, and any diagnostic results supporting the discharge/admit diagnosis, lab results, radiology results. Physician consultation: Sammy Graves MD regarding admission, to the telemetry unit. patient's condition, and will see patient in inpatient room. 02/09 00:31 Order name: Basic Metabolic Panel; Complete Time: 02:59 tw4 02/09 00:31 Order name: CBC with Diff; Complete Time: 02:59 4 02/09 00:31 Order name: LFT's; Complete Time: 02:59 tw4 02/09 00:31 Order name: Magnesium; Complete Time: 02:59 tw4 02/09 00:31 Order name: NT PRO-BNP; Complete Time: 02:59 4 02/09 00:31 Order name: PT-INR; Complete Time: 02:59 tw4 02/09 00:31 Order name: Troponin (emerg Dept Use Only); Complete Time: 02:59 tw4 02/09 00:31 Order name: AMMONIA; Complete Time: 02:59 4 02/09 00:31 Order name: Lactate; Complete Time: 02:59 tw4 02/09 01:34 Order name: CBC Smear Scan; Complete Time: 02:59 EDMS 02/09 02:30 Order name: Urinalysis W/Microscopic; Complete Time: 02:59 EDMS 02/09 02:56 Order name: Urine Culture EDMS 02/09 03:01 Order name: Troponin (emerg Dept Use Only); Complete Time: 04:14 tw4 02/09 00:31 Order name: XRAY Chest (1 view) 02/09 00:31 Order name: EKG; Complete Time: 00:32 4 02/09 00:31 Order name: Cardiac monitoring; Complete Time: 01:37 02/09 00:31 Order name: EKG - Nurse/Tech; Complete Time: 01:37 4 02/09 00:31 Order name: IV Saline Lock; Complete Time: 01:21 4 02/09 00:31 Order name: Labs collected and sent; Complete Time: 01:37 02/09 00:31 Order name: O2 Per Protocol; Complete Time: 01:37 02/09 00:31 Order name: O2 Sat Monitoring; Complete Time: 01:37 4 02/09 00:31 Order name: Urine Dipstick-Ancillary (obtain specimen); Complete Time: 02:37 4 02/09 05:26 Order name: CONS Pharmacy Consult EDNM 02/09 05:26 Order name: Heart Healthy EDNM 02/09 05:27 Order name: CBC with Automated Diff EDNM 02/09 05:27 Order name: CBC with Automated Diff EDNM 02/09 05:27 Order name: Comprehensive Metabolic Panel EDNM 02/09 05:27 Order name: Comprehensive Metabolic Panel [facility] EC:50 Rate is 73 beats/min. Rhythm is regular. QRS Priddy is Normal. AL interval is normal. QRS tw4 interval is normal. QT interval is normal. No Q waves. T waves are Flattened in leads II, III, aVF, V4, V5, V6. No ST changes noted. Clinical impression: NSR w/ Non-specific ST/T Changes. Interpreted by me. Reviewed by me. Administered Medications: No medications were administered Disposition: 02/10/20 04:19 Hospitalization ordered by Sammy Graves for Inpatient Admission. Preliminary diagnosis are Adult failure to thrive, Weakness, Hypo-osmolality and hyponatremia. - Bed requested for Telemetry/MedSurg (Inpatient). - Status is Inpatient Admission. jd3 - Condition is Stable. - Problem is an ongoing problem. - Symptoms are unchanged. Signatures: Dispatcher [employer] [facility] Pily Christianson RN RN tl1 Jose G Murillo RN RN jd3 Jasper Cueva MD MD tw4 Nicole Villela RN RN vc Corrections: (The following items were deleted from the chart) 02:30 00:32 UA MICROSCOPIC+U.LAB.BRZ ordered. [facility] 04:19 Hospitalization Ordered by Sammy Graves MD for Inpatient Admission. Preliminary tl1 diagnosis is Adult failure to thrive; Weakness; Hypo-osmolality and hyponatremia. Bed requested for Telemetry/MedSurg (Inpatient). Status is Inpatient Admission. Condition is Stable. Problem is an ongoing problem. Symptoms are unchanged. tw4 06:26 05:31 02/10/2020 04:19 Hospitalization Ordered by Sammy Graves MD for Inpatient jd3 Admission. Preliminary diagnosis is Adult failure to thrive; Weakness; Hypo-osmolality and hyponatremia. Bed requested for Telemetry/MedSurg (Inpatient). Status is Inpatient Admission. Condition is Stable. Problem is an ongoing problem. Symptoms are unchanged. tl1
--- NOTE | 2020-02-10 04:20 | ER ---
Nurse's Notes [facility] Name: Nola Quijano Age: 74 yrs Sex: Female : 1945 Arrival Date: 02/10/2020 Time: 00:12 Bed 4 Private MD: Diagnosis: Adult failure to thrive;Weakness;Hypo-osmolality and hyponatremia Presentation: 02/09 00:21 Chief complaint: Patient states: "I got real hot, I think I just got overheated." vc Granddaughter states, " She started slurring her words around 2pm, the main ac unit went out in the house and it was pretty hot, I moved her to her room that has ac around 4 pm. She is sleeping more often saying she is always tired, not eating much, and her speech is slurred. She has went down hill since the last time she was drained.". Coronavirus screen: Proceed with normal triage. Patient denies a cough. Patient reports shortness of breath or difficulty breathing. Patient denies measured and/or subjective temperature greater than 100.4F prior to today's visit. Patient denies travel on a cruise ship or to a country the [facility] currently lists as an affected area. Patient denies contact with known and/or suspected case of COVID-19. Ebola Screen: No symptoms or risks identified at this time. Initial Sepsis Screen: Does the patient meet any 2 criteria? Systolic BP < 90 mmHg. No. Patient's initial sepsis screen is negative. Does the patient have a suspected source of infection? No. Patient's initial sepsis screen is negative. Risk Assessment: Do you want to hurt yourself or someone else? Patient reports no desire to harm self or others. Onset of symptoms was February 08, 2020. 00:21 Method Of Arrival: Wheelchair vc 00:21 Acuity: HECTOR 3 vc Triage Assessment: 01:41 Respiratory: Onset: The symptoms/episode began/occurred yesterday, the patient has mild jd3 shortness of breath. Historical: - Allergies: 00:32 PENICILLINS; vc - Home Meds: 00:32 Levemir FlexTouch 100 unit/mL (3 mL) subcutaneous inpn 30 units nightly [Active]; Lasix vc 40 mg Oral tab 1 tab once daily [Active]; propranolol 20 mg Oral tab 1 tab daily [Active]; spironolactone 50 mg Oral tab 1 tab 2 times per day [Active]; - PMHx: 00:32 Diabetes - NIDDM; Hypertension; Cirrhosis; vc - PSHx: 00:32 Hysterectomy; Cholecystectomy; Paracentesis (weekly); vc - Immunization history:: Adult Immunizations up to date, Pneumococcal vaccine is up to date, Flu vaccine is up to date. - Social history:: Smoking status: Patient denies any tobacco usage or history of. Screenin:35 Abuse screen: Denies threats or abuse. Nutritional screening: appetite has decreased.. vc Tuberculosis screening: No symptoms or risk factors identified. Fall Risk Fall in past 12 months (25 points). Secondary diagnosis (15 points) No IV (0 pts). Ambulatory Aid- None/Bed Rest/Nurse Assist (0 pts). Gait- Impaired (20 pts.). Mental Status- Overestimates/Forgets Limitations (15 pts.). Total Carbone Fall Scale indicates High Risk Score (45 or more points). Assessment: 01:39 General: Appears uncomfortable, Behavior is calm, cooperative, appropriate for age. jd3 Pain: Complains of pain in chest Quality of pain is described as pressure. Neuro: Level of Consciousness is awake, alert, obeys commands, Oriented to person, place, time, situation, Reports dizziness. Cardiovascular: Heart tones S1 S2 present Capillary refill < 3 seconds Patient's skin is warm and dry. Rhythm is irregular. Respiratory: Reports shortness of breath at rest Airway is patent Respiratory effort is even, unlabored, Respiratory pattern is regular, symmetrical, Breath sounds are clear bilaterally. Denies cough. GI: Abdomen is round Bowel sounds present X 4 quads. Abd is soft and non tender X 4 quads. Patient currently denies abdominal pain. : No signs and/or symptoms were reported regarding the genitourinary system. EENT: No signs and/or symptoms were reported regarding the EENT system. Derm: Skin is intact, Skin is dry, Skin is pale, Skin temperature is warm. Musculoskeletal: Circulation, motion, and sensation intact. Range of motion: intact in all extremities. 02:26 Reassessment: Patient appears in no apparent distress at this time. Patient and/or jd3 family updated on plan of care and expected duration. Pain level reassessed. Patient is alert, oriented x 3, equal unlabored respirations, skin warm/dry/pink. awaiting results. 03:11 Reassessment: Patient appears in no apparent distress at this time. Patient and/or [facility] family updated on plan of care and expected duration. Pain level reassessed. Patient is alert, oriented x 3, equal unlabored respirations, skin warm/dry/pink. awaiting for repeat troponin. 04:03 Reassessment: Patient appears in no apparent distress at this time. No changes from [facility] previously documented assessment. Patient and/or family updated on plan of care and expected duration. Pain level reassessed. Patient is alert, oriented x 3, equal unlabored respirations, skin warm/dry/pink. 04:06 Reassessment: Repeat troponin was negative. Provider notified. [facility] 04:26 Reassessment: Patient and/or family updated on plan of care and expected duration. Pain [facility] level reassessed. Patient is alert, oriented x 3, equal unlabored respirations, skin warm/dry/pink. pt resting in bed. family and patient updated on plan of care. awaiting hospitalization. 04:33 Reassessment: family requesting to be notified before any decisions are mad on the [facility] patients care. Granddaughters: Zion (ALEX) : [phone], Sierra: [phone]. 05:20 Reassessment: Patient appears in no apparent distress at this time. No changes from [facility] previously documented assessment. Patient and/or family updated on plan of care and expected duration. Pain level reassessed. Patient is alert, oriented x 3, equal unlabored respirations, skin warm/dry/pink. Vital Signs: 00:21 BP 86 / 60; Pulse 75; Resp 15; Temp 97.7(O); Pulse Ox 100% on R/A; Weight 40.82 kg; vc Height 5 ft. 6 in. (167.64 cm); Pain 0/10; 01:43 BP 88 / 63; Pulse 73; Resp 18 S; Pulse Ox 100% on R/A; jd3 02:27 BP 90 / 65; Pulse 71; Resp 19 S; Pulse Ox 100% on R/A; jd3 03:12 BP 93 / 63; Pulse 73; Resp 18 S; Pulse Ox 99% on R/A; jd3 04:03 BP 95 / 66; Pulse 78; Resp 17 S; Pulse Ox 99% on R/A; jd3 05:20 BP 97 / 64; Pulse 73; Resp 17 S; Pulse Ox 99% on R/A; jd3 00:21 Body Mass Index 14.53 (40.82 kg, 167.64 cm) vc ED Course: 00:12 Patient arrived in ED. cl3 00:29 Triage completed. vc 00:30 Jasper Cueva MD is Attending Physician. tw4 01:14 XRAY Chest (1 view) In Process Unspecified. EDMS 01:15 Inserted saline lock: 22 gauge in left forearm, using aseptic technique. Blood lp1 collected. 01:15 Initial lab(s) drawn, by me, sent to lab. lp1 01:29 Jose G Murillo, RN is Primary Nurse. jd3 01:41 Patient has correct armband on for positive identification. Placed in gown. Bed in low jd3 position. Call light in reach. Side rails up X2. school lunch monitor on. Pulse ox on. NIBP on. 01:41 Arm band placed on. EKG completed in triage. Results shown to MD. jd3 02:45 Pillow given. Verbal reassurance given. jd3 03:11 Troponin (emerg Dept Use Only) Sent. jd3 04:19 Sammy Graves MD is Hospitalizing Provider. tw4 05:54 No provider procedures requiring assistance completed. Patient admitted, IV remains in jd3 place. Administered Medications: No medications were administered Outcome: 04:19 Decision to Hospitalize by Provider. tw4 06:19 Admitted to Med/surg accompanied by tech, via wheelchair, room 231, with chart, Report jd3 called to Jordana CARROLL 06:19 Condition: stable 06:19 Instructed on the need for admit, Demonstrated understanding of instructions. 06:26 Patient left the ED. jd3 Signatures: Dispatcher [employer] EDRI Linda Cadet RN RN lp1 Maverick Garnett RN RN jbJose G Burgess, CARLY CARROLL jJasper Vasquez MD MD tw4 Harriet Agudelo cl3 Nicole Villela RN RN vc Corrections: (The following items were deleted from the chart) 01:46 01:39 Cardiovascular: Heart tones S1 S2 present Capillary refill < 3 seconds Patient's jd3 skin is warm and dry. Rhythm is regular jd3 05:54 04:33 Reassessment: family requesting to be notified before any decisions are mad on jd3 the patients care. Granddaughters: Zion: [phone], Sierra: [phone] jd3
[2020-02-10] MEDS ORDERED: ONDANSETRON 4 MG/2 ML VIAL IV PRN (05:20)
[2020-02-10] MEDS ORDERED: MORPHINE 2 MG/ML SYR IV PRN (05:20)
[2020-02-10] MEDS ORDERED: ACETAMINOPHEN 500 MG TAB PO PRN (05:20)
[2020-02-10] MEDS ORDERED: NA CHLORIDE 0.9% 1,000 ML IV SCH (06:00)
--- NOTE | 2020-02-10 08:30 | RAD REPORT ---
EXAM DESCRIPTION: RAD - Chest Single View - 02/10/2020 1:13 am CLINICAL HISTORY: SOB Chest pain. COMPARISON: Chest Single View dated 01/26/2020; Chest Pa And Lat (2 Views) dated 06/12/2017; CHEST SING LE VIEW dated 10/05/2015; CHEST SINGLE VIEW dated 04/04/2014 FINDINGS: Portable technique limits examination quality. The lungs are underinflated with small opacities in the right mid lung and left lower lung which may represent atelectasis or infiltrate. The heart is normal in size. Tortuous thoracic aorta noted.
--- NOTE | 2020-02-10 09:20 | P.HP ---
Certification for Inpatient Patient admitted to: Observation With expected LOS: <2 Midnights Patient will require the following post-hospital care: None Practitioner: I am a practitioner with admitting privileges, knowledge of patient current condition, hospital course, and medical plan of care. Services: Services provided to patient in accordance with Admission requirements found in Title 42 Section 412.3 of the Code of Federal Regulations Patient History Date of Service: 02/10/20 Reason for admission: s/p fall recently with scalp laceration; generalized weakness History of Present Illness: Patient is a 74-year-old female with a history of liver cirrhosis who is on the transplant list at the stent was recently in the hospital for paracentesis. She states afterwards she was post be given albumin but this was not done. She was discharged home, and the next day she fell. She suffered a laceration above her left side. This had to be sutured added outside hospital. She had been home and has been feeling weak and fatigued. She appears to be dehydrated. She also has a UTI. She will be admitted to the hospital for further workup. Allergies Penicillins Allergy (Verified 01/27/20 02:21) Anaphylaxis Home Medications: Furosemide [Lasix*] 80 mg PO DAILY 04/04/14 Propranolol [Inderal*] 20 mg PO DAILY 04/04/14 Spironolactone [Aldactone] 100 mg PO BID 04/04/14 Insulin Detemir [Levemir Flextouch] 10 unit SQ DAILY WITH BREAKFAST 05/13/19 Lactobacillus Acidophilus [Probiotic Acidophilus] 1 tab PO BID 01/27/20 Multivit,Ther Iron,Ca,FA & Min [Centrum Tablet*] 1 tab PO DAILY 01/27/20 Pantoprazole [Protonix Tab*] 40 mg PO BID 01/27/20 Tramadol HCl [Ultram] 50 mg PO BEDTIME PRN 01/27/20 Nitrofurantoin Monohyd/M-Cryst [Macrobid 100 mg Capsule] 100 mg PO Q6H #20 capsule 02/02/20 - Past Medical/Surgical History Diabetic: Yes -: DM -: HTN -: Cirrhosis (questionable) -: Anemia -: Hyperlipidemia -: Hysterectomy -: Cholecystectomy -: Tonsillectomy - Family History Father Family History: Reviewed- Non-Contributory - Social History Smoking Status: Former smoker Alcohol use: No CD- Drugs: No Caffeine use: Yes Review of Systems 10-point ROS is otherwise unremarkable Physical Examination - Vital Signs Temperature: 98 F Blood Pressure: 110/70 Pulse: 85 Respirations: 18 Pulse Ox (%): 95 - Physical Exam General: Alert, In no apparent distress, Oriented x3 Respiratory: Clear to auscultation bilaterally, Normal air movement Cardiovascular: Regular rate/rhythm, Normal S1 S2, No murmurs Gastrointestinal: Normal bowel sounds, Soft and benign, Non-distended, No t enderness, No masses Musculoskeletal: No clubbing, No swelling Neurological: Normal gait, Normal speech, Normal strength at 5/5 x4 extr, Normal tone, Sensation intact, Cranial nerves 3-12 intact - Studies Laboratory Data (last 24 hrs) 02/10/20 01:15: PT 14.5 H, INR 1.23 02/10/20 01:15: WBC 4.2 L, Hgb 10.4 L, Hct 32.2 L, Plt Count 172 D 02/10/20 01:15: Sodium 126 L, Potassium 4.5, BUN 26 H, Creatinine 0.97, Glucose 185 H, Magnesium 1.7 L, Total Bilirubin 0.7, AST 26, ALT 20, Alkaline Phosphatase 196 H Assessment & Plan - Problems (Diagnosis) (1) Ascites of liver Current Visit: No Status: Acute (2) Cirrhosis of liver Current Visit: No Status: Acute (3) Diabetes mellitus Current Visit: No Status: Acute (4) Hyperlipidemia Current Visit: No Status: Acute (5) Hyponatremia Current Visit: No Status: Acute (6) Thrombocytopenia Current Visit: No Status: Acute (7) Status post fall Current Visit: Yes Status: Acute (8) UTI (urinary tract infection) Current Visit: Yes Status: Acute (9) MEGAN (acute kidney injury) Current Visit: Yes Status: Acute - Plan Plan: 1. Continue with saline 2. Monitor sodium level closely 3. Patient has appointment with construction pit worker on Saturday. Patient needs close follow-up 4. Continue lactulose & rifaximin. Continue Lasix, Aldactone, and will add midodrine 5. Close outpatient follow-up with construction pit worker 6. Patient may need outpatient paracentesis or other intervention. GI appointment pending 7. GI and DVT prophylaxis Discharge Plan: Home Plan to discharge in: Greater than 2 days - Advance Directives Does patient have a Living Will: No Does patient have a Durable POA for Healthcare: Yes - Code Status/Comfort Care Code Status Assessed: Yes Code Status: Full Code Critical Care: No Time Spent Managing PTS Care (In Minutes): 40
[2020-02-10 11:28] LABS: Absolute Lymphocytes (CBC) 0.7 K/uL (0.7-4.9); Basophils % 0.9 % (0-1.3); Hematocrit 31.2 % (36.0-45.0); Lymphocytes % 20.7 % (15.3-44.8); MPV 8.2 fL (7.6-11.3); RBC Red Blood Cell Count 4.08 M/uL (3.86-4.86)
[2020-02-10 11:40] LABS: Magnesium 1.7 mg/dL (1.8-2.4); Phosphorus 2.9 mg/dL (2.5-4.9); Potassium 4.6 mmol/L (3.5-5.1)
[2020-02-10 12:10] VITALS: BMI 19.3
[2020-02-10] MEDS ORDERED: D50W 25 GM/50 ML SYRINGE/VIAL IV PRN (12:19)
[2020-02-10] MEDS ORDERED: GLUCAGON 1 MG/VIAL IM PRN (12:19)
[2020-02-10] MEDS: INSULIN -REGULAR HUMAN 50 UNIT/0.5 ML ML SQ SCH ×3 (12:30→21:17)
[2020-02-10] MEDS ORDERED: Magnesium Sulfate 2gm IVPB 2 G/50 ML BAG IV ONE (12:36)
[2020-02-10] MEDS: NA CHLORIDE 0.9% 1,000 ML IV SCH ×2 (13:00→21:18)
[2020-02-10 13:32] LABS: Anisocytosis 1+; Blood Morphology Comment NOTED (NOT SEEN); Platelet Estimate DECR; Urine White Blood Cell Casts OK
[2020-02-10] MEDS: NITROFURAN MACRO 100 MG CAP PO SCH (16:46)
--- NOTE | 2020-02-10 17:53 | CON ---
Date of Consultation: 02/10/2020 Reason For Consultation: Hyponatremia, hypomagnesemia. History Of Present Illness: This is a pleasant 74-year-old female with significant past medical hist ory of cirrhosis, on transplant list, hypertension, diabetes complicated with neuropathy, no retinopa thy. Patient recently admitted to the hospital for ascites, paracentesis, status post paracentesis, found to have UTI, placed on nitrofurantoin. Patient was discharged at home. Patient had a wobbly g ait and fall down. For that reason, patient was approached back, found to have hyponatremia, sodium down to 124. For that reason, we have been consulted. The patient denied taking any nonsteroidal or no change in her medication, patient being on diuresis including Lasix and spironolactone. The patient upon discharge, her sodium around 131 with normal kidney function. The patient started on IV hydration. Sodium up to 126. Allergies: PENICILLIN. Home Medications: Lasix 80 mg daily, propranolol, spironolactone 100 b.i.d., insulin, midodrine, mul tivitamin, pantoprazole, tramadol, lactulose, on nitrofurantoin. Past Medical History: 1.Hypertension. 2.Diabetes complicated with neuropathy. 3.Cirrhosis. 4.Hyperlipidemia. Past Surgical History: Hysterectomy, cholecystectomy, tonsillectomy. Family History: Positive for hypertension. Social History: Ex-smoker. Denied alcohol. Denied drug abuse. Review of Systems: Head and Neck: No red eye. No ear pain. GI: Has abdominal distention. Has ascites, decreased intake. : No polyuria, no dysuria, no hematuria. ORNAMENTAL IRONWORKER HELPER: No vaginal discharge. Respiratory: No shortness of breath. Cardiovascular: No chest pain. Endocrine: No polydipsia. Skin: No rash. Neuro: Has recurrent fall, wobbly gait. Musculoskeletal: Low back pain. Physical Examination: General: When I saw the patient, patient lying in bed, not on any distress. Vital Signs: Blood pressure 110/70, pulse of 85, afebrile. Chest: Clear to auscultation. Heart: S1, S2. Systolic murmur. Abdomen: Soft ascites. Extremities: No edema. Neurologic: Alert. Nonfocal. HEENT: On the head, had laceration on the left eye brow with ecchymosis on the left side of the face . Laboratory Data: Urinalysis; turbid, specific gravity of 1.020. Positive for leuko esterase, wbc's more than 50. Sodium 124, potassium 4.6, bicarb 23, BUN 23, creatinine 0.9, calcium 8.3, magnesium 1 .7. Lactic acid 2.5, phosphorus 2.9. Upon admission, sodium was 126 almost 10 hours before the 124. WBC 3.5, H and H /31.2, platelet 131. Current Medications: The patient on include Tylenol, Zofran, normal saline at 75 per hour, nitrofura ntoin 100 b.i.d. Assessment And Plan: 1.Hyponatremia, possible secondary to depletional with background of cirrhosis. I going to go ahead and send for urine electrolytes and we will continue IV hydration. I am going to increase normal sa line to 100 and we will give the patient single dose of Lasix. We will hold spironolactone right now giving the hyponatremia. 2.Hypertension, currently hypotension. Patient using midodrine. Continue midodrine. 3.Urinary tract infection secondary to Enterococcus faecalis sensitive to Macrobid. Continue Macrobid. 4.Cirrhosis, compensated. No failure. Continue supportive care. MARGARET Voice ID: [id number] Report ID: [id number]
[2020-02-10] MEDS ORDERED: CEFTRIAXONE 1 GM/NS 50 ML 1 GM/50 ML BAG IV SCH (21:00)
[2020-02-11 04:36] LABS: Absolute Lymphocytes (CBC) 0.8 K/uL (0.7-4.9); Basophils % 0.6 % (0-1.3); Hematocrit 29.7 % (36.0-45.0); Lymphocytes % 19.9 % (15.3-44.8); RBC Red Blood Cell Count 3.93 M/uL (3.86-4.86)
[2020-02-11 05:03] LABS: Albumin 2.3 g/dL (3.4-5.0); Bilirubin Total 0.7 mg/dL (0.2-1.0); Magnesium 1.9 mg/dL (1.8-2.4); Phosphorus 2.1 mg/dL (2.5-4.9); Potassium 4.7 mmol/L (3.5-5.1); Protein, Total 6.6 g/dL (6.4-8.2); Uric Acid 8.6 mg/dL (2.6-6.0)
[2020-02-11 05:05] LABS: Thyroid Stimulating Hormone 9.03 uIU/mL (0.360-3.740)
--- NOTE | 2020-02-11 06:32 | EKG ---
Test Date: 2020-02-10 Test Time: 01:33:23 Manager [employer]: [employer] MEASUREMENT RESULTS: Intervals: Rate: 73 DE: 134 QRSD: 92 QT: 398 QTc: 438 [place]: P: -4 DE: 134 QRS: -29 T: 120 INTERPRETIVE STATEMENTS: Normal sinus rhythm Low voltage QRS Nonspecific T wave abnormality Abnormal ECG Compared to ECG 01/26/2020 19:04:59 T-wave abnormality now present Myocardial infarct finding no longer present Electronically Signed On 02-11-20 06:30:21 CDT by Guillaume Fallon
[2020-02-11] MEDS: NA CHLORIDE 0.9% 1,000 ML IV SCH (07:24)
[2020-02-11] MEDS: INSULIN -REGULAR HUMAN 50 UNIT/0.5 ML ML SQ SCH ×2 (07:30→11:30)
[2020-02-11] MEDS ORDERED: ALBUMIN HUMAN 25% 100 ML IV ONE (08:39)
[2020-02-11 08:42] VITALS: TEMP 98
--- NOTE | 2020-02-11 08:46 | P.DS ---
Discharge Date: 02/11/20 Disposition: ROUTINE DISCHARGE Reason for Admission: s/p fall recently with scalp laceration; generalized weakness Consultations: Qualification Engineer - Problems (1) Ascites of liver Current Visit: No Status: Acute (2) Cirrhosis of liver Current Visit: No Status: Acute (3) Diabetes mellitus Current Visit: No Status: Acute (4) Hyperlipidemia Current Visit: No Status: Acute (5) Hyponatremia Current Visit: No Status: Acute (6) Thrombocytopenia Current Visit: No Status: Acute (7) Status post fall Current Visit: Yes Status: Acute (8) UTI (urinary tract infection) Current Visit: Yes Status: Acute (9) MEGAN (acute kidney injury) Current Visit: Yes Status: Acute Brief History of Present Illness: Patient is a 74-year-old female with a history of liver cirrhosis who is on the transplant list at the stent was recently in the hospital for paracentesis. She states afterwards she was post be given albumin but this was not done. She was discharged home, and the next day she fell. She suffered a laceration above her left side. This had to be sutured added outside hospital. She had been home and has been feeling weak and fatigued. She appears to be dehydrated. She also has a UTI. She will be admitted to the hospital for further workup. Hospital Course: Patient is clinically feeling well. She wants to go home so she can make her appointment with the collection manager tomorrow morning at 9 o'clock. She said is very important for her to be there per collection manager. Her sodium has improved. Clinically she appears to be doing well. I will add midodrine to her regimen. She will need outpatient follow up tomorrow at 9 o'clock with the liver specialist. She will be going tissue stand to be evaluated and will have further adjustments as needed. Will send labs with her at discharge. Vital Signs/Physical Exam: Temp Pulse Resp BP Pulse Ox 98 F 85 18 110/70 95 02/11/20 08:42 02/11/20 08:42 02/11/20 08:42 02/11/20 08:42 02/11/20 08:42 General: Alert, In no apparent distress Cardiovascular: Regular rate/rhythm, Normal S1 S2 Laboratory Data at Discharge: WBC 3.9 K/uL (4.3-10.9) L 02/11/20 04:12 Hgb 9.7 g/dL (12.0-15.0) L 02/11/20 04:12 Hct 29.7 % (36.0-45.0) L 02/11/20 04:12 Plt Count 143 K/uL (152-406) L 02/11/20 04:12 PT 14.5 SECONDS (9.5-12.5) H 02/10/20 01:15 INR 1.23 02/10/20 01:15 Sodium 126 mmol/L (136-145) L 02/11/20 04:12 Potassium 4.7 mmol/L (3.5-5.1) 02/11/20 04:12 BUN 20 mg/dL (7-18) H 02/11/20 04:12 Creatinine 0.74 mg/dL (0.55-1.3) 02/11/20 04:12 Glucose 202 mg/dL (74-106) H 02/11/20 04:12 Uric Acid 8.6 mg/dL (2.6-6.0) H 02/11/20 04:12 Phosphorus 2.1 mg/dL (2.5-4.9) L 02/11/20 04:12 Magnesium 1.9 mg/dL (1.8-2.4) 02/11/20 04:12 Total Bilirubin 0.7 mg/dL (0.2-1.0) 02/11/20 04:12 AST 21 U/L (15-37) 02/11/20 04:12 ALT 21 U/L (12-78) 02/11/20 04:12 Alkaline Phosphatase 190 U/L (45-117) H 02/11/20 04:12 Home Medications: Furosemide [Lasix*] 80 mg PO DAILY 04/04/14 Propranolol [Inderal*] 20 mg PO DAILY 04/04/14 Spironolactone [Aldactone] 100 mg PO BID 04/04/14 Insulin Detemir [Levemir Flextouch] 10 unit SQ DAILY WITH BREAKFAST 05/13/19 Lactobacillus Acidophilus [Probiotic Acidophilus] 1 tab PO BID 01/27/20 Multivit,Ther Iron,Ca,FA & Min [Centrum Tablet*] 1 tab PO DAILY 01/27/20 Pantoprazole [Protonix Tab*] 40 mg PO BID 01/27/20 Tramadol HCl [Ultram] 50 mg PO BEDTIME PRN 01/27/20 Nitrofurantoin Monohyd/M-Cryst [Macrobid 100 mg Capsule] 100 mg PO Q6H #20 capsule 02/02/20 Midodrine HCl [Proamatine*] 5 mg PO TID #90 tab 02/11/20 Nitrofuran Macro [Macrobid*] 100 mg PO BIDWM #14 cap 02/11/20 New Medications: Nitrofuran Macro [Macrobid*] 100 mg PO BIDWM #14 cap Midodrine HCl [Proamatine*] 5 mg PO TID #90 tab Patient Discharge Instructions: OK TO DC IV AND DC HOME. FOLLOW-UP WITH PRIMARY CARE PROVIDER IN 1-2 WEEKS. FOLLOW-UP WITH Hazardous Materials Tanker Driver in am at 9:30am. RETURN TO THE ER IF symptoms worsen. CALL or TEXT DR. WEAVER AT [phone] IF ANY QUESTIONS REGARDING HOSPITAL STAY. PLEASE CALL THE FLOOR AT [phone] IF ANY MEDICATION OR NURSING QUESTIONS. Diet: Regular Activity: Fall precautions Time spent managing pt's care (in minutes): 25
[2020-02-11] MEDS ORDERED: FUROSEMIDE 40 MG TABLET PO SCH (09:00)
[2020-02-11] MEDS ORDERED: MIDODRINE HCL 5 MG TABLET PO SCH (09:00)
[2020-02-11] MEDS: NITROFURAN MACRO 100 MG CAP PO SCH (09:27)
[2020-02-11 09:35] VITALS: BP 100/70
[2020-02-11 09:54] VITALS: O2SAT 98
--- NOTE | 2020-02-11 18:02 | PN ---
Date of Progress Note: 02/11/2020 Patient was admitted with hyponatremia secondary to depletion. Patient after hydration recovered. Physical Examination: Vital Signs: Blood pressure 110/70, pulse of 85, afebrile. Chest: Clear to auscultation. Heart: S1, S2. Systolic murmur. Abdomen: Soft, ascites. Extremities: No edema. Neurologic: Alert. No focal. Head and Neck: Bruises on the left eye with laceration on the left eyebrow. Laboratory Data: WBC 3.9, H and H 9.7/29.7, platelets 143. Sodium 126, potassium 4.7, bicarb 25, BU N 20, creatinine 0.7, calcium of 8.5, phosphorus 2.1, magnesium 1.9. Current Medications: The patient on include Lasix, levothyroxine, midodrine. Assessment And Plan: 1.Hyponatremia secondary to depletion with background of cirrhosis. I am going to avoid spironolact one. Okay to resume Lasix. We will monitor the patient as outpatient. 2.Hypertension, controlled optimal as above. Avoid spironolactone. Continue on the Lasix. 3.Hyperkalemia, resolved. 4.Hypophosphatemia, hypomagnesemia status post supplement. 5.Cirrhosis. Continue supportive care. MARGARET Voice ID: [id number] Report ID: [id number]
[2020-02-12] MEDS ORDERED: LEVOTHYROXINE SOD 0.025 MG TAB PO SCH (06:30)
== END 2020-02-11 11:54 | disposition home or self-care (01) ==
LOC: ER 00:10 → ERHOLD 05:28 → 2ND 06:02
PROVIDERS: ADMIT Hospitalist; ATTEND Hospitalist
DX: E87.1 Hypo-osmolality and hyponatremia (principal); R18.8 Other ascites; K74.60 Unspecified cirrhosis of liver; E86.0 Dehydration; N39.0 Urinary tract infection, site not specified; S01.01XA Laceration without foreign body of scalp, initial encounter; E87.6 Hypokalemia; E78.5 Hyperlipidemia, unspecified; D69.6 Thrombocytopenia, unspecified; N17.9 Acute kidney failure, unspecified; E83.42 Hypomagnesemia; E11.40 Type 2 diabetes mellitus with diabetic neuropathy, unspecified; I95.9 Hypotension, unspecified; B96.20 Unspecified Escherichia coli [E. coli] as the cause of diseases classified elsewhere; E83.39 Other disorders of phosphorus metabolism; Z87.891 Personal history of nicotine dependence
CPT/HCPCS: 93005; 87088; 85025 ×3; 81001; 87086; 80048 ×2; 36415 ×2; 82140; 83735 ×3; 84100; 84132; 85610; 84300; 82947 ×4; 80076; 84550; 83605 ×3; 80069; 84443; 87077 ×2; 87186 ×2; 84484 ×2; 84439; 80053; 82533; 83880; 83930; 83935; 71045; 99285; J3475; P9047; J7030 ×3; G0378 ×3

== ENCOUNTER 2021-05-01 14:48 | Inpatient (IN) | payer OTHER ==
--- OUTSIDE RECORDS SUMMARY | 2021-05-01 14:56 | XMS REPORT | Continuity of Care Document ---
:1945 Author Organization [facility] t Address [address] [place] [address] Care Team Providers Name Role Phone Keven cJ MD Primary Care Physician Nayan Kevin Attending Clinician Floyd Watkins Attending Clinician Anish OLIVEIRA Attending Clinician GARY Attending Clinician Unavailable NED Attending Clinician Unavailable CONSTANCE Attending Clinician Unavailable Anish Attending Clinician Jerry Rick Attending Clinician Nayan Kevin Admitting Clinician NED Admitting Clinician Unavailable MARLENA Admitting Clinician Unavailable Payers Payer Name Policy Type Policy Effective Date Expiration Date Sour ce Number MEDICAREMEDICARE PART [id number] 2010 [place] neri A AND 00:00:00 [facility] [id number] [id number] Met su -[facility] 00:00:00 Hos pital litary Problems Condition Condition Condition Status Onset Resolution Last Treating Co mments Source Name Details Category Date Date Treatment Clinician Date PARACENTES Diagnosis Active 2021-04-26 Memoria IS W 04-26 09:25:00 l ULTRASOUND 00:00: Martin celaya GUIDE VR PARACENTES 00 IS W ULTRASOUND GUIDE VR [facility] ASCITES Diagnosis Active 2021-04-26 Mn moria 04-18 09:30:00 l ASCITES 00:00: Cristian 00 Active [facility]/18/[facility] ABD Diagnosis Active 2021-04-26 Mem oria PARACENTES 04-18 09:34:00 l IS ABD 00:00: [facility] W/IMAGING PARACENTES 00 IS W/IMAGING Active [facility] ASCITIS Diagnosis Active 2021-04-20 Mn moria 03-21 04:56:00 l ASCITIS 00:00: [facility] 00 Active [facility] PARACENTES Diagnosis Active 2021-02-11 Memoria IS W 01-11 05:14:00 l ULTRASOUND 00:00: Martin n GUIDE VR. PARACENTES 00 IS W ULTRASOUND GUIDE VR. 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 00:00: Hospit a degree degree 00 l Diabetes Diabetes Disease Active 2020-0 Metho di mellitus mellitus 02-24 00:00: Hospita 00 l Gastrointe Gastrointe Disease Active 2020-0 M ethodi stinal stinal 02-24 hemorrhage hemorrhage 00:00: Ho spita 00 l Hyperlipid Hyperlipid Disease Active 2020-0 M ethodi emia emia 02-24 00:00: Hospita 00 l Hyponatrem Hyponatrem Disease Active 2020-0 M ethodi ia ia 02-24 00:00: Hospita 00 l Hypotensio Hypotensio Disease Active 2020-0 M ethodi n n 02-24 st 00:00: Hospita 00 l Thrombocyt Thrombocyt Disease Active M ethodi openia openia 02-24 st 00:00: Hospita 00 l Portal Portal Disease Active Methodi hypertensi hypertensi 02-24 st on on 00:00: Hospita 00 l Cirrhosis, Cirrhosis, Disease Active M ethodi non-alcoho non-alcoho 12-25 st lic lic 00:00: Hospita 00 l Acute Problem Active 2021-04-22 Memor ia posthemorr 00:12:11 l hagic Acute Cristian anemia posthemorr (disorder) hagic anemia (disorder) Active Problem 04/22/2021 [facility], Georgiana Anguiano Decompensa Problem Active 2021-04-22 M emoria attila 00:12:11 l cirrhosis Cristian of liver Decompensa (disorder) attila cirrhosis of liver (disorder) Active Problem 04/22/2021 [facility], [place] Anguiano 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:12: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 Martin n 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) Active Problem 04/22/2021 [facility], [place]iana Anguiano Hypertensi Problem Active 2021-04-22 M emoria ve 00:12:11 l disorder, Cristian systemic Hypertensi arterial ve (disorder) disorder, systemic arterial (disorder) Active Problem 04/22/2021 [facility], [place] Anguiano Hypomagnes Problem Active 2021-04-22 M emoria emia 00:12:11 l (disorder) Martin n Hypomagnes emia (disorder) Active Problem 04/22/2021 [facility], [place] Anguiano Diabetes Problem Active 2021-04-22 Mem oria mellitus 00:12:11 l type 2 Diabetes Martin n (disorder) mellitus type 2 (disorder) Active Problem 04/22/2021 [facility], [place]iana Anguiano OTHER Diagnosis Active 2021-04-26 Mem oria ASCITES 09:34:00 l OTHER [facility] ASCITES Active [facility] OTHER Diagnosis Active 2021-03-10 Mem oria SPECIFIED 13:02: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 Nikia nn 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 [facility] ABD PAIN Diagnosis Active 2021-02-14 M emoria 11:07:00 l ABD PAIN Martin n [facility] Allergies, Adverse Reactions, Alerts Allergy Allergy Status Severity Reaction(s) Onset Inactive Treating Comm ents Source Name Type Date Date Clinician Penicill DA Active [facility] Penic[facility] DA Active [facility] 0 [facility] 4[facility]17 [place] [facility] Penicill Propensi Active Swelling Meth erinn ins ty to 10-13 st adverse 00:00: Hospita reaction 00 l s to drug penicill penicill Active Memori a in in l [facility] Family History Family Member Diagnosis Comments Start Date Stop Date Source Natural [facility] Social History Social Habit Start Date Stop Date Quantity Comments Source Alcohol intake 2020-02-29 2020-02-29 Ex-drinker [facility] (finding[facility] Social History 2019-08-05 2019-08-05 [facility] 09:57:47 09:57:47 Sex Ass[birth year] [facility] 00:00:00 00:00:00 [facility] Smoking Status Start Date Stop Date Source [facility] smoker [facility] Medications Ordered Filled Start Stop Current Ordering Indication Dosage Frequency Signature Comments Components Source Medication Medication Date Date Medication? Clinician (SIG) Name Name albumin No 25 gm, Memoria human 25% 04-18 Route: l intravenous 16:34: IVPB, Nikia nn solution 00 ONCE, Dosing Weight 55, kg, Start date: 04/18/21 11:34:00 CDT, Stop date: 04/18/21 11:34:00 CDT, Indication : Large volume paracentes is albumin No 25 gm, Memoria human 25% 7 Route: l intravenous 16:30: IVPB, Nikia nn solution 00 ONCE, Dosing Weight 55, kg, Start date: 04/18/21 11:30:00 CDT, Stop date: 04/18/21 11:30:00 CDT, Indication : Large volume paracentes is albumin 2021-0 No 50 gm, Memoria human 25% 7-20 Route: IV, l intravenous 16:50: ONCE, Nikia nn solution 00 Dosing Weight 55, kg, Start date: 04/11/21 11:50:00 CDT, Stop date: 04/11/21 11:50:00 CDT, Indication : Large volume paracentes is albumin 2021-0 No 50 gm, Memoria human 25% 7-13 Route: IV, l intravenous 17:01: ONCE, Nikia nn solution 00 Dosing Weight 55, kg, Priority: NOW, Start date: 04/04/21 12:01:00 CDT, Stop date: 04/04/21 12:01:00 CDT, Indication : Large volume paracentes is albumin 2021-0 No 50 gm, Memoria human 25% 7-07 Route: IV, l intravenous 14:53: ONCE, Nikia nn solution 00 Dosing Weight 55, kg, Start date: 03/29/21 9:53:00 CDT, Stop date: 03/29/21 9:53:00 CDT, Indication : Large volume paracentes is albumin 2021-0 No 50 gm, Memoria human 25% 6 Route: IV, l intravenous 16:56: ONCE, Nikia nn solution 00 Dosing Weight 54.091, kg, Start date: 03/21/21 11:56:00 CDT, Stop date: 03/21/21 11:56:00 CDT, Indication : Large volume paracentes is albumin 2021-0 No 50 gm, Memoria human 25% 6 Route: IV, l intravenous 16:32: ONCE, Nikia nn solution 00 Dosing Weight 54.545, kg, Start date: 03/14/21 11:32:00 CDT, Stop date: 03/14/21 11:32:00 CDT, Indication : Large volume paracentes is albumin 202-0 Yes Notes: Lot Dennis ayde human 25% 6-15 #: l intravenous 16:36: Cristian solution 00 ___ Mfg: (Same as: Plasbumin- 25) "blood product derivative " WASTE: F/P - Red; E -Red MEDICATION WASTE Product Size: 25 gm Product Wasted: ___ gm albumin No 50 gm, Memoria human 25% 08 Route: IV, l intravenous 17:13: ONCE, Nikia nn solution 00 Dosing Weight 54.545, kg, Start date: 02/28/21 12:13:00 CDT, Stop date: 02/28/21 12:13:00 CDT, Indication : Large volume paracentes is Albuminex No 50 gm, IV, Me moria 25% 08 ONCE, # 2 l intravenous 16:48: ea, 0 Nikia nn solution 00 Refill(s) albumin No Notes: Lot Dennis ayde human 25% 02-21 #: l intravenous 17:18: Cristian solution 00 ___ Mfg: (Same as: Plasbumin- 25) "blood product derivative " WASTE: F/P - Red; E -Red MEDICATION WASTE Product Size: 25 gm Product Wasted: ___ gm albumin No 50 gm, IV, Dennis ayde human 25% 02-21 ONCE, # 1 l intravenous 17:15: ea, 0 Nikia nn solution 00 Refill(s) albumin No 50 gm, Memoria human 25% 02-14 Route: IV, l intravenous 17:41: ONCE, Nikia nn solution 00 Dosing Weight 54.091, kg, Start date: 02/14/21 12:41:00 CDT, Stop date: 02/14/21 12:41:00 CDT, Indication : Large volume paracentes is albumin No Notes: Lot Dennis ayde human 25% 02-07 #: l intravenous 17:32: [facility] solution 00 ___ Mfg: (Same as: Plasbumin- 25) "blood product derivative " WASTE: F/P - Red; E -Red MEDICATION WASTE Product Size: 25 gm Product Wasted: ___ gm Albuminex No 25 gm, IV, Me moria 25% 5-18 ONCE, # 2 l intravenous 17:30: ea, 0 Nikia nn solution 00 Refill(s) Albumin No Notes: Lot Dennis Pabon, RETIREMENT 01-19 #: l 15:00: [facility] 00 ___ Mfg: (Same as: Plasbumin- 25) "blood product derivative " WASTE: F/P - Red; E -Red MEDICATION WASTE Product Size: 25 gm Product Wasted: ___ gm Albumin No Notes: Lot Dennis Pabon, RETIREMENT 4 #: l 14:56: Cristian 00 ___ Mfg: (Same as: Plasbumin- 25) "blood product derivative " WASTE: F/P - Red; E -Red MEDICATION WASTE Product Size: 25 gm Product Wasted: ___ gm albumin No 25 gm, 100 Dennis ayde human 25% 4-15 mL, Route: l intravenous 14:56: IV, Drug He rmann solution 00 form: INJ, ONCE, Dosing Weight 54.091, kg, Start date: 01/05/21 9:56:00 CDT, Stop date: 01/05/21 9:56:00 CDT, Indication : Large volume paracentes is albumin No 25 gm, 100 Dennis ayde human 25% 4-15 mL, Route: l intravenous 14:52: IV, Drug He rmann solution 00 form: INJ, ONCE, Dosing Weight 54.091, kg, PRN Cramps, Start date: 01/05/21 9:52:00 CDT, Indication : Large volume paracentes is albumin Yes 25 gm, IV, Dennis ayde human 25% 4-15 ONCE, # l intravenous 14:50: 200 mL, 0 H ermann solution 00 Refill(s), other albumin No 25 gm, 100 Dennis ayde human 25% 4-15 mL, Route: l intravenous 14:42: IV, Drug He rmann solution 00 form: INJ, ONCE, Dosing Weight 54.091, kg, Start date: 01/05/21 9:42:00 CDT, Stop date: 01/05/21 9:42:00 CDT, Indication : Large volume paracentes is albumin 2021-0 No 25 gm, 100 Dennis ayde human 25% 4-15 mL, Route: l intravenous 14:41: IV, Drug He rmann solution 00 form: INJ, ONCE, Dosing Weight 54.091, kg, Start date: 01/05/21 9:41:00 CDT, Stop date: 01/05/21 9:41:00 CDT, Indication : Large volume paracentes is albumin 2021-0 No 25 gm, IV, Dennis ayde human 25% 4-15 ONCE, # l intravenous 14:38: 200 mL, 0 H ermann solution 00 Refill(s), given to patient albumin 2021-0 No 25 gm, 100 Dennis ayde human 25% 4-15 mL, Route: l intravenous 14:35: IV, Drug He rmann solution 00 form: INJ, ONCE, Dosing Weight 54.091, kg, Start date: 01/05/21 9:35:00 CDT, Stop date: 01/05/21 9:35:00 CDT, Indication : Large volume paracentes is albumin 2021-0 No 25 gm, IV, Dennis ayde human 25% 4-15 ONCE, # l intravenous 14:33: 200 mL, 0 H ermann solution 00 Refill(s), other albumin 2021-0 No 25 gm, IV, Dennis ayde human 25% 4-15 ONCE, # l intravenous 14:32: 200 mL, 0 H ermann solution 00 Refill(s), given to patient Saline 2021-0 No 10 ml, Memoria Flush 0.9% 4-09 Route: l 02:00: IVP, Drug [facility] 00 Form: INJ, Dosing Weight 54.091, kg, Q12H, Start date: 12/29/20 21:00:00 CDT, Duration: 30 day, Stop date: 01/28/21 9:00:00 CDT albumin 2021-0 No 25 gm, Memoria human 25% 4-08 Route: l intravenous 14:15: IVPB, Nikia nn solution 00 Q15Min, Dosing Weight 54.091, kg, Start date: 12/29/20 9:15:00 CDT, Duration: 2 doses or times, Stop date: 12/29/20 9:30:00 CDT, Indication : Large volume paracentes is Saline No 10 ml, Memoria Flush 0.9% 12-29 Route: l 14:06: IVP, Drug [facility] 00 Form: INJ, Dosing Weight 54.091, kg, PRN, PRN Line Flush, Start date: 12/29/20 9:06:00 CDT, Duration: 30 day, Stop date: 01/28/21 9:05:00 CDT Albumin No Notes: Lot Dennis Pabon, RETIREMENT 4 #: l 15:00: [facility] ___ Mfg: (Same as: Plasbumin- 25) "blood product derivative " WASTE: F/P - Red; E -Red MEDICATION WASTE Product Size: 25 gm Product Wasted: ___ gm Albumin No Notes: Lot Dennis Pabon, RETIREMENT 3 #: l 15:00: [facility] ___ Mfg: (Same as: Plasbumin- 25) "blood product derivative " WASTE: F/P - Red; E -Red MEDICATION WASTE Product Size: 25 gm Product Wasted: ___ gm Albumin No Notes: Lot Dennis Pabon, RETIREMENT 3 #: l 16:00: [facility] ___ Mfg: (Same as: Plasbumin- 25) "blood product derivative " WASTE: F/P - Red; E -Red MEDICATION WASTE Product Size: 25 gm Product Wasted: ___ gm Saline No 10 ml, Memoria Flush 0.9% 12-01 Route: l 15:00: IVP, Drug Cristian 00 Form: INJ, Dosing Weight 54.545, kg, Q12H, Start date: 12/01/20 9:00:00 INTEGRATION TECHNICIAN, Duration: 30 day, Stop date: 12/30/20 21:00:00 CDT Furosemide 2020-0 No 40 mg, Memor ia 3-11 Route: PO, l 15:00: Daily, [facility] Dosing Weight 54.545, kg, Start date: 12/01/20 9:00:00 INTEGRATION TECHNICIAN, Duration: 30 day, Stop date: 12/30/20 9:00:00 CDT insulin 2020-0 No 10 unit, Memori a detemir 3-11 Route: l 15:00: SUB-Q, Cristian 00 QAM, Dosing Weight 54.545, kg, Start date: 12/01/20 9:00:00 INTEGRATION TECHNICIAN, Duration: 30 day, Stop date: 12/30/20 9:00:00 CDT Lactulose 2020-0 No 40 gm, 60 Mem oria 667 MG/ML 3-11 mL, Route: l Oral 15:00: PO, Drug Cristian Solution form: SYRP, Daily, Dosing Weight 54.545, kg, Start date: 12/01/20 9:00:00 INTEGRATION TECHNICIAN, Duration: 30 day, Stop date: 12/30/20 9:00:00 CDT multivitami 2020-0 No 1 tab, Dennis ayde n 3-11 Route: PO, l 15:00: Dosing Weight 54.545, kg, Daily, Start date: 12/01/20 9:00:00 INTEGRATION TECHNICIAN, Duration: 30 day, Stop date: 12/30/20 9:00:00 CDT Spironolact 2020-0 No 50 mg, Dennis ayde one 3-11 Route: PO, l 15:00: BID, Dosing Weight 54.545, kg, Start date: 12/01/20 9:00:00 INTEGRATION TECHNICIAN, Duration: 30 day, Stop date: 12/30/20 17:00:00 CDT albumin 2020-0 No 25 gm, Memoria human 25% 3-11 Route: l intravenous 14:45: IVPB, Nikia nn solution 00 Q15Min, Dosing Weight 54.545, kg, Start date: 12/01/20 8:45:00 INTEGRATION TECHNICIAN, Duration: 3 doses or times, Stop date: 12/01/20 9:15:00 INTEGRATION TECHNICIAN, Indication : Large volume paracentes is Saline No 10 ml, Memoria Flush 0.9% 12-01 Route: l 14:38: IVP, Drug [facility] 00 Form: INJ, Dosing Weight 54.545, kg, PRN, PRN Line Flush, Start date: 12/01/20 8:38:00 INTEGRATION TECHNICIAN, Duration: 30 day, Stop date: 12/31/20 9:37:00 CDT Albumin No Notes: Lot Dennis Pabon, RETIREMENT 11-22 #: l 17:00: [facility] ___ Mfg: (Same as: Plasbumin- 25) "blood product derivative " WASTE: F/P - Red; E -Red MEDICATION WASTE Product Size: 25 gm Product Wasted: ___ gm Albumin No Notes: Lot Dennis messer Human, RETIREMENT 11-22 #: l 16:00: [facility] 00 ___ Mfg: (Same as: Plasbumin- 25) "blood product derivative " WASTE: F/P - Red; E -Red MEDICATION WASTE Product Size: 25 gm Product Wasted: ___ gm albumin No 25 gm, Memoria human 25% 2- Route: l intravenous 16:45: IVPB, Nikia nn solution 00 Q15Min, Dosing Weight 56.364, kg, Start date: 11/14/20 10:45:00 INTEGRATION TECHNICIAN, Duration: 3 doses or times, Stop date: 11/14/20 11:15:00 INTEGRATION TECHNICIAN, Indication : Large volume paracentes is albumin No 25 gm, Memoria human 25% 1-21 Route: l intravenous 16:45: IVPB, Nikia nn solution 00 Q15Min, Dosing Weight 56.364, kg, Start date: 10/13/20 10:45:00 INTEGRATION TECHNICIAN, Duration: 2 doses or times, Stop date: 10/13/20 11:00:00 INTEGRATION TECHNICIAN, Indication : Large volume paracentes is albumin 2020-0 No 25 gm, Memoria human 25% 1-07 Route: l intravenous 14:45: IVPB, Nikia nn solution 00 Q15Min, Dosing Weight 56.364, kg, Start date: 09/29/20 8:45:00 INTEGRATION TECHNICIAN, Duration: 3 doses or times, Stop date: 09/29/20 9:15:00 INTEGRATION TECHNICIAN, Indication : Large volume paracentes is albumin 2020-1 No 75 gm, Memoria human 25% 2-30 Route: l intravenous 15:07: IVPB, Nikia nn solution 00 ONCE, Dosing Weight 56.364, kg, Start date: 09/21/20 9:07:00 INTEGRATION TECHNICIAN, Stop date: 09/21/20 9:07:00 INTEGRATION TECHNICIAN, Indication : Large volume paracentes is Lactulose 2019-09 Yes 40 gm = 60 Me moria 667 MG/ML 2-30 mL, PO, l Oral 15:05: Daily, [facility] Solution 00 (hyperammo dayo), # 240 mL, 0 Refill(s) albumin 2019- No 50 gm, Memoria human 25% 2-17 Route: IV, l intravenous 16:19: ONCE, Nikia nn solution 00 Dosing Weight 56.364, kg, Start date: 09/08/20 10:19:00 INTEGRATION TECHNICIAN, Stop date: 09/08/20 10:19:00 INTEGRATION TECHNICIAN, Indication : Large volume paracentes is albumin 2020-1 No 50 gm, Memoria human 25% 2-10 Route: l intravenous 15:35: IVPB, Nikia nn solution 00 ONCE, Dosing Weight 61.7, kg, Start date: 09/01/20 9:35:00 INTEGRATION TECHNICIAN, Stop date: 09/01/20 9:35:00 INTEGRATION TECHNICIAN, Indication : Large volume paracentes is albumin 2020-1 Yes 75 gm = Memoria human 25% 2-03 300 mL, l intravenous 16:03: IVPB, Nikia nn solution 00 ONCE, 0 Refill(s) albumin 2020-1 Yes 75 gm, Memoria human 25% 2-03 Route: l intravenous 16:02: IVPB, Nikia nn solution 00 ONCE, Dosing Weight 61.7, kg, Start date: 12/03/20 10:02:00 INTEGRATION TECHNICIAN, Stop date: 08/25/20 10:02:00 INTEGRATION TECHNICIAN, Indication : Large volume paracentes is albumin 2020-1 Yes 75 gm, Memoria human 25% 1-19 Route: l intravenous 15:45: IVPB, Nikia nn solution 00 ONCE, Dosing Weight 61.7, kg, Start date: 08/11/20 9:45:00 INTEGRATION TECHNICIAN, Stop date: 08/11/20 9:45:00 INTEGRATION TECHNICIAN, Indication : Large volume paracentes is albumin 2020-1 Yes 75 gm, Memoria human 25% 1-12 Route: l intravenous 16:29: IVPB, Nikia nn solution 00 ONCE, Dosing Weight 61.7, kg, Start date: 08/04/20 10:29:00 INTEGRATION TECHNICIAN, Stop date: 08/04/20 10:29:00 INTEGRATION TECHNICIAN, Indication : Large volume paracentes is lactulose 2020-0 Yes 20g QD Take 20 g Met hodi 10 gram/15 6-[address] mL (15 mL) 14:17: daily. Hospi ta solution 11 l Lactobacill 2020-0 Yes 1{tbl} Q.5D Take 1 Me thodi us 6-[address] acidoph-L.b 14:17: mouth 2 Hos mehran ulgar 11 (two) l (FLORANEX) times a 1 million day. cell tablet traMADoL 2020-0 Yes [id number] 50mg Q6H Take 50 mg Me thodi (ULTRAM) 50 6-[address] mg tablet 14:17: every 6 Hospi ta 11 (six) l hours as needed for moderate pain .acute pain. pantoprazol 2020-0 Yes 40mg QD Take 40 mg Methodi e 6-[address] (PROTONIX) 14:17: daily. Hospi ta 40 MG EC 11 l tablet insulin 2020-0 Yes 10U QD Inject 10 Metho di detemir 6-[address] U-100 14:17: under the Hospita (LEVEMIR) 11 skin l 100 unit/mL daily. injection 2020-0 Yes 1{tbl} QD Take 1 Metho di vit,calc76- 6-[address] iron-folic 14:17: mouth Hospit a 29 mg iron- 11 daily. l 1 mg tablet per tablet Immunizations Ordered Immunization Filled Immunization Date Status Commen ts Source Name Name [id number] 2021-01-05 Completed Dennis rial [id number] 17:11:51 Herm celsa <sup>1, 2</sup> [id number] 2020-12-15 Completed Dennis rial [id number] 17:07:06 Herm celsa <sup>1, 2</sup> [id number] 2020-12-15 Completed Dennis rial [id number] 17:07:06 Herm celsa <sup>3, 4</sup> [id number] 2020-12-15 Completed Dennis rial [id number] 05:00:00 Herm celsa <sup>5, 6</sup> Vital Signs Vital Name Observation Time Observation Value Comments Source Height 2021-04-18 16:29:00 165.1 cm [facility] Weight 2021-04-18 16:29:00 [facility] BMI Calculated 2021-04-18 16:29:00 Memori al [facility] Height 2021-04-11 16:24:00 166.37 cm [facility] Weight 2021-04-11 16:24:00 [facility] BMI Calculated 2021-04-11 16:24:00 Memori al Cristian Height 2021-04-04 17:02:00 166.37 cm [facility] Weight 2021-04-04 17:02:00 [facility] BMI Calculated 2021-04-04 17:02:00 Memori al [facility] Height 2021-03-29 14:49:00 166.37 cm [facility] Weight 2021-03-29 14:49:00 [facility] BMI Calculated 2021-03-29 14:49:00 Memori al Cristian Height 2021-03-07 16:35:00 166.37 cm [facility] Weight 2021-03-07 16:35:00 [facility] BMI Calculated 2021-03-07 16:35:00 Memori al [facility] Height 2021-02-28 16:46:00 166.37 cm [facility] Weight 2021-02-28 16:46:00 [facility] BMI Calculated 2021-02-28 16:46:00 Memori al Cristian Height 2021-02-21 17:15:00 166.37 cm [facility] Weight 2021-02-21 17:15:00 [facility] BMI Calculated 2021-02-21 17:15:00 Memori al Cristian Height 2021-02-07 17:04:00 166.37 cm [facility] Weight 2021-02-07 17:04:00 [facility] BMI Calculated 2021-02-07 17:04:00 [facility] al [facility] Heart Rate 2021-01-19 15:00:00 [facility] Systolic (mm Hg) 2021-01-19 15:00:00 Dennis rial Cristian Diastolic (mm Hg) 2021-01-19 15:00:00 Mem orial [facility] Heart Rate 2021-01-19 14:24:00 [facility] Systolic (mm Hg) 2021-01-19 14:24:00 Dennis rial [facility] Diastolic (mm Hg) 2021-01-19 14:24:00 Mem orial Cristian Height 2021-01-19 14:23:00 166.37 cm [facility] Weight 2021-01-19 14:23:00 [facility] BMI Calculated 2021-01-19 14:23:00 Memori al Cristian Height 2021-01-12 14:41:00 166.37 cm [facility] Weight 2021-01-12 14:41:00 [facility] BMI Calculated 2021-01-12 14:41:00 Memori al Cristian Height 2020-12-22 14:09:00 166.37 cm [facility] Weight 2020-12-22 14:09:00 [facility] BMI Calculated 2020-12-22 14:09:00 Mem[facility] al [facility] Height 2020-12-15 14:19:00 166.37 cm [facility] Weight 2020-12-15 14:19:00 [facility] BMI Calculated 2020-12-15 14:19:00 [facility] Height 2020-12-09 15:01:00 166.37 cm [facility] Weight 2020-12-09 15:01:00 [facility] BMI Calculated 2020-12-09 15:01:00 [facility]ori al Cristian Height 2020-11-22 15:03:00 166.37 cm [facility] Weight 2020-11-22 15:03:00 [facility] BMI Calculated 2020-11-22 15:03:00 [facility] al Crist[facility] Height 2020-09-08 15:54:00 165.1 cm [facility] Weight 2020-09-08 15:54:00 [facility] BMI Calculated 2020-09-08 15:54:00 Memori al Cristian Height 2020-09-06 17:46:00 165.1 cm [facility] Weight 2020-09-06 17:46:00 [facility] BMI Calculated 2020-09-06 17:46:00 [facility] Procedures Procedure Date / Time Performed Performing Clinician Sour e Abdominal paracentesis 2020-09-29 15:14:00 Vinay Foster (diagnostic or therapeutic); with imaging guidance Plan of Care Planned Activity Planned Date Details Comments Source Future Scheduled Test 65+ PNEUMOCOCCAL Me [facility] VACCINE (1 of 2 - PPSV23) [code = 65+ PNEUMOCOCCAL VACCINE (1 of 2 - PPSV23)] Future Scheduled Test DIABETES: RETINAL EYE [facility] EXAM [code = DIABETES: RETINAL EYE EXAM] Future Scheduled Test DIABETIC FOOT EXAM [facility] [code = DIABETIC FOOT EXAM] Future Scheduled Test URINE MICROALBUMIN [facility] [code = URINE MICROALBUMIN] Future Scheduled Test COVID-19 VACCINE (1) [facility] [code = COVID-19 VACCINE (1)] Future Scheduled Test COLONOSCOPY SCREENING [facility] [code = COLONOSCOPY SCREENING] Future Scheduled Test SHINGLES VACCINES (#1) [facility] [code = SHINGLES VACCINES (#1)] Future Scheduled Test INFLUENZA VACCINE [code [facility] = INFLUENZA VACCINE] Future Scheduled Test BREAST CANCER SCREENING [facility] [code = BREAST CANCER SCREENING] Encounters Start End Encounter Admission Attending Care Care Encounter Source Date/Time Date/Time Type Type Clinicians Facility Department ID 2021-04-[address] [facility] [id number] [facility] 09:15:26 2021-04-26 2021-04-[address] [facility] [id number] [facility] 09:10:00 09:10:00 2021-04-18 2021-04-20 Recurring [facility] [id number] Memoria 15:45:00 04:59:00 baltazar Foster 04 l [facility] 2021-04-18 2021-04-19 Outpatient Egwim, MHPL MHPL [id number] 10:45:00 23:59:00 [place] 04 [facility] 2021-04-18 2021-04-18 Outpatient MHBL MHBL [id number] MHBL 10:45:00 10:45:00 2021-04-04 2021-04-05 [facility] [id number] Memoria 16:10:00 04:59:00 r Brethren 52 [facility] 2021-04-04 2021-04-04 Outpatient Egwim, MHPL MHPL [id number] 11:10:00 23:59:00 [place] 52 [facility] 2021-04-04 2021-04-04 Outpatient MHBL MHBL [id number] MHBL 11:10:00 11:10:00 2021-03-14 2021-03-16 Recurring [facility] [id number] Memoria 16:05:00 04:59:00 baltazar Brethren 03 [facility] 2021-03-14 2021-03-15 Outpatient Egwim, MHPL MHPL [id number] 11:05:00 23:59:00 [place] 03 [facility] 2021-03-14 2021-03-14 Outpatient MHBL MHBL [id number] MHBL 11:05:00 11:05:00 2021-02-14 2021-02-14 Emergency [facility] [id number] Memoria 15:57:18 15:57:00 baltazar Foster 51 [facility] 2021-02-14 2021-02-14 Outpatient Watkins, MHPL MHPL [id number] 10:57:18 10:57:00 Reeva 51 [place] 2021-01-12 2021-02-11 Recurring [facility] [id number] Memoria 13:33:00 04:59:00 r Brethren 02 [facility] 2021-01-12 2021-02-10 Outpatient Egwim, MHPL MHPL [id number] 08:33:00 23:59:00 [place] 02 [facility] 2021-01-26 2021-01-26 Outpatient [facility] MED [id number] [facility] 09:31:00 09:31:00 2021-01-12 2021-01-12 Outpatient MHBL MHBL [id number] MHBL 08:33:00 08:33:00 2020-12-09 2021-01-08 Recurring [facility] [id number] Memoria 14:41:00 04:59:00 [facility] 01 [facility] 2020-12-09 2021-01-07 Outpatient Egwim, MHPL MHPL [id number] 09:41:00 23:59:00 [place] 01 [place] 2020-12-29 2020-12-29 Bedded nullFlavo [facility] [id number] Memoria 13:47:00 16:00:00 Outpatient [facility] 48 [facility] 2020-12-29 2020-12-29 Outpatient Egwim, [facility] [id number] 08:47:00 11:00:00 [place] 48 [place] 2020-12-29 2020-12-[address] [facility] [id number] MHHH 08:47:00 08:47:00 2020-12-09 2020-12-09 Outpatient MHBL MHBL [id number] MHBL 09:41:00 09:41:00 2020-12-01 2020-12-01 Bedded nullFlavo [facility] [id number] Memoria 14:24:00 16:00:00 Outpatient [facility] 46 [facility] 2020-12-01 2020-12-01 Outpatient Egwim, [facility] [id number] 08:24:00 10:00:00 [place] 46 [place] 2020-12-01 2020-12-01 Outpatient MHHH MHH [id number] MHHH 08:24:00 08:24:00 2020-11-22 2020-11-23 Outpatient [facility] [id number] Memoria 14:35:00 05:59:00 [facility] 45 [facility] 2020-11-22 2020-11-22 Outpatient Egwim, MHPL MHPL [id number] 08:35:00 23:59:00 [place] 45 [place] 2020-11-22 2020-11-22 Outpatient MHBL MHBL [id number] MHBL 08:35:00 08:35:00 2020-11-14 2020-11-14 Bedded nullFlavo [facility] [id number] Memoria 16:08:00 17:51:00 Outpatient r Brethren 44 [facility] 2020-11-14 2020-11-14 Outpatient Egwim, [facility] [id number] 10:08:00 11:51:00 [place] 44 [place] 2020-11-14 2020-11-14 Outpatient M[facility]H M[facility]H [id number] MHHH 10:08:00 10:08:00 2020-11-03 2020-11-03 Outpatient MHHH M[facility] [id number] MHHH 09:00:00 09:00:00 2020-10-27 2020-10-27 Outpatient MHHH M[facility]H [id number] MHHH 09:00:00 09:00:00 2020-10-20 2020-10-20 Outpatient MHHH M[facility]H [id number] MHHH 08:30:00 08:30:00 2020-10-13 2020-10-13 [facility] [id number] Memoria 14:31:00 16:56:00 Outpatient [facility] 40 [facility] 2020-10-13 2020-10-13 Outpatient Egwim, [facility] [id number] 08:31:00 10:56:00 [place] 40 [place] 2020-10-13 2020-10-13 Outpatient MHHH M[facility]H [id number] MHHH 08:31:00 08:31:00 2020-10-06 2020-10-06 Outpatient MHHH M[facility]H [id number] MHHH 08:52:00 08:52:00 2020-09-29 2020-09-29 Bedded nullFlavo [facility] [id number] Memoria 14:28:00 16:04:00 Outpatient r Brethren 38 [facility] 2020-09-29 2020-09-29 Outpatient Egwim, [facility] [id number] 08:28:00 10:04:00 Neena Spicer 2020-09-29 2020-09-29 Outpatient MHHH MHHH [id number] MHHH 08:28:00 08:28:00 2020-09-21 2020-09-21 Bedded [facility] [id number] Memoria 14:16:00 15:41:00 Outpatient r Cristian 37 [facility] 2020-09-21 2020-09-21 Outpatient Egwim, [facility] [id number] 08:16:00 09:41:00 Kewjerri 37 [place] 2020-09-21 2020-09-21 Outpatient MHHH MHHH [id number] MHHH 08:16:00 08:16:00 2020-09-14 2020-09-14 Outpatient MHHH M[facility] [id number] MHHH 08:25:00 08:25:00 2020-09-08 2020-09-09 Outpatient nullFlavo [facility] [id number] Memoria 15:34:00 05:59:00 baltazar Foster 35 l [facility] 2020-09-08 2020-09-08 Outpatient Egwim, MHPL MHPL [id number] 09:34:00 23:59:00 Kewjerri 35 [place] 2020-09-08 2020-09-08 Outpatient Egwim, MHPL MHPL [id number] 09:34:00 23:59:00 Kewjerri 35 [place] 2020-09-08 2020-09-08 Outpatient MHBL MHBL [id number] MHBL 09:34:00 09:34:00 2020-09-01 2020-09-01 Bedded nullFlavo [facility] [id number] Memoria 14:20:00 19:00:00 Outpatient r Cristian 34 [facility] 2020-09-01 2020-09-01 [facility]im[facility] [id number] 08:20:00 13:00:00 Aleksandrsanjeevwjerri 34 [place] 2020-09-01 2020-09-01 Outpatient MHHH MHHH [id number] MHHH 08:20:00 08:20:00 2020-08-26 2020-08-26 Transcriyanira Oconnell, [id number] Methodi 00:00:00 00:00:00 Orders Sebastien [id number] [id number] Hospit a [id number] l .8 2020-08-25 2020-08-25 Bedded nullFlavo [facility] [id number] Memoria 14:29:00 16:26:00 Outpatient r Brethren 33 [facility] 2020-08-25 2020-08-25 Outpatient Egwim, [facility] [id number] 08:29:00 10:26:00 [facility] 2020-08-25 2020-08-25 Outpatient MHHH MHHH [id number] MHHH 08:29:00 08:29:00 2020-08-17 2020-08-17 Outpatient MHHH M[facility]H [id number] MHHH 08:00:00 08:00:00 2020-08-11 2020-08-11 Bedded nullFlavo [facility] [id number] Memoria 14:19:00 19:00:00 Outpatient r Brethren 31 [facility] 2020-08-11 2020-08-11 Outpatient Egwim, [facility] [id number] 08:19:00 13:00:00 [facility] 2020-08-11 2020-08-11 Outpatient MHHH MHHH [id number] MHHH 08:19:00 08:19:00 2020-08-04 2020-08-04 Bedded nullFlavo [facility] [id number] Memoria 15:10:00 17:12:00 Outpatient r Brethren 30 [facility] 2020-08-04 2020-08-04 Outpatient Egwim, [facility] [id number] 09:10:00 11:12:00 [place] 30 [facility] 2020-08-04 2020-08-04 Outpatient MHHH MHHH [id number] MHHH 09:10:00 09:10:00 2020-07-28 2020-07-29 Bedded [facility] [id number] Memoria 13:30:00 00:00:00 Outpatient r Cristian 29 l [facility] 2020-07-28 2020-07-28 Outpatient Egwim, [facility] [id number] 07:30:00 18:00:00 Chukwjerri 29 [place] 2020-07-28 2020-07-28 Outpatient MHHH MH [id number] MHHH 07:30:00 07:30:00 2020-07-21 2020-07-21 Bedded [facility] [id number] Memoria 12:25:00 14:37:00 Outpatient r Cristian 28 [facility] 2020-07-21 2020-07-21 Outpatient Egwim, [facility] [id number] 07:25:00 09:37:00 Chukwjerri 28 [place] 2020-07-21 2020-07-21 Outpatient MHHH MH [id number] MHHH 07:25:00 07:25:00 2020-07-14 2020-07-14 Bedded [facility]Flavo [facility] [id number] Memoria 12:41:00 14:58:00 Outpatient r Cristian 27 l [facility] 2020-07-14 2020-07-14 Outpatient Egwim, [facility] [id number] 07:41:00 09:58:00 Chukwjerri 27 [place] 2020-07-14 2020-07-[address] [facility] [id number] MHHH 07:41:00 07:41:00 2020-07-07 2020-07-07 Bedded [facility]Fl[facility] [id number] Memoria 12:47:00 15:07:00 Outpatient r Cristian 26 [facility] 2020-07-07 2020-07-07 Outpatient Egwim, [facility] [id number] 07:47:00 10:07:00 Chukwjerri 26 [place] 2020-07-07 2020-07-07 Outpatient MHHH MHHH [id number] MHHH 07:47:00 07:47:00 2020-06-30 2020-06-30 Bedded [facility]Fl[facility] [id number] Memoria 12:28:00 15:20:00 Outpatient r Brethren 25 l [facility] 2020-06-30 2020-06-30 Outpatient Egwim, [facility] [id number] 07:28:00 10:20:00 Chukwjerri 25 [place] 2020-06-30 2020-06-30 Outpatient MHHH MH [id number] MHHH 07:28:00 07:28:00 2020-06-23 2020-06-23 Bedded nullFlavo [facility] [id number] Memoria 13:00:00 22:03:00 Outpatient r Brethren 24 [facility] 2020-06-23 2020-06-23 Outpatient Egwim, [facility] [id number] 08:00:00 17:03:00 Chukwjerri 24 [place] 2020-06-23 2020-06-23 Outpatient MHHH MH [id number] MHHH 08:00:00 08:00:00 2020-06-16 2020-06-16 Bedded nullFlavo [facility] [id number] Memoria 12:43:00 16:32:00 Outpatient r Cristian 23 [facility] 2020-06-16 2020-06-16 Outpatient Egwim, [facility] [id number] 07:43:00 11:32:00 Chukwjerri 23 [place] 2020-06-16 2020-06-16 Outpatient MHHH MH [id number] MHHH 07:43:00 07:43:00 2020-06-09 2020-06-09 Bedded nullFlavo [facility] [id number] Memoria 12:51:00 17:09:00 Outpatient r Brethren 22 [facility] 2020-06-09 2020-06-09 Outpatient Egwim, [facility] [id number] 07:51:00 12:09:00 [place] 22 [place] 2020-06-09 2020-06-09 Outpatient MHHH MHHH [id number] MHHH 07:51:00 07:51:00 2020-06-02 2020-06-02 Bedded nullFlavo [facility] [id number] Memoria 13:15:00 16:38:00 Outpatient r Brethren 21 l [facility] 2020-06-02 2020-06-02 Outpatient Egwim, [facility] [id number] 08:15:00 11:38:00 Chukwjerri Spicer 2020-06-02 2020-06-02 Outpatient MHHH MHHH [id number] MHHH 08:15:00 08:15:00 2020-05-26 2020-05-26 Bedded nullFlavo [facility] [id number] Memoria 13:23:00 18:43:00 Outpatient r Brethren 20 [facility] 2020-05-26 2020-05-26 Outpatient Egwim, [facility] [id number] 08:23:00 13:43:00 Chukwjerri Spicer 2020-05-26 2020-05-26 Outpatient MHHH MHHH [id number] MHHH 08:23:00 08:23:00 2020-05-18 2020-05-18 Bedded nullFlavo [facility] [id number] Memoria 13:42:00 14:56:00 Outpatient r Brethren 19 l [facility] 2020-05-18 2020-05-18 Outpatient Egwim, [facility] [id number] 08:42:00 09:56:00 Chukwjerri Spicer 2020-05-18 2020-05-18 Outpatient MHHH MHHH [id number] MHHH 08:42:00 08:42:00 2020-05-12 2020-05-12 Bedded nullFlavo [facility] [id number] Memoria 14:36:00 16:15:00 Outpatient r Cristian 18 l [facility] 2020-05-12 2020-05-12 Outpatient Egwim, [facility] [id number] 09:36:00 11:15:00 Ch[place] 18 [place] 2020-05-12 2020-05-12 Outpatient MHHH MHHH [id number] MHHH 09:36:00 09:36:00 2020-05-05 2020-05-05 Bedded nullFlavo [facility] [id number] Memoria 14:09:00 16:06:00 Outpatient r Cristian 17 l [facility] 2020-05-05 2020-05-05 Outpatient Egwim, [facility] [id number] 09:09:00 11:06:00 Neena Spicer 2020-05-05 2020-05-05 [facility] [id number] 09:09:00 09:09:00 2020-04-28 2020-04-28 Bedded nullFlavo [facility] [id number] Memoria 14:00:00 17:23:00 Outpatient r Brethren 16 [facility] 2020-04-28 2020-04-28 Outpatient Egwim, [facility] [id number] 09:00:00 12:23:00 Aleksandrbraden Spicer 2020-04-28 2020-04-28 [facility] [id number] [facility] 09:00:00 09:00:00 2020-04-27 2020-04-27 Outpatient GARY, [facility] [id number] [place] 00:00:00 00:00:00 RICO 491 Method i 2020-04-27 2020-04-27 Outpatient GARY, [facility] [id number] [place] 00:00:00 00:00:00 RICO 493 Method i 2020-04-27 2020-04-27 Outpatient GARY, [facility] [id number] [place] 00:00:00 00:00:00 RICO 492 Method i 2020-04-27 2020-04-27 Outpatient GARY, [facility] [id number] [place] 00:00:00 00:00:00 RICO 113 Method i 2020-04-21 2020-04-21 [facility] [id number] [facility] 07:54:00 07:54:00 2020-04-14 2020-04-14 Bedded nullFlavo [facility] [id number] Memoria 14:11:00 21:00:00 Outpatient r Brethren 14 [facility] 2020-04-14 2020-04-14 Outpatient Egwim, [facility] [id number] 09:11:00 16:00:00 Daliajerri Spicer 2020-04-14 2020-04-[address] [facility] [id number] MHHH 09:11:00 09:11:00 2020-04-07 2020-04-07 Bedded nullFlavo [facility] [id number] Memoria 14:26:00 19:42:00 Outpatient r [address] 2020-04-07 2020-04-07 Outpatient Egwim, [facility] [id number] 09:26:00 14:42:00 [place] 13 [place] 2020-04-07 2020-04-07 [id number] 09:26:00 09:26:00 2020-03-31 2020-03-31 Bedded nullFlavo [facility] [id number] Memoria 13:25:00 20:34:[address] 2020-03-31 2020-03-31 Outpatient Egwim, [facility] [id number] 08:25:00 15:34:00 [place] 12 [place] 2020-03-31 2020-03-[address] [facility] [id number] MHHH 08:25:00 08:25:00 2020-03-29 2020-03-29 Outpatient GARY, [facility] [id number] [place] 00:00:00 00:00:00 RICO 387 Method i 2020-03-29 2020-03-29 Outpatient GARY, [facility] [id number] [place] 00:00:00 00:00:00 RICO 815 Method i 2020-03-29 2020-03-29 Outpatient GARY, [facility] [id number] [place] 00:00:00 00:00:00 RICO 814 Method i 2020-03-29 2020-03-29 Outpatient GARY, [facility] [id number] [place] 00:00:00 00:00:00 RICO 697 Method i 2020-03-29 2020-03-29 Outpatient GARY, [facility] [id number] [place] 00:00:00 00:00:00 RICO 116 Method i 2020-03-29 2020-03-29 Outpatient GARY, [facility] [id number] [place] 00:00:00 00:00:00 RAFIK 371 Method i 2020-03-29 2020-03-29 [facility], [facility] [id number] [place] 00:00:00 00:00:00 RAFIK 189 Method i 2020-03-28 2020-03-28 Outpatient GARY, [facility] [id number] [place] 00:00:00 00:00:00 RAFIK 497 Method i 2020-03-28 2020-03-28 Outpatient GARY, [facility] [id number] [place] 00:00:00 00:00:00 RAFIK 499 Method i 2020-03-28 2020-03-28 Outpatient GARY, [facility] [id number] [place] 00:00:00 00:00:00 RAFIK 498 Method i 2020-03-28 2020-03-28 Outpatient GARY, [facility] [id number] [place] 00:00:00 00:00:00 RAFIK 500 Method i 2020-03-28 2020-03-28 Outpatient GARY, [facility] [id number] [place] 00:00:00 00:00:00 RAFIK 557 Method i 2020-03-28 2020-03-28 Outpatient GARY, [facility] [id number] [place] 00:00:00 00:00:00 RAFIK 650 Method i 2020-03-24 2020-03-24 Bedded [facility] [id number] Memoria 13:24:00 20:31:00 Outpatient r Brethren 11 [facility] 2020-03-24 2020-03-24 Outpatient Egwim, [facility] [id number] 08:24:00 15:31:00 Ch[place] 11 [place] 2020-03-24 2020-03-24 Outpatient [facility] [id number] [facility] 08:24:00 08:24:00 2020-03-17 2020-03-17 Bedded [facility] [id number] Memoria 13:26:00 19:00:00 Outpatient r Brethren 10 [facility] 2020-03-17 2020-03-17 Outpatient Egwim, [facility] [id number] 08:26:00 14:00:00 [place] 10 [place] 2020-03-17 2020-03-17 Outpatient MHHH MHHH [id number] MHHH 08:26:00 08:26:00 2020-03-10 2020-03-10 Bedded nullFlavo [facility] [id number] Memoria 13:05:00 19:00:00 Outpatient r Brethren 09 [facility] 2020-03-10 2020-03-10 Outpatient Egwim, [facility] [id number] 08:05:00 14:00:00 [place] 09 [place] 2020-03-10 2020-03-10 Outpatient MHHH MHHH [id number] MHHH 08:05:00 08:05:00 2020-03-03 2020-03-03 Bedded nullFlavo [facility] [id number] Memoria 12:56:00 19:00:00 Outpatient r Brethren 08 [facility] 2020-03-03 2020-03-03 Outpatient Egwim, [facility] [id number] 07:56:00 14:00:00 Ch[place] 08 Nayan 2020-03-03 2020-03-03 Outpatient MHHH MHHH [id number] MHHH 07:56:00 07:56:00 2020-02-25 2020-02-25 Outpatient MHHH M[facility]H [id number] MHHH 07:27:00 07:27:00 2020-02-16 2020-02-18 Outpatient [facility], [facility] [id number] [place] [address] 00:00:00 00:00:00 JOHN Pearson [facility] 2020-02-12 2020-02-12 Outpatient MHHH M[facility]H [id number] MHHH 09:53:00 09:53:00 2020-02-02 2020-02-02 Bedded nullFlavo [facility] [id number] Memoria 12:35:00 19:00:00 Outpatient r Brethren 05 [facility] 2020-02-02 2020-02-02 Outpatient Egwim, [facility] [id number] 07:35:00 14:00:00 [place] 05 Nayan 2020-02-02 2020-02-02 [facility] [id number] MH 07:35:00 07:35:00 2019-12-26 2019-12-31 Inpatient NOLASCO, [facility] [id number] [place] 00:00:00 00:00:00 RIGOBERTO Moise Method i 2019-12-02 2019-12-03 Bedded [facility]Flavo [facility] [id number] Memoria 16:50:00 13:25:00 Outpatient r Brethren 02 [facility] 2019-12-02 2019-12-03 Outpatient Ankoma-Sey, [facility] [id number] 11:50:00 08:25:00 Sebastien 2019-12-02 2019-12-02 Outpatient [facility] MED [id number] [facility] 11:50:00 11:50:00 2019-12-01 2019-12-02 Outpt Diag nullFlavo [facility] [id number] Memoria 18:22:00 04:59:00 Services r [address] 2019-12-01 2019-12-01 Outpatient Andrea-Meg, [facility] M[facility] [id number] 13:22:00 23:59:00 Sebastien 2019-11-09 2019-11-10 Bedded nullFlavo [facility] [id number] Memoria 18:34:00 15:28:00 Outpatient r Brethren 01 [facility] 2019-11-09 2019-11-10 Outpatient [facility] [id number] 12:34:00 09:28:00 James Farr 2019-11-09 2019-11-09 Outpatient MH MED [id number] MHH 12:34:00 12:34:00 2019-10-29 2019-10-29 Bedded nullFlavo [facility] [id number] Memoria 13:45:00 20:00:00 Outpatient r Brethren 00 [facility] 2019-10-29 2019-10-29 Outpatient Egwim, [facility] [id number] 07:45:00 14:00:00 [place] 00 Nayan 2019-10-29 2019-10-29 Outpatient M[facility] MED [id number] M[facility] 07:45:00 07:45:00 Results Test Description Test Time Test Comments Results Result Sourc e Comments BODY FLUIDS 2021-04-18 1 [facility] 16:37:00 Cristian BODY FLUIDS 2021-04-18 23 [facility] 16:37:00 Cristian BODY FLUIDS 2021-04-18 76 [facility] 16:37:00 Cristian BODY FLUIDS 2021-04-18 Light Yellow [facility] 16:37:00 (04/18/21 11:37 Brethren AM) BODY FLUIDS 2021-04-18 Slight Cloudy [facility] 16:37:00 (04/18/21 11:37 Cristian AM) BODY FLUIDS 2021-04-18 155 [facility] 16:37:00 Brethren BODY FLUIDS 2021-04-18 600 [facility] 16:37:00 Cristian BODY FLUIDS 2021-04-18 Ascites [facility] 16:37:00 (04/18/21 11:37 Cristian AM) BODY FLUIDS 2021-04-11 Light Yellow [facility] 16:36:00 (04/11/21 11:36 Cristian AM) BODY FLUIDS 2021-04-11 Slight Cloudy [facility] 16:36:00 (04/11/21 11:36 Cristian AM) BODY FLUIDS 2021-04-11 216 [facility] 16:36:00 Brethren BODY FLUIDS 2021-04-11 475 [facility] 16:36:00 Cristian BODY FLUIDS 2021-04-11 [facility] 16:36:00 (04/11/21 11:36 Cristian AM) BODY FLUIDS 2021-04-11 1 Memorial 16:36:00 Cristian BODY FLUIDS 2021-04-11 46 [facility] 16:36:00 Cristian BODY FLUIDS 2021-04-11 51 [facility] 16:36:00 Brethren BODY FLUIDS 2021-04-11 2 [facility] 16:36:00 Cristian BODY FLUIDS 2021-04-04 Light Yellow [facility] 16:20:00 (04/04/21 11:20 Brethren AM) BODY FLUIDS 2021-04-04 Slight Cloudy [facility] 16:20:00 (04/04/21 11:20 Brethren AM) BODY FLUIDS 2021-04-04 333 [facility] 16:20:00 Cristian BODY FLUIDS 2021-04-04 721 [facility] 16:20:00 Cristian BODY FLUIDS 2021-04-04 4 [facility] 16:20:00 Cristian BODY FLUIDS 2021-04-04 37 [facility] 16:20:00 Brethren BODY FLUIDS 2021-04-04 50 [facility] 16:20:00 Brethren BODY FLUIDS 2021-04-04 9 [facility] 16:20:00 Cristian BODY FLUIDS 2021-04-04 [facility] 16:20:00 (04/04/21 11:20 Brethren AM) BODY FLUIDS 2021-03-29 Light Yellow [facility] 14:29:00 (03/29/21 9:29 Cristian AM) BODY FLUIDS 2021-03-29 Slight Cloudy [facility] 14:29:00 (03/29/21 9:29 Cristian AM) BODY FLUIDS 2021-03-29 388 [facility] 14:29:00 Cristian BODY FLUIDS 2021-03-29 1498 [facility] 14:29:00 Cristian BODY FLUIDS 2021-03-29 3 Memorial 14:29:00 Brethren BODY FLUIDS 2021-03-29 63 [facility] 14:29:00 Cristian BODY FLUIDS 2021-03-29 29 [facility] 14:29:00 Cristian BODY FLUIDS 2021-03-29 3 Memorial 14:29:00 Brethren BODY FLUIDS 2021-03-29 Ascites (03/29/21 [facility] 14:29:00 9:29 AM) [facility] BODY FLUIDS 2021-03-21 3 [facility] 16:49:00 [facility] BODY FLUIDS 2021-03-14 Yellow (03/14/21 [facility] 16:36:00 11:36 AM) [facility] BODY FLUIDS 2021-03-14 Slight Cloudy [facility] 16:36:00 (03/14/21 11:36 Cristian AM) BODY FLUIDS 2021-03-14 509 [facility] 16:36:00 [facility] BODY FLUIDS 2021-03-14 1535 [facility] 16:36:00 [facility] BODY FLUIDS 2021-03-14 6 [facility] 16:36:00 [facility] BODY FLUIDS 2021-03-14 31 [facility] 16:36:00 [facility] BODY FLUIDS 2021-03-14 62 [facility] 16:36:00 [facility] BODY FLUIDS 2021-03-14 1 [facility] 16:36:00 [facility] BODY FLUIDS 2021-03-14 Ascites [facility] 16:36:00 (03/14/21 11:36 [facility] AM) BODY FLUIDS 2021-03-07 Yellow (03/07/21 [facility] 16:48:00 11:48 AM) [facility] BODY FLUIDS 2021-03-07 Slight Cloudy [facility] 16:48:00 (03/07/21 11:48 [facility]ian AM) BODY FLUIDS 2021-03-07 Light Yellow [facility] 16:48:00 *ABN*(03/07/21 [facility] 11:48 AM) BODY FLUIDS 2021-03-07 425 [facility] 16:48:00 [facility] BODY FLUIDS 2021-03-07 1804 [facility] 16:48:00 [facility] BODY FLUIDS 2021-03-07 4 [facility] 16:48:00 [facility] BODY FLUIDS 2021-03-07 50 [facility] 16:48:00 [facility] BODY FLUIDS 2021-03-07 45 [facility] 16:48:00 [facility] BODY FLUIDS 2021-03-07 1 [facility] 16:48:00 [facility] BODY FLUIDS 2021-03-07 Ascites [facility] 16:48:00 (03/07/21 11:48 [facility] AM) BODY FLUIDS 2021-02-28 Yellow (02/28/21 [facility] 16:58:00 11:58 AM) [facility] BODY FLUIDS 2021-02-28 Slight Cloudy [facility] 16:58:00 (02/28/21 11:58 [facility] AM) BODY FLUIDS 2021-02-28 395 [facility] 16:58:00 [facility] BODY FLUIDS 2021-02-28 1433 [facility] 16:58:00 [facility] BODY FLUIDS 2021-02-28 3 [facility] 16:58:00 [facility] BODY FLUIDS 2021-02-28 41 [facility] 16:58:00 [facility] BODY FLUIDS 2021-02-28 52 [facility] 16:58:00 [facility] BODY FLUIDS 2021-02-28 4 [facility] 16:58:00 [facility] BODY FLUIDS 2021-02-28 Ascites (02/28/21 [facility] 16:58:00 11:58 AM) [facility] BODY FLUIDS 2021-02-21 Light Yellow [facility] 17:37:00 *ABN*(02/21/21 [facility] 12:37 PM) BODY FLUIDS 2021-02-07 Yellow (02/07/21 [facility] 17:21:00 12:21 PM) [facility] BODY FLUIDS 2021-02-07 Slight Cloudy [facility] 17:21:00 (02/07/21 12:21 Crist[facility] PM) BODY FLUIDS 2021-02-07 190 [facility] 17:21:00 [facility] BODY FLUIDS 2021-02-07 803 [facility] 17:21:00 [facility] BODY FLUIDS 2021-02-07 Ascites [facility] 17:21:00 (02/07/21 12:21 [facility] PM) BODY FLUIDS 2021-02-07 3 [facility] 17:21:00 [facility] BODY FLUIDS 2021-02-07 44 [facility] 17:21:00 [facility] BODY FLUIDS 2021-02-07 48 [facility] 17:21:00 [facility] BODY FLUIDS 2021-02-07 5 [facility] 17:21:00 [facility] BODY FLUIDS 2021-01-19 Yellow (01/19/21 [facility] 14:[facility]:00 9:47 AM) [facility] BODY FLUIDS 2021-01-19 Slight Cloudy [facility] 14:47:00 (01/19/21 9:47 [facility] AM) BODY FLUIDS 2021-01-19 294 [facility] 14:47:00 [facility] BODY FLUIDS 2021-01-19 1458 [facility] 14:47:00 [facility] BODY FLUIDS 2021-01-19 1 [facility] 14:47:00 [facility] BODY FLUIDS 2021-01-19 32 [facility] 14:47:00 [facility] BODY FLUIDS 2021-01-19 58 [facility] 14:47:00 [facility] BODY FLUIDS 2021-01-19 9 [facility] 14:47:00 [facility] BODY FLUIDS 2021-01-19 [facility] 14:47:00 (01/19/21 9:47 [facility] AM) BODY FLUIDS 2021-01-12 Light Yellow [facility] 14:41:00 (01/12/21 9:41 [facility] AM) BODY FLUIDS 2021-01-12 Slight Cloudy [facility] 14:41:00 (01/12/21 9:41 [facility] AM) BODY FLUIDS 2021-01-12 231 [facility] 14:41:00 [facility] BODY FLUIDS 2021-01-12 1175 [facility] 14:41:00 [facility] BODY FLUIDS 2021-01-12 5 [facility] 14:41:00 [facility] BODY FLUIDS 2021-01-12 50 [facility] 14:41:00 [facility] BODY FLUIDS 2021-01-12 42 [facility] 14:41:00 [facility] BODY FLUIDS 2021-01-12 3 [facility] 14:41:00 [facility] BODY FLUIDS 2021-01-12 [facility] 14:41:00 (01/12/21 9:41 [facility] AM) BODY FLUIDS 2021-01-05 Light Yellow [facility] 15:27:00 (01/05/21 10:27 [facility] AM) BODY FLUIDS 2021-01-05 Slight Cloud[facility] 15:27:00 (01/05/21 10:27 [facility] AM) BODY FLUIDS 2021-01-05 294 [facility] 15:27:00 [facility] BODY FLUIDS 2021-01-05 1951 [facility] 15:27:00 [facility] BODY FLUIDS 2021-01-05 3 [facility] 15:27:00 [facility] BODY FLUIDS 2021-01-05 51 [facility] 15:27:00 [facility] BODY FLUIDS 2021-01-05 41 [facility] 15:27:00 [facility] BODY FLUIDS 2021-01-05 5 [facility] 15:27:00 [facility] BODY FLUIDS 2021-01-05 [facility] 15:27:00 (01/05/21 10:27 [facility] AM) BODY FLUIDS 2020-12-29 [facility] (12/29/20 [facility] 15:04:00 10:04 AM) [facility] BODY FLUIDS 2020-12-29 Light Yellow [facility] 15:04:00 (12/29/20 10:04 [facility] AM) BODY FLUIDS 2020-12-29 Clear (12/29/20 [facility] 15:04:00 10:04 AM) [facility] BODY FLUIDS 2020-12-29 Yellow [facility] 15:04:00 *ABN*(12/29/20 [facility] 10:04 AM) BODY FLUIDS 2020-12-29 274 [facility] 15:04:00 [facility] BODY FLUIDS 2020-12-29 1708 [facility] 15:04:00 [facility] BODY FLUIDS 2020-12-29 2 [facility] 15:04:00 [facility] BODY FLUIDS 2020-12-29 48 [facility] 15:04:00 [facility] BODY FLUIDS 2020-12-29 49 [facility] 15:04:00 [facility] BODY FLUIDS 2020-12-29 1 [facility] 15:04:00 [facility] BODY FLUIDS 2020-12-22 Yellow (12/22/20 [facility] 14:15:00 9:15 AM) [facility] BODY FLUIDS 2020-12-22 Clear (12/22/20 [facility] 14:15:00 9:15 AM) [facility] BODY FLUIDS 2020-12-22 504 [facility] 14:15:00 [facility] BODY FLUIDS 2020-12-22 1511 [facility] 14:15:00 [facility] BODY FLUIDS 2020-12-22 [facility] (12/22/20 [facility] 14:15:00 9:15 AM) [facility] BODY FLUIDS 2020-12-22 1 [facility] 14:15:00 [facility] BODY FLUIDS 2020-12-22 54 [facility] 14:15:00 [facility] BODY FLUIDS 2020-12-22 42 [facility] 14:15:00 [facility] BODY FLUIDS 2020-12-22 3 [facility] 14:15:00 [facility] BODY FLUIDS 2020-12-15 Yellow (12/15/20 [facility] 14:39:00 9:39 AM) [facility] BODY FLUIDS 2020-12-15 Slight Cloudy [facility] 14:39:00 (12/15/20 9:39 [facility] AM) BODY FLUIDS 2020-12-15 425 [facility] 14:39:00 [facility] BODY FLUIDS 2020-12-15 1728 [facility] 14:39:00 [facility] BODY FLUIDS 2020-12-15 2 [facility] 14:39:00 [facility] BODY FLUIDS 2020-12-15 37 [facility] 14:39:00 [facility] BODY FLUIDS 2020-12-15 54 [facility] 14:39:00 [facility] BODY FLUIDS 2020-12-15 7 [facility] 14:39:00 [facility] BODY FLUIDS 2020-12-15 [facility] 14:39:00 (12/15/20 9:39 [facility] AM) BODY FLUIDS 2020-12-09 Yellow [facility] 15:27:00 *ABN*(12/09/20 [facility] 10:27 AM) BODY FLUIDS 2020-12-01 [facility] 14:40:00 (12/01/20 8:40 [facility] AM) BODY FLUIDS 2020-12-01 Yellow (12/01/20 [facility] 14:40:00 8:40 AM) [facility] BODY FLUIDS 2020-12-01 Slight Cloudy [facility] 14:40:00 (12/01/20 8:40 [facility] AM) BODY FLUIDS 2020-12-01 Yellow [facility] 14:40:00 *ABN*(12/01/20 [facility] 8:40 AM) BODY FLUIDS 2020-12-01 310 [facility] 14:40:00 [facility] BODY FLUIDS 2020-12-01 1638 [facility] 14:40:00 [facility] BODY FLUIDS 2020-12-01 1 [facility] 14:40:00 [facility] BODY FLUIDS 2020-12-01 44 [facility] 14:40:00 [facility] BODY FLUIDS 2020-12-01 53 [facility] 14:40:00 [facility] BODY FLUIDS 2020-12-01 2 [facility] 14:40:00 [facility] BODY FLUIDS 2020-11-22 0 [facility] 15:34:00 [facility] BODY FLUIDS 2020-11-22 Yellow (11/22/20 [facility] 15:34:00 9:34 AM) [facility] BODY FLUIDS 2020-11-22 Clear (11/22/20 [facility] 15:34:00 9:34 AM) [facility] BODY FLUIDS 2020-11-22 243 [facility] 15:34:00 [facility] BODY FLUIDS 2020-11-22 1567 [facility] 15:34:00 [facility] BODY FLUIDS 2020-11-22 59 [facility] 15:34:00 [facility] BODY FLUIDS 2020-11-22 41 [facility] 15:34:00 [facility] BODY FLUIDS 2020-11-22 [facility] (11/22/20 [facility] 15:34:00 9:34 AM) [facility] BODY FLUIDS 2020-11-14 [facility] 17:05:00 (11/14/20 11:05 [facility] AM) BODY FLUIDS 2020-11-14 Yellow (11/14/20 [facility] 17:05:00 11:05 AM) [facility] BODY FLUIDS 2020-11-14 Clear (11/14/20 [facility] 17:05:00 11:05 AM) [facility] BODY FLUIDS 2020-11-14 Yellow [facility] 17:05:00 *ABN*(11/14/20 [facility] 11:05 AM) BODY FLUIDS 2020-11-14 64 [facility] 17:05:00 [facility] BODY FLUIDS 2020-11-14 1749 [facility] 17:05:00 [facility] BODY FLUIDS 2020-11-14 1 [facility] 17:05:00 [facility] BODY FLUIDS 2020-11-14 51 [facility] 17:05:00 [facility] BODY FLUIDS 2020-11-14 47 [facility] 17:05:00 [facility] BODY FLUIDS 2020-11-14 1 [facility] 17:05:00 [facility] BODY FLUIDS 2020-10-13 2461 [facility] 15:50:00 [facility] BODY FLUIDS 2020-10-13 200 [facility] 15:50:00 [facility] BODY FLUIDS 2020-10-13 1 [facility] 15:50:00 [facility] BODY FLUIDS 2020-10-13 53 [facility] 15:50:00 [facility] BODY FLUIDS 2020-10-13 44 [facility] 15:50:00 [facility] BODY FLUIDS 2020-10-13 2 [facility] 15:50:00 [facility] BODY FLUIDS 2020-10-13 [facility] 15:50:00 (10/13/20 9:50 [facility] AM) BODY FLUIDS 2020-10-13 Yellow (10/13/20 [facility] 15:50:00 9:50 AM) [facility] BODY FLUIDS 2020-10-13 Slight Cloudy [facility] 15:50:00 (10/13/20 9:50 [facility] AM) BODY FLUIDS 2020-10-13 Yellow [facility] 15:50:00 *ABN*(10/13/20 [facility] 9:50 AM) BODY FLUIDS 2020-09-29 [facility] (09/29/20 [facility] 15:08:00 9:08 AM) [facility] BODY FLUIDS 2020-09-29 Yellow (09/29/20 [facility] 15:08:00 9:08 AM) [facility] BODY FLUIDS 2020-09-29 Clear (09/29/20 [facility] 15:08:00 9:08 AM) [facility] BODY FLUIDS 2020-09-29 Light Yellow [facility] 15:08:00 *ABN*(09/29/20 [facility] 9:08 AM) BODY FLUIDS 2020-09-29 390 [facility] 15:08:00 [facility] BODY FLUIDS 2020-09-29 2347 [facility] 15:08:00 [facility] BODY FLUIDS 2020-09-29 7 [facility] 15:08:00 [facility] BODY FLUIDS 2020-09-29 32 [facility] 15:08:00 [facility] BODY FLUIDS 2020-09-29 58 [facility] 15:08:00 [facility] BODY FLUIDS 2020-09-29 3 [facility] 15:08:00 [facility] BODY FLUIDS 2020-09-21 [facility] 14:52:00 (09/21/20 8:52 [facility] AM) BODY FLUIDS 2020-09-21 Yellow [facility] 14:52:00 (09/21/20 8:52 [facility] AM) BODY FLUIDS 2020-09-21 Slight Cloudy [facility] 14:52:00 (09/21/20 8:52 [facility] AM) BODY FLUIDS 2020-09-21 Yellow [facility] 14:52:00 *ABN*(09/21/20 [facility] 8:52 AM) BODY FLUIDS 2020-09-21 190 [facility] 14:52:00 [facility] BODY FLUIDS 2020-09-21 1634 [facility] 14:52:00 [facility] BODY FLUIDS 2020-09-21 3 [facility] 14:52:00 [facility] BODY FLUIDS 2020-09-21 60 [facility] 14:52:00 [facility] BODY FLUIDS 2020-09-21 30 [facility] 14:52:00 [facility] BODY FLUIDS 2020-09-21 7 [facility] 14:52:00 [facility] BODY FLUIDS 2020-09-08 1435 [facility] 16:23:00 [facility] BODY FLUIDS 2020-09-08 478 [facility] 16:23:00 [facility] BODY FLUIDS 2020-09-08 5 [facility] 16:23:00 [facility] BODY FLUIDS 2020-09-08 26 [facility] 16:23:00 [facility] BODY FLUIDS 2020-09-08 56 [facility] 16:23:00 [facility] BODY FLUIDS 2020-09-08 2 [facility] 16:23:00 [facility] BODY FLUIDS 2020-09-08 11 [facility] 16:23:00 [facility] BODY FLUIDS 2020-09-08 Yellow [facility] 16:23:00 (09/08/20 10:23 [facility] AM) BODY FLUIDS 2020-09-08 Clear (09/08/20 [facility] 16:23:00 10:23 AM) [facility] BODY FLUIDS 2020-09-08 [facility] 16:23:00 (09/08/20 10:23 [facility] AM) IMMUNOLOGY 2020-09-06 Not Detected [facility] 17:27:00 (09/06/20 11:27 [facility] AM) BODY FLUIDS 2020-09-01 [facility] 16:00:00 (09/01/20 10:00 [facility] AM) BODY FLUIDS 2020-09-01 Yellow [facility] 16:00:00 (09/01/20 10:00 [facility] AM) BODY FLUIDS 2020-09-01 Slight Cloudy [facility] 16:00:00 (09/01/20 10:00 [facility] AM) BODY FLUIDS 2020-09-01 Yellow [facility] 16:00:00 *ABN*(09/01/20 [facility] 10:00 AM) BODY FLUIDS 2020-09-01 641 [facility] 16:00:00 [facility] BODY FLUIDS 2020-09-01 2273 [facility] 16:00:00 [facility] BODY FLUIDS 2020-09-01 1 [facility] 16:00:00 [facility] BODY FLUIDS 2020-09-01 70 [facility] 16:00:00 [facility] BODY FLUIDS 2020-09-01 27 [facility] 16:00:00 [facility] BODY FLUIDS 2020-09-01 2 [facility] 16:00:00 [facility] BODY FLUIDS 2020-08-25 [facility] 15:20:00 (08/25/20 9:20 [facility] AM) BODY FLUIDS 2020-08-25 Yellow (08/25/20 [facility] 15:20:00 9:20 AM) [facility] BODY FLUIDS 2020-08-25 Clear (08/25/20 [facility] 15:20:00 9:20 AM) [facility] BODY FLUIDS 2020-08-25 Yellow [facility] 15:20:00 *ABN*(08/25/20 [facility] 9:20 AM) BODY FLUIDS 2020-08-25 434 [facility] 15:20:00 [facility] BODY FLUIDS 2020-08-25 2490 [facility] 15:20:00 [facility] BODY FLUIDS 2020-08-11 [facility] 15:30:00 (08/11/20 9:30 [facility] AM) BODY FLUIDS 2020-08-11 Yellow [facility] 15:30:00 (08/11/20 9:30 [facility] AM) BODY FLUIDS 2020-08-11 Slight Cloudy [facility] 15:30:00 (08/11/20 9:30 [facility] AM) BODY FLUIDS 2020-08-11 Yellow [facility] 15:30:00 *ABN*(08/11/20 [facility] 9:30 AM) BODY FLUIDS 2020-08-11 684 [facility] 15:30:00 [facility] BODY FLUIDS 2020-08-11 1841 [facility] 15:30:00 [facility] BODY FLUIDS 2020-08-04 [facility] 16:07:00 (08/04/20 10:07 [facility] AM) BODY FLUIDS 2020-08-04 Light Yellow [facility] 16:07:00 (08/04/20 10:07 [facility] AM) BODY FLUIDS 2020-08-04 Slight Cloudy [facility] 16:07:00 (08/04/20 10:07 [facility] AM) BODY FLUIDS 2020-08-04 Light Yellow [facility] 16:07:00 *ABN*(08/04/20 [facility] 10:07 AM) BODY FLUIDS 2020-08-04 322 [facility] 16:07:00 [facility] BODY FLUIDS 2020-08-04 2525 [facility] 16:07:00 [facility] BODY FLUIDS 2020-08-04 2 [facility] 16:07:00 [facility] BODY FLUIDS 2020-08-04 66 [facility] 16:07:00 [facility] BODY FLUIDS 2020-08-04 30 [facility] 16:07:00 [facility] BODY FLUIDS 2020-08-04 1 [facility] 16:07:00 [facility] BODY FLUIDS 2020-08-04 1 [facility] 16:07:00 [facility] BODY FLUIDS 2020-07-28 [facility] 15:05:00 (07/28/20 9:05 [facility] AM) BODY FLUIDS 2020-07-28 Yellow (07/28/20 [facility] 15:05:00 9:05 AM) [facility] BODY FLUIDS 2020-07-28 Slight Cloudy [facility] 15:05:00 (07/28/20 9:05 [facility] AM) BODY FLUIDS 2020-07-28 Yellow [facility] 15:05:00 *ABN*(07/28/20 [facility] 9:05 AM) BODY FLUIDS 2020-07-28 392 [facility] 15:05:00 [facility] BODY FLUIDS 2020-07-28 1991 [facility] 15:05:00 [facility] BODY FLUIDS 2020-07-28 4 [facility] 15:05:00 [facility] BODY FLUIDS 2020-07-28 54 [facility] 15:05:00 [facility] BODY FLUIDS 2020-07-28 40 [facility] 15:05:00 [facility] BODY FLUIDS 2020-07-28 2 [facility] 15:05:00 [facility] BODY FLUIDS 2020-07-21 2354 [facility] 13:40:00 [facility] BODY FLUIDS 2020-07-21 362 [facility] 13:40:00 [facility] BODY FLUIDS 2020-07-21 3 [facility] 13:40:00 [facility] BODY FLUIDS 2020-07-21 52 [facility] 13:40:00 [facility] BODY FLUIDS 2020-07-21 42 [facility] 13:40:00 [facility] BODY FLUIDS 2020-07-21 3 [facility] 13:40:00 [facility] BODY FLUIDS 2020-07-21 [facility] 13:40:00 (07/21/20 8:40 [facility] AM) BODY FLUIDS 2020-07-21 Yellow [facility] 13:40:00 (07/21/20 8:40 [facility] AM) BODY FLUIDS 2020-07-21 Slight Cloudy [facility] 13:40:00 (07/21/20 8:40 [facility] AM) BODY FLUIDS 2020-07-21 Yellow [facility] 13:40:00 *ABN*(07/21/20 [facility] 8:40 AM) BODY FLUIDS 2020-07-14 [facility] 16:00:00 (07/14/20 11:00 [facility] AM) BODY FLUIDS 2020-07-14 Yellow [facility] 16:00:00 (07/14/20 11:00 [facility] AM) BODY FLUIDS 2020-07-14 Slight Cloudy [facility] 16:00:00 (07/14/20 11:00 [facility] AM) BODY FLUIDS 2020-07-14 Yellow [facility] 16:00:00 *ABN*(07/14/20 [facility] 11:00 AM) BODY FLUIDS 2020-07-14 513 [facility] 16:00:00 [facility] BODY FLUIDS 2020-07-14 3050 [facility] 16:00:00 [facility] BODY FLUIDS 2020-07-14 6 [facility] 16:00:00 [facility] BODY FLUIDS 2020-07-14 41 [facility] 16:00:00 [facility] BODY FLUIDS 2020-07-14 50 [facility] 16:00:00 [facility] BODY FLUIDS 2020-07-14 3 [facility] 16:00:00 [facility] BODY FLUIDS 2020-07-07 [facility] 14:34:00 (07/07/20 9:34 [facility] AM) BODY FLUIDS 2020-07-07 Yellow [facility] 14:34:00 (07/07/20 9:34 [facility] AM) BODY FLUIDS 2020-07-07 Slight Cloudy [facility] 14:34:00 (07/07/20 9:34 [facility] AM) BODY FLUIDS 2020-07-07 Yellow [facility] 14:34:00 *ABN*(07/07/20 [facility] 9:34 AM) BODY FLUIDS 2020-07-07 484 [facility] 14:34:00 [facility] BODY FLUIDS 2020-07-07 4287 [facility] 14:34:00 [facility] BODY FLUIDS 2020-07-07 1 [facility] 14:34:00 [facility] BODY FLUIDS 2020-07-07 35 [facility] 14:34:00 [facility] BODY FLUIDS 2020-07-07 64 [facility] 14:34:00 [facility] BODY FLUIDS 2020-06-30 [facility] 14:10:00 (06/30/20 9:10 [facility] AM) BODY FLUIDS 2020-06-30 Yellow (06/30/20 [facility] 14:10:00 9:10 AM) [facility] BODY FLUIDS 2020-06-30 Slight Cloudy [facility] 14:10:00 (06/30/20 9:10 [facility] AM) BODY FLUIDS 2020-06-30 Yellow [facility] 14:10:00 *ABN*(06/30/20 [facility] 9:10 AM) BODY FLUIDS 2020-06-30 513 [facility] 14:10:00 [facility] BODY FLUIDS 2020-06-30 3784 [facility] 14:10:00 [facility] BODY FLUIDS 2020-06-30 2 [facility] 14:10:00 [facility] BODY FLUIDS 2020-06-30 40 [facility] 14:10:00 [facility] BODY FLUIDS 2020-06-30 56 [facility] 14:10:00 [facility] BODY FLUIDS 2020-06-30 2 [facility] 14:10:00 [facility] BODY FLUIDS 2020-06-23 Yellow (06/23/20 [facility] 15:15:00 10:15 AM) [facility] BODY FLUIDS 2020-06-23 Slight Cloudy [facility] 15:15:00 (06/23/20 10:15 [facility] AM) BODY FLUIDS 2020-06-23 Yellow [facility] 15:15:00 *ABN*(06/23/20 [facility] 10:15 AM) BODY FLUIDS 2020-06-23 295 [facility] 15:15:00 [facility] BODY FLUIDS 2020-06-23 2800 [facility] 15:15:00 [facility] BODY FLUIDS 2020-06-23 3 [facility] 15:15:00 [facility] BODY FLUIDS 2020-06-23 55 [facility] 15:15:00 [facility] BODY FLUIDS 2020-06-23 40 [facility] 15:15:00 [facility] BODY FLUIDS 2020-06-23 2 [facility] 15:15:00 [facility] BODY FLUIDS 2020-06-23 [facility] 15:15:00 (06/23/20 10:15 [facility] AM) BODY FLUIDS 2020-06-16 [facility] 20:51:48 (06/16/20 3:51 [facility] PM) BODY FLUIDS 2020-06-16 Yellow (06/16/20 [facility] 20:51:48 3:51 PM) [facility] BODY FLUIDS 2020-06-16 Moderate Cloudy [facility] 20:51:48 *ABN*(06/16/20 [facility] 3:51 PM) BODY FLUIDS 2020-06-16 395 [facility] 20:51:48 [facility] BODY FLUIDS 2020-06-16 3749 [facility] 20:51:48 [facility] BODY FLUIDS 2020-06-16 1 [facility] 20:51:48 [facility] BODY FLUIDS 2020-06-16 51 [facility] 20:51:48 [facility] BODY FLUIDS 2020-06-16 48 [facility] 20:51:48 [facility] BODY FLUIDS 2020-06-09 2930 [facility] 14:45:00 [facility] BODY FLUIDS 2020-06-09 442 [facility] 14:45:00 [facility] BODY FLUIDS 2020-06-09 3 [facility] 14:45:00 [facility] BODY FLUIDS 2020-06-09 47 [facility] 14:45:00 [facility] BODY FLUIDS 2020-06-09 50 [facility] 14:45:00 [facility] BODY FLUIDS 2020-06-09 Yellow (06/09/20 [facility] 14:45:00 9:45 AM) [facility] BODY FLUIDS 2020-06-09 Slight Cloud[facility] 14:45:00 (06/09/20 9:45 [facility] AM) BODY FLUIDS 2020-06-09 [facility] 14:45:00 (06/09/20 9:45 [facility] AM) BODY FLUIDS 2020-06-02 [facility] 14:29:00 (06/02/20 9:29 [facility] AM) BODY FLUIDS 2020-06-02 Yellow (06/02/20 [facility] 14:29:00 9:29 AM) [facility] BODY FLUIDS 2020-06-02 Clear (06/02/20 [facility] 14:29:00 9:29 AM) [facility] BODY FLUIDS 2020-06-02 Yellow [facility] 14:29:00 *ABN*(06/02/20 [facility] 9:29 AM) BODY FLUIDS 2020-06-02 502 [facility] 14:29:00 [facility] BODY FLUIDS 2020-06-02 2739 [facility] 14:29:00 [facility] BODY FLUIDS 2020-06-02 10 [facility] 14:29:00 [facility] BODY FLUIDS 2020-06-02 55 [facility] 14:29:00 [facility] BODY FLUIDS 2020-06-02 32 [facility] 14:29:00 [facility] BODY FLUIDS 2020-06-02 3 [facility] 14:29:00 [facility] BODY FLUIDS 2020-05-26 [facility] (05/26/20 [facility] 14:45:00 9:45 AM) [facility] BODY FLUIDS 2020-05-26 Yellow (05/26/20 [facility] 14:45:00 9:45 AM) [facility] BODY FLUIDS 2020-05-26 Moderate Cloudy [facility] 14:45:00 *ABN*(05/26/20 [facility] 9:45 AM) BODY FLUIDS 2020-05-26 672 [facility] 14:45:00 [facility] BODY FLUIDS 2020-05-26 1836 [facility] 14:45:00 [facility] BODY FLUIDS 2020-05-26 1 [facility] 14:45:00 [facility] BODY FLUIDS 2020-05-26 62 [facility] 14:45:00 [facility] BODY FLUIDS 2020-05-26 37 [facility] 14:45:00 [facility] BODY FLUIDS 2020-05-18 [facility] 14:20:00 (05/18/20 9:20 [facility] AM) BODY FLUIDS 2020-05-18 Yellow (05/18/20 [facility] 14:20:00 9:20 AM) [facility] BODY FLUIDS 2020-05-18 Slight Cloudy [facility] 14:20:00 (05/18/20 9:20 [facility] AM) BODY FLUIDS 2020-05-18 Yellow [facility] 14:20:00 *ABN*(05/18/20 [facility] 9:20 AM) BODY FLUIDS 2020-05-18 401 [facility] 14:20:00 [facility] BODY FLUIDS 2020-05-18 2308 [facility] 14:20:00 [facility] BODY FLUIDS 2020-05-18 4 [facility] 14:20:00 [facility] BODY FLUIDS 2020-05-18 13 [facility] 14:20:00 [facility] BODY FLUIDS 2020-05-18 81 [facility] 14:20:00 [facility] BODY FLUIDS 2020-05-18 2 [facility] 14:20:00 [facility] BODY FLUIDS 2020-05-12 [facility] 17:50:00 (05/12/20 12:50 [facility] PM) BODY FLUIDS 2020-05-12 Yellow (05/12/20 [facility] 17:50:00 12:50 PM) [facility] BODY FLUIDS 2020-05-12 Clear (05/12/20 [facility] 17:50:00 12:50 PM) [facility] BODY FLUIDS 2020-05-12 Yellow [facility] 17:50:00 *ABN*(05/12/20 [facility] 12:50 PM) BODY FLUIDS 2020-05-12 291 [facility] 17:50:00 [facility] BODY FLUIDS 2020-05-12 1134 [facility] 17:50:00 [facility] BODY FLUIDS 2020-05-12 3 [facility] 17:50:00 [facility] BODY FLUIDS 2020-05-12 70 [facility] 17:50:00 [facility] BODY FLUIDS 2020-05-12 27 [facility] 17:50:00 [facility] BODY FLUIDS 2020-05-05 [facility] 14:43:00 (05/05/20 9:43 [facility] AM) BODY FLUIDS 2020-05-05 Light Yellow [facility] 14:43:00 (05/05/20 9:43 [facility] AM) BODY FLUIDS 2020-05-05 Slight Cloudy [facility] 14:43:00 (05/05/20 9:43 [facility] AM) BODY FLUIDS 2020-05-05 Light Yellow [facility] 14:43:00 *ABN*(05/05/20 [facility] 9:43 AM) BODY FLUIDS 2020-05-05 222 [facility] 14:43:00 [facility] BODY FLUIDS 2020-05-05 2784 [facility] 14:43:00 [facility] BODY FLUIDS 2020-05-05 2 [facility] 14:43:00 [facility] BODY FLUIDS 2020-05-05 59 [facility] 14:43:00 [facility] BODY FLUIDS 2020-05-05 38 [facility] 14:43:00 [facility] BODY FLUIDS 2020-05-05 1 [facility] 14:43:00 [facility] BODY FLUIDS 2020-04-28 [facility] (04/28/20 [facility] 16:00:00 11:00 AM) [facility] BODY FLUIDS 2020-04-28 Light Yellow [facility] 16:00:00 (04/28/20 11:00 [facility] AM) BODY FLUIDS 2020-04-28 Slight Cloudy [facility] 16:00:00 (04/28/20 11:00 [facility] AM) BODY FLUIDS 2020-04-28 Light Yellow [facility] 16:00:00 *ABN*(04/28/20 [facility] 11:00 AM) BODY FLUIDS 2020-04-28 454 [facility] 16:00:00 [facility] BODY FLUIDS 2020-04-28 1513 [facility] 16:00:00 [facility] BODY FLUIDS 2020-04-28 2 [facility] 16:00:00 [facility] BODY FLUIDS 2020-04-28 50 [facility] 16:00:00 [facility] BODY FLUIDS 2020-04-28 45 [facility] 16:00:00 [facility] BODY FLUIDS 2020-04-28 3 [facility] 16:00:00 [facility] BODY FLUIDS 2020-04-14 [facility] 19:36:00 (04/14/20 2:36 [facility] PM) BODY FLUIDS 2020-04-14 Yellow (04/14/20 [facility] 19:36:00 2:36 PM) [facility] BODY FLUIDS 2020-04-14 Slight Cloudy [facility] 19:36:00 (04/14/20 2:36 [facility] PM) BODY FLUIDS 2020-04-14 Yellow [facility] 19:36:00 *ABN*(04/14/20 [facility] 2:36 PM) BODY FLUIDS 2020-04-14 161 [facility] 19:36:00 [facility] BODY FLUIDS 2020-04-14 1251 [facility] 19:36:00 [facility] BODY FLUIDS 2020-04-14 2 [facility] 19:36:00 [facility] BODY FLUIDS 2020-04-14 40 [facility] 19:36:00 [facility] BODY FLUIDS 2020-04-14 57 [facility] 19:36:00 [facility] BODY FLUIDS 2020-04-14 1 [facility] 19:36:00 [facility] BODY FLUIDS 2020-04-07 1315 [facility] 17:25:00 [facility] BODY FLUIDS 2020-04-07 126 [facility] 17:25:00 [facility] BODY FLUIDS 2020-04-07 2 [facility] 17:25:00 [facility] BODY FLUIDS 2020-04-07 57 [facility] 17:25:00 [facility] BODY FLUIDS 2020-04-07 40 [facility] 17:25:00 [facility] BODY FLUIDS 2020-04-07 1 [facility] 17:25:00 [facility] BODY FLUIDS 2020-04-07 [facility] 17:25:00 (04/07/20 12:25 [facility] PM) BODY FLUIDS 2020-04-07 Yellow (04/07/20 [facility] 17:25:00 12:25 PM) [facility] BODY FLUIDS 2020-04-07 Slight Cloudy [facility] 17:25:00 (04/07/20 12:25 [facility] PM) BODY FLUIDS 2020-04-07 Yellow [facility] 17:25:00 *ABN*(04/07/20 [facility] 12:25 PM) BODY FLUIDS 2020-03-31 [facility] (03/31/20 [facility] 14:45:00 9:45 AM) [facility] BODY FLUIDS 2020-03-31 Yellow (03/31/20 [facility] 14:45:00 9:45 AM) [facility] BODY FLUIDS 2020-03-31 Slight Cloudy [facility] 14:45:00 (03/31/20 9:45 [facility] AM) BODY FLUIDS 2020-03-31 Yellow [facility] 14:45:00 *ABN*(03/31/20 [facility] 9:45 AM) BODY FLUIDS 2020-03-31 410 [facility] 14:45:00 [facility] BODY FLUIDS 2020-03-31 1021 [facility] 14:45:00 [facility] BODY FLUIDS 2020-03-31 4 [facility] 14:45:00 [facility] BODY FLUIDS 2020-03-31 56 [facility] 14:45:00 [facility] BODY FLUIDS 2020-03-31 38 [facility] 14:45:00 [facility] BODY FLUIDS 2020-03-31 2 [facility] 14:45:00 [facility] BODY FLUIDS 2020-03-24 [facility] (03/24/20 [facility] 15:56:45 10:56 AM) [facility] BODY FLUIDS 2020-03-24 Light Yellow [facility] 15:56:45 (03/24/20 10:56 [facility] AM) BODY FLUIDS 2020-03-24 Slight Cloudy [facility] 15:56:45 (03/24/20 10:56 [facility] AM) BODY FLUIDS 2020-03-24 Light Yellow [facility] 15:56:45 *ABN*(03/24/20 [facility] 10:56 AM) BODY FLUIDS 2020-03-24 305 [facility] 15:56:45 [facility] BODY FLUIDS 2020-03-24 1968 [facility] 15:56:45 [facility] BODY FLUIDS 2020-03-24 2 [facility] 15:56:45 [facility] BODY FLUIDS 2020-03-24 72 [facility] 15:56:45 [facility] BODY FLUIDS 2020-03-24 26 [facility] 15:56:45 [facility] BODY FLUIDS 2020-03-17 [facility] 15:00:00 (03/17/20 10:00 [facility] AM) BODY FLUIDS 2020-03-17 Yellow (03/17/20 [facility] 15:00:00 10:00 AM) [facility] BODY FLUIDS 2020-03-17 Slight Cloudy [facility] 15:00:00 (03/17/20 10:00 [facility] AM) BODY FLUIDS 2020-03-17 Yellow [facility] 15:00:00 *ABN*(03/17/20 [facility] 10:00 AM) BODY FLUIDS 2020-03-17 295 [facility] 15:00:00 [facility] BODY FLUIDS 2020-03-17 1578 [facility] 15:00:00 [facility] BODY FLUIDS 2020-03-17 0 [facility] 15:00:00 [facility] BODY FLUIDS 2020-03-17 30 [facility] 15:00:00 [facility] BODY FLUIDS 2020-03-17 70 [facility] 15:00:00 [facility] BODY FLUIDS 2020-03-10 [facility] 14:05:00 (03/10/20 9:05 [facility]ian AM) BODY FLUIDS 2020-03-10 Light Yellow [facility] 14:05:00 (03/10/20 9:05 [facility] AM) BODY FLUIDS 2020-03-10 Slight Cloud[facility] 14:05:00 (03/10/20 9:05 [facility] AM) BODY FLUIDS 2020-03-10 Light Yellow [facility] 14:05:00 *ABN*(03/10/20 [facility] 9:05 AM) BODY FLUIDS 2020-03-10 316 [facility] 14:05:00 [facility] BODY FLUIDS 2020-03-10 2599 [facility] 14:05:00 [facility] BODY FLUIDS 2020-03-10 5 [facility] 14:05:00 [facility] BODY FLUIDS 2020-03-10 65 [facility] 14:05:00 [facility] BODY FLUIDS 2020-03-10 28 [facility] 14:05:00 [facility] BODY FLUIDS 2020-03-10 2 [facility] 14:05:00 [facility] BODY FLUIDS 2020-03-03 [facility] 14:00:00 (03/03/20 9:00 [facility] AM) BODY FLUIDS 2020-03-03 [place] 14:00:00 *ABN*(03/03/20 [facility] 9:00 AM) BODY FLUIDS 2020-03-03 Moderate Cloudy [facility] 14:00:00 *ABN*(03/03/20 [facility] 9:00 AM) BODY FLUIDS 2020-03-03 Yellow [facility] 14:00:00 *ABN*(03/03/20 [facility] 9:00 AM) BODY FLUIDS 2020-03-03 649 [facility] 14:00:00 [facility] BODY FLUIDS 2020-03-03 [id number] [facility] 14:00:00 [facility] BODY FLUIDS 2020-03-03 7 [facility] 14:00:00 [facility] BODY FLUIDS 2020-03-03 64 [facility] 14:00:00 [facility] BODY FLUIDS 2020-03-03 27 [facility] 14:00:00 [facility] BODY FLUIDS 2020-03-03 2 [facility] 14:00:00 [facility] BODY FLUIDS 2020-02-02 [facility] 14:50:00 (02/02/20 9:50 [facility] AM) BODY FLUIDS 2020-02-02 Yellow (02/02/20 [facility] 14:50:00 9:50 AM) [facility] BODY FLUIDS 2020-02-02 Clear (02/02/20 [facility] 14:50:00 9:50 AM) [facility] BODY FLUIDS 2020-02-02 Yellow [facility] 14:50:00 *ABN*(02/02/20 [facility] 9:50 AM) BODY FLUIDS 2020-02-02 122 [facility] 14:50:00 [facility] BODY FLUIDS 2020-02-02 2423 [facility] 14:50:00 [facility] BODY FLUIDS 2020-02-02 5 [facility] 14:50:00 [facility] BODY FLUIDS 2020-02-02 57 [facility] 14:50:00 [facility] BODY FLUIDS 2020-02-02 25 [facility] 14:50:00 [facility] BODY FLUIDS 2020-02-02 13 [facility] 14:50:00 [facility] [address]UID CELL [address]/DIFF 2020-01-13 16:49:00 Test Item Value Reference Range Interpretation Comme nts FLUID SOURCE (test code = SOURCEFL) ASCITES DESCRIPT FLUID TYPE FLUID COLOR (test code = COLFL) YELLOW DESCRIP. COLORLESS FLUID APPEARANCE (test code = APPFL) CLEAR DESCRIP. CLEAR FLUID WBC (test code = WBCFL) 68 #/mm3 0-0 H FLUID RBC (test code = RBCFL) 250 #/mm3 0-0 H FLUID POLY (test code = POLYFL) 8 % >0 FLUID LYMPHOCYTE (test code = LYMPHFL) 58 % 0-78 N FLUID MONOCYTE (test code = MONOFL) 34 % 0-71 N FLUID MACROPHAGE (test code = MACFL) MOD ON SCAN NONE FLUID MESOTHELIAL (test code = MESFL) FEW ON SCAN NONE FLUID COMMENT (test code = COMFL) 0%CREN INTERP NONE BODY FLUID CELL [id number] 15:23:00 Test Item Value Reference Range Interpretation Comments FLUID SOURCE (test code = ASCITES DESCRIPT FLUID TYPE SOURCEFL) FLUID COLOR (test code = YELLOW DESCRIP. COLORLESS COLFL) FLUID APPEARANCE (test code CLEAR DESCRIP. CLEAR = APPFL) FLUID WBC (test code = 68 #/mm3 0-0 H WBCFL) FLUID RBC (test code = 250 #/mm3 0-0 H RBCFL) FLUID COMMENT (test code = 0%CREN INTERP NONE COMFL) BODY FLUID CELL [id number] 14:19:00 Test Item Value Reference Range Interpretation Comments FLUID SOURCE (test code = ASCITES DESCRIPT FLUID TYPE SOURCEFL) FLUID COLOR (test code = YELLOW DESCRIP. COLORLESS COLFL) FLUID APPEARANCE (test code CLEAR DESCRIP. CLEAR = APPFL) FLUID WBC (test code = 68 #/mm3 0-0 H WBCFL) FLUID RBC (test code = 250 #/mm3 0-0 H RBCFL) FLUID COMMENT (test code = INTERP NONE COMFL) - USG NDL PLACEMENT (Bxg/Asp)2020-01-13 14:02:00 Name: NAKIA NELSON [facility] : 1945 Age/S: 74 / F [id number] [address] Unit #: [id number] Loc: [place] [address] Phys: Florinda Lentz MD Acct: [id number] Dis Date: Status: REG REF PHONE #: [phone] Exam Date: 01/13/2020 1245 FAX #: Reason: ASCITES EXAMS: CPT: [id number] USG NDL PLACEMENT (Bxg/Asp) 79860 EXAMINATION: IMAGE GUIDED PARACENTESIS x 2. LOCATION: S17. HISTORY: Recurrent ascites, abdominal distention, cirrhosis, request is made for paracentesis with fluid analysis. COMPARISON: None. SEDATION: The patient did not require conscious sedation forthe procedure. TECHNIQUE: The risks, benefits and alternatives were discussed and informed consent was obtained. Prior to beginning the procedure, [place] Protocol wasperformed to confirm the identity and the planned procedure. Maximum sterile barriers including cap, mask, hand hygiene, sterile gloves, sterile gown, large sterile drape and cutaneous antisepsis were used. The patient's abdomen was examined with ultrasound and a suitable pocket of ascitic fluid in the RLQ was identified. The skin overlying this area was anesthetized with 1% lidocaine. Using real-time ultrasound guidance, a 5F sheathed needle was advanced into the ascitic fluid. After approximately 4 L of ascites drained, patient stillhad significant amount of fluid in left hemiabdomen. After discussion, patient wished to proceed with left lower quadrant paracentesis. The patient's left hemiabdomen was examined with ultrasound and a suitable pocket of ascitic fluid in the LLQ was identified. The skin overlying this area was anesthetized with 1% lidocaine. Using real-time ultrasound guidance, a 5F sheathed needle was advanced into the ascitic fluid. Overall, 6650 cc of clear yellow fluid was drained. 50 g of albumin 25% was given intravenously during the procedure. Samples were sent for analysis. At the conclusion of the procedure the catheter was removed and a sterile dressing applied to the site. ESTIMATED BLOOD LOSS: Minimal. CONDITION: Stable. PAGE 1 Signed Report (CONTINUED) Name: NAKIA NELSON [facility] : 1945 Age/S: 74 / F [id number] [facility] Unit #: [id number] Loc: [place] [address] Phys: Florinda Lentz MD Acct: [id number] Dis Date: Status: REG REF PHONE #: [phone] Exam Date: 01/13/2020 6233 FAX #: Reason: ASCITES EXAMS: CPT: [id number] USG NDL PLACEMENT (Bxg/Asp) 75549 <Continued> DISCHARGED TO: Outpatient recovery then LTAC. FINDINGS: Ultrasound demonstrated a large amount of ascitic fluid. IMPRESSION:Successful image guided diagnostic and therapeutic paracentesis. at 1402 Reported and signed by: Spencer Aguirre M.D. CC: Florinda Lentz MD Technologist: Camila Thakur Trnflb Date/Time: 01/13/2020 (1402) [id number] PAGE 2 Signed Report Name: LATIA NELSON [place] : 1945 Age/S: 74 / F [id number] [address] Unit #: [id number] Loc: [place] [address] Phys: Florinda Lentz MD Acct: [id number] Dis Date: Status: REG REF PHONE #: [phone] Exam Date: 01/13/2020 1245 FAX #: Reason: ASCITES EXAMS: CPT: [id number] USG NDL PLACEMENT (Bxg/Asp) 66819 <Continued> Orig Print D/T: S: 01/13/2020 (1406)Probe: PAGE 3 Signed Report- USG NDL PLACEMENT (Bxg/Asp)2020-01-08 12:11:00 Name: NAKIA NELSON [place] : 1945 Age/S: 74 / F [id number] [address] Unit #: [id number] Loc: [place] [address] Phys: Varsha Gallardo MD Acct: [id number] Dis Date: Status: REG REF PHONE #: [phone] Exam Date: 01/08/2020 1030 FAX #: Reason: ASCITES EXAMS: CPT: [id number] USG NDL PLACEMENT (Bxg/Asp) 38700 EXAMINATION: IMAGE GUIDED PARACENTESIS. LOCATION: S17. HISTORY: Recurrent ascites, abdominal distention, cirrhosis, request is made for paracentesis. COMPARISON: None. SEDATION: The patient did not require conscious sedation for the procedure. TECHNIQUE: The risks, benefits and alternatives were discussed and informed consentwas obtained. Prior to beginning the procedure, [place] Protocol was performed to confirm the identity and the planned procedure. Maximum sterile barriers including cap, mask, hand hygiene, sterile gloves, sterile gown, large sterile drape and cutaneous antisepsis were used. The patient's abdomen was examined with ultrasound and a suitable pocket of ascitic fluid in the RUQ was identified. The skin overlying this area was anesthetized with 1% lido beba. Using real-time ultrasound guidance, a 5F sheathed needle was advanced into the ascitic fluid. Approximately 6000 cc of clear yellow fluid was drained. At the conclusion of the procedure the catheter was removed and a sterile dressing applied to the site. ESTIMATED BLOOD LOSS: Minimal. CONDITION: Stable. DISCHARGED TO: Outpatient recovery then LTAC. FINDINGS: Ultrasound demonstrated a largeamount of ascitic fluid. IMPRESSION: Successful image guided therapeutic paracentesis. Moderate amount of ascites remained after procedure. PAGE 1 Signed Report (CONTINUED) Name: NAKIA NELSON [place] : 1945 Age/S: 74 / F [address] [address] Unit #: [id number] Loc: [place] [address] Phys: Varsha Gallardo MD Acct: [id number] Dis Date: Status: REG REF PHONE #: [phone] Exam Date: 01/08/2020 1030 FAX #: Reason: ASCITES EXAMS: CPT: [id number] USG NDL PLACEMENT (Bxg/Asp) 70367 <Continued> at 1211 Reported and signed by: Spencer Aguirre M.D. CC: Varsha bar MD Technologist: RT Socorro(R),MAITE(AB) Trnscb Date/Time: 01/08/2020 (1211) [email or web address] PAGE 2 SignedReport Name: [place]IA [place] : 1945 Age/S: 74 / F [id number] [address] Unit #: [id number] Loc: [place] [address] Phys: Varsha Gallardo MD Acct: [id number] Dis Date: Status: REG REF PHONE #: [phone] Exam Date: 01/08/2020 1030 FAX #: Reason: ASCITES EXAMS: CPT: [id number] USG NDL PLACEMENT (Bxg/Asp) 43690 <Continued> Orig Print D/T: S: 01/08/2020 (0655) Probe: PAGE 3 Signed Report [id number] 18:13:00 Test Item Value Reference Range Interpretation Comments AMMONIA (test code = AMM) 37 mcMOL/L 11-32 H BODY [id number] 18:37:22Paracen (12/02/19 1:37 PM)[facility] [id number] 18:37:22Yellow (12/02/19 1:37 PM)[facility] FLUIDS 2019-12-02 18:37:22Slight Cloudy (12/02/19 1:37 PM)[facility] FLUIDS 2019-12-02 18:37:33316Migyxaag [facility] [id number] 18:37:423794Ghykiokg [facility] [id number] 18:37:223[facility] [id number] 18:37:2245[facility] [id number] 18:37:2252[facility] [id number] 19:42:55Paracen (11/09/19 1:42 PM)[facility] FLUIDS 2019-11-09 19:42:55Light Yellow (11/09/19 1:42 PM)[facility] FLU[facility] 2019-11-09 19:42:55Moderate Cloudy *ABN*(11/09/19 1:42 PM)[facility] [id number] 19:42:59805Qestjwwj [facility] [id number] 19:42:198851 [facility] [id number] 19:42:552[facility] FLUIDS 2019-11-09 19:42:5534[facility] [id number] 19:42:5564[facility] [id number] 17:03:27Paracen (10/29/19 11:03 AM)[facility] BODY [id number] 17:03:27Yellow (10/29/19 11:03 AM)[facility] [id number] 17:03:27Slight Cloudy (10/29/19 11:03 AM)[facility] [id number] 17:03:27Yellow *ABN*(10/29/19 11:03 AM)[facility] [id number] 17:03:2795[facility] [id number] 17:03:822829 [facility] [id number] 17:03:275[facility] FLUIDS 2019-10-29 17:03:2725[facility] [id number] 17:03:2722[facility] [id number] 17:03:2748[facility] [id number] 17:03:270.7[facility] [id number] 17:03:27Paracen *NA*(10/29/19 11:03 AM)[facility] [id number] 17:03:271.8[facility] [id number] 17:03:27Paracen *NA*(10/29/19 11:03 AM)[facility]
[2021-05-01] MEDS ORDERED: FENTANYL CITR 100 MCG/2 ML ONE (15:39)
[2021-05-01] MEDS ORDERED: ONDANSETRON 4 MG/2 ML VIAL ONE (15:41)
[2021-05-01 16:51] LABS: ALT/SGPT 22 U/L (12-78); AST/SGOT 35 U/L (15-37); Albumin 2.7 g/dL (3.4-5.0); Alkaline Phosphatase 117 U/L (45-117); BUN Blood Urea Nitrogen 20 mg/dL (7-18); Bicarbonate 21 mmol/L (21-32); Bilirubin Direct 0.2 mg/dL (0-0.2); Bilirubin Total 0.7 mg/dL (0.2-1.0); Glucose Level 172 mg/dL (74-106); Magnesium 1.8 mg/dL (1.8-2.4); NT PRO-BNP 188 pg/mL (<450); Potassium 4.5 mmol/L (3.5-5.1); Protein, Total 6.2 g/dL (6.4-8.2); Sodium Level 133 mmol/L (136-145); Troponin (Emerg Dept Use Only) < 0.02 ng/mL (0.0-0.045)
--- NOTE | 2021-05-01 17:15 | RAD REPORT ---
EXAM DESCRIPTION: RAD - Femur Left - 05/01/2021 4:57 pm CLINICAL HISTORY: fall;Pain COMPARISON: No comparisonsNo comparisonsPelvis dated 05/01/2021 FINDINGS: Left subcapital femoral neck fracture which is displaced. No other femur fracture is seen. Osteopenia. IMPRESSION: Displaced left subcapital femoral neck fracture. No other femur fracture identified.
--- NOTE | 2021-05-01 17:18 | RAD REPORT ---
EXAM DESCRIPTION: RAD - Pelvis - 05/01/2021 4:57 pm CLINICAL HISTORY: fall COMPARISON: No comparisons FINDINGS: Displaced left subcapital femoral neck fracture. Osteopenia. No other fractures are identi fied. There is superior and lateral displacement of the distal fragment. IMPRESSION: Displaced left subcapital femoral neck fracture.
--- NOTE | 2021-05-01 17:20 | ER ---
Nurse's Notes [facility] Name: Nola Quijano Age: 75 yrs Sex: Female : 1945 Arrival Date: 05/01/2021 Time: 15:03 Bed 24 Private MD: Diagnosis: Displaced fracture of base of neck of left femur;Fall on same level from slipping, tripping and stumbling with subsequent striking against object Presentation: 05/01 15:03 Chief complaint: EMS states: fell in bathroom about 90 minutes ago, pain to left hip , iw couldn't get herself off the floor. 15:03 Acuity: HECTOR 3 iw 15:03 Method Of Arrival: [facility]: [facility] iw 15:35 Coronavirus screen: At this time, the client does not indicate any symptoms associated zb with coronavirus-19. Ebola Screen: No symptoms or risks identified at this time. Initial Sepsis Screen: Does the patient meet any 2 criteria? No. Patient's initial sepsis screen is negative. Does the patient have a suspected source of infection? No. Patient's initial sepsis screen is negative. Risk Assessment: Do you want to hurt yourself or someone else? Patient reports no desire to harm self or others. Onset of symptoms was May 01, 2021. Triage Assessment: 15:38 General: Appears uncomfortable, slender, Behavior is anxious, fussy. Pain: Complains of zb pain in left hip and left leg Pain currently is 10 out of 10 on a pain scale. Quality of pain is described as crampy, sharp, Pain began suddenly, 1 hour ago. Alleviated by medications, Aggravated by increased activity, repositioning, weight bearing. Neuro: Level of Consciousness is awake, alert, obeys commands, Oriented to person, place, time, Weakness in left leg(s). Cardiovascular: Patient's skin is warm and dry. Respiratory: Airway is patent. Derm: Skin is fragile, is thin, has skin tears on generalized skin tear on bilateral arms and legs. Musculoskeletal: Range of motion: limited in left hip and left knee. Historical: - Allergies: 15:34 PENICILLINS; zb - Home Meds: 15:34 Levemir FlexTouch 100 unit/mL (3 mL) subcutaneous inpn 30 units nightly [Active]; Lasix zb 40 mg Oral tab 1 tab once daily [Active]; pantoprazole 40 mg oral grps 1 packet once daily [Active]; - PMHx: 15:34 "liver problem"; Cirrhosis; Diabetes - NIDDM; Hypertension; zb - PSHx: 15:34 Total abdominal hysterectomy; Appendectomy; Cholecystectomy; zb - Immunization history:: Adult Immunizations up to date, Client reports receiving the 2nd dose of the Covid vaccine, Date received: 2020. - Social history:: Smoking status: Patient denies any tobacco usage or history of. - Immunization history: Last tetanus immunization: < 5 years ago. Screenin:40 Abuse screen: Denies threats or abuse. Denies injuries from another. Nutritional zb screening: No deficits noted. Tuberculosis screening: No symptoms or risk factors identified. Fall Risk Fall in past 12 months (25 points). Secondary diagnosis (15 points) impaired mobility, IV access (20 points). Ambulatory Aid- None/Bed Rest/Nurse Assist (0 pts). Gait- Normal/Bed Rest/Wheelchair (0 pts) Mental Status- Oriented to own ability (0 pts). Total Carbone Fall Scale indicates High Risk Score (45 or more points). Fall prevention measures have been instituted. Side Rails Up X 2 Placed Close to Nursing Station Frequent Obs/Assessments Occuring As available patient and family educated on Fall Prevention Program and Strategies. Assessment: 16:45 Reassessment: See triage assessment. zb 18:38 Reassessment: Patient appears in no apparent distress at this time. Patient and/or zb family updated on plan of care and expected duration. Pain level reassessed. Patient is alert, oriented x 3, equal unlabored respirations, skin warm/dry/pink. patient lying down at this time. no c/o. 19:39 Reassessment: Patient appears in no apparent distress at this time. Patient and/or zb family updated on plan of care and expected duration. Pain level reassessed. Patient is alert, oriented x 3, equal unlabored respirations, skin warm/dry/pink. repositioned. 20:39 Reassessment: Patient appears in no apparent distress at this time. Patient and/or zb family updated on plan of care and expected duration. Pain level reassessed. Patient is alert, oriented x 3, equal unlabored respirations, skin warm/dry/pink. 21:39 Reassessment: Patient appears in no apparent distress at this time. Patient and/or zb family updated on plan of care and expected duration. Pain level reassessed. Patient is alert, oriented x 3, equal unlabored respirations, skin warm/dry/pink. 22:00 Reassessment: Patient appears in no apparent distress at this time. Patient and/or zb family updated on plan of care and expected duration. Pain level reassessed. Patient is alert, oriented x 3, equal unlabored respirations, skin warm/dry/pink. 23:00 Reassessment: Patient appears in no apparent distress at this time. Patient and/or zb family updated on plan of care and expected duration. Pain level reassessed. Patient is alert, oriented x 3, equal unlabored respirations, skin warm/dry/pink. c/o pain. notified hospitlist. given medication. Vital Signs: 15:35 BP 111 / 70; Pulse 78; Resp 16; Temp 98.1; Pulse Ox 95% ; Weight 51.71 kg; Height 5 ft. zb 5 in. (165.10 cm); Pain 10/10; 16:36 BP 104 / 72; Pulse 81; Resp 16; Pulse Ox 96% on R/A; zb 17:15 BP 112 / 73; Pulse 73; Resp 16; Pulse Ox 100% on R/A; zb 18:38 BP 105 / 74; Pulse 71; Resp 16; Pulse Ox 95% on R/A; zb 19:30 BP 92 / 80; Pulse 82; Resp 16; Pulse Ox 97% on R/A; zb 20:15 BP 92 / 80; Pulse 82; Resp 16; Pulse Ox 97% on R/A; zb 21:03 BP 102 / 60; Pulse 88; Resp 16; Pulse Ox 94% on R/A; zb 15:35 Body Mass Index 18.97 (51.71 kg, 165.10 cm) b ED Course: 15:03 Patient arrived in ED. iw 15:03 EKG completed in triage. Results shown to MD. zb 15:04 Triage completed. iw 15:06 Annika Cowan, CARLY is Primary Nurse. zb 15:08 Cuauhtemoc Sierra PA is PHCP. cp 15:08 Kvng Angelo MD is Attending Physician. cp 16:44 Patient has correct armband on for positive identification. Fall risk band placed. Bed zb in low position. Call light in reach. Side rails up X2. 16:44 Inserted saline lock: 22 gauge in right forearm, using aseptic technique. Maintain EMS zb IV. Dressing intact. Good blood return noted. Site clean \\T\\ dry. Gauge \\T\\ site: 22 RAC . IV Flushed right antecubital. 16:57 XRAY Chest (1 view) In Process Unspecified. EDMS 16:57 Femur Left XRAY In Process Unspecified. EDMS 16:57 Pelvis XRAY In Process Unspecified. EDMS 17:22 initiated transfer to [facility], be denied due to [place] [facility] being on trauma divert. bd 17:23 initiated transfer to [facility]. bd 17:29 pt denied at [facility] due to not having capacity. per Dolores. bd 17:34 initiated transfer to [facility]. bd 17:36 pt denied at [facility] due to no beds available at any [facility] hospital per edita saini.bd 17:38 initiated transfer to [facility]. bd 17:46 denied at [facility] due to no beds available at any [facility] hospital. per anu. bd 17:56 [facility], [facility], per Jas. bd 18:12 initiated transfer to [facility], pt denied due to no beds available per Jaja Smith.bd 18:36 Sammy Graves MD is Hospitalizing Provider. cp Administered Medications: 15:30 Drug: fentaNYL (PF) 25 mcg {Note: RASS +2.} Route: IVP; Site: right antecubital; zb 15:41 Follow up: Response: No adverse reaction; Pain is decreased; RASS: Restless (+1) zb 15:30 Drug: Zofran (Ondansetron) 4 mg Route: IVP; Site: right antecubital; zb 16:00 Follow up: Response: No adverse reaction zb 18:10 Drug: fentaNYL (PF) 25 mcg {Note: RASS +1.} Route: IVP; Site: right antecubital; zb 18:40 Follow up: Response: No adverse reaction; Pain is decreased; RASS: Alert and Calm (0) zb 20:19 Drug: fentaNYL (PF) 25 mcg {Note: RASS +1.} Route: IVP; Site: left forearm; zb 21:00 Follow up: Response: No adverse reaction; Pain is decreased; RASS: Alert and Calm (0) abigail Outcome: 17:19 ER care complete, transfer ordered by . mick 18:46 Decision to Hospitalize by Provider. cp 05/02 00:10 Admitted to Med/surg accompanied by nurse, via wheelchair, room 211, Report called to abigail Siddiqi RN Condition: stable Instructed on the need for admit. 00:18 Patient left the ED. abigail Signatures: Dispatcher [employer] EDMS Sanjana Hatfield Irene, RN RN Cuauhtemoc Pedraza PA PA cp Brown, Zipporah RN CARLY hayes
--- NOTE | 2021-05-01 17:20 | EDPHYS ---
Physician Documentation [facility] Name: Nola Quijano Age: 75 yrs Sex: Female : 1945 Arrival Date: 05/01/2021 Time: 15:03 Bed 24 Private MD: ED Physician Kvng Angelo HPI: 05/01 15:45 This 75 yrs old Female presents to ER via EMS with complaints of Fall Injury. cp 15:45 Details of fall: The patient fell from an upright position, while standing, and struck cp a tile surface. 15:45 Onset: The symptoms/episode began/occurred just prior to arrival. Associated injuries: cp The patient sustained left upper leg, decreased range of motion, painful injury. Severity of symptoms: in the emergency department the symptoms have improved, mildly. Patient reports fall to floor in bathroom of home after attempting to sit on toilet. Patient c/o pain to left hip and left upper leg. Historical: - Allergies: 15:34 PENICILLINS; zb - Home Meds: 15:34 Levemir FlexTouch 100 unit/mL (3 mL) subcutaneous inpn 30 units nightly [Active]; Lasix zb 40 mg Oral tab 1 tab once daily [Active]; pantoprazole 40 mg oral grps 1 packet once daily [Active]; - PMHx: 15:34 "liver problem"; Cirrhosis; Diabetes - NIDDM; Hypertension; zb - PSHx: 15:34 Total abdominal hysterectomy; Appendectomy; Cholecystectomy; zb - Immunization history:: Adult Immunizations up to date, Client reports receiving the 2nd dose of the Covid vaccine, Date received: 2020. - Social history:: Smoking status: Patient denies any tobacco usage or history of. - Immunization history: Last tetanus immunization: < 5 years ago. ROS: 15:50 Constitutional: Negative for body aches, chills, fever, poor PO intake. cp 15:50 Eyes: Negative for injury, pain, redness, and discharge. cp 15:50 ENT: Negative for ear pain, sore throat, difficulty swallowing, difficulty handling secretions. 15:50 Neck: Negative for pain with movement, pain at rest, stiffness. 15:50 Cardiovascular: Negative for chest pain, edema, palpitations. 15:50 Respiratory: Negative for cough, shortness of breath, wheezing. 15:50 Abdomen/GI: Negative for abdominal pain, nausea, vomiting, and diarrhea. 15:50 Back: Negative for pain at rest, pain with movement. 15:50 MS/extremity: Positive for decreased range of motion, pain, of the left hip and left upper leg, Negative for deformity, paresthesias. 15:50 Skin: Positive for multiple skin tears, Negative for cellulitis, rash. 15:50 Neuro: Negative for altered mental status, dizziness, headache, loss of consciousness, syncope, weakness. 15:50 All other systems are negative. Exam: 15:55 Constitutional: The patient appears in no acute distress, alert, awake, cp non-diaphoretic, non-toxic, well developed, frail, in obvious pain. 15:55 Head/Face: Normocephalic, atraumatic. cp 15:55 Eyes: Pupils: equal, round, and reactive to light and accomodation, Extraocular movements: intact throughout, Conjunctiva: normal, no exudate, no injection, Sclera: no appreciated abnormality, Lids and lashes: appear normal, bilaterally. 15:55 ENT: External ear(s): are unremarkable, Ear canal(s): are normal, clear, TM's: dullness, bilaterally, Nose: is normal, Mouth: Lips: dry, Oral mucosa: moist, Posterior pharynx: Airway: no evidence of obstruction, patent. 15:55 Neck: C-spine: vertebral tenderness, is not appreciated, crepitus, is not appreciated, ROM/movement: is normal, is supple, without pain, no range of motions limitations. 15:55 Chest/axilla: Inspection: normal, Palpation: is normal, no crepitus, no tenderness. 15:55 Cardiovascular: Rate: normal, Rhythm: regular, Edema: is not appreciated, JVD: is not appreciated. 15:55 Respiratory: the patient does not display signs of respiratory distress, Respirations: normal, no use of accessory muscles, no retractions, labored breathing, is not present, Breath sounds: are clear throughout, no decreased breath sounds, no stridor, no wheezing. 15:55 Abdomen/GI: Inspection: distension, that is moderate, in the abdomen diffusely, Bowel sounds: active, all quadrants, Palpation: abdomen is soft and non-tender, in all quadrants, Hernia: noted in the umbilical area. 15:55 Back: vertebral tenderness, is not appreciated. 15:55 Musculoskeletal/extremity: Extremities: grossly normal except: noted in the left hip and left upper leg: decreased ROM, pain, tenderness, ROM: limited passive range of motion due to pain, in the left hip, Pulses: noted to be 2+ in the right dorsalis pedis artery and left dorsalis pedis artery, the left hip Severe pain noted. 15:55 Skin: multiple skin tears noted on upper extremities. 15:55 Neuro: Orientation: to person, place \\T\\ time. Mentation: is normal, Sensation: no obvious gross deficits. 16:57 ECG was reviewed by the Attending Physician. cp Vital Signs: 15:35 BP 111 / 70; Pulse 78; Resp 16; Temp 98.1; Pulse Ox 95% ; Weight 51.71 kg; Height 5 ft. zb 5 in. (165.10 cm); Pain 10/10; 16:36 BP 104 / 72; Pulse 81; Resp 16; Pulse Ox 96% on R/A; zb 17:15 BP 112 / 73; Pulse 73; Resp 16; Pulse Ox 100% on R/A; zb 18:38 BP 105 / 74; Pulse 71; Resp 16; Pulse Ox 95% on R/A; zb 19:30 BP 92 / 80; Pulse 82; Resp 16; Pulse Ox 97% on R/A; zb 20:15 BP 92 / 80; Pulse 82; Resp 16; Pulse Ox 97% on R/A; zb 21:03 BP 102 / 60; Pulse 88; Resp 16; Pulse Ox 94% on R/A; zb 15:35 Body Mass Index 18.97 (51.71 kg, 165.10 cm) zb MDM: 15:12 Patient medically screened. cp 16:00 Differential diagnosis: closed head injury, contusion, fracture, laceration, multiple cp trauma. 17:18 Data reviewed: vital signs, nurses notes, radiologic studies, plain films. cp 18:29 ED course: Unable to transfer patient to any facility in the [place] area. Consulted rn with Dr. Bauman who is willing to help us out and consult on patient even though he is not on-call if GI can evaluate patient, consult on patient and give preop clearance. Cuauhtemoc thakkar will contact Dr. Zelaya and confirmed this as well as call Dr. Bauman back and let him know.. 18:58 Physician consultation: Eliceo Zelaya MD was called at 18:40, was contacted at 18:40, regarding consult, patient's condition, and will see patient tomorrow, and request interventional radiology for paracentesis in morning. 19:00 Counseling: I had a detailed discussion with the patient and/or guardian regarding: the cp historical points, exam findings, and any diagnostic results supporting the discharge/admit diagnosis, lab results, radiology results, the need for further work-up and treatment in the hospital. 19:00 Response to treatment: the patient's symptoms have markedly improved after treatment. Physician consultation: Alphonso HARDY regarding admission, to the telemetry unit. 08 15:38 Order name: Basic Metabolic Panel cp 05/01 15:38 Order name: CBC with Diff cp 05/01 15:38 Order name: LFT's cp 05/01 15:38 Order name: Magnesium cp 05/01 15:38 Order name: NT PRO-BNP; Complete Time: 17:53 cp 05/01 15:38 Order name: PT-INR; Complete Time: 17:53 cp 05/01 15:38 Order name: Troponin (emerg Dept Use Only); Complete Time: 17:53 cp 05/01 15:38 Order name: Urine Microscopic Only; Complete Time: 17:53 cp 05/01 15:38 Order name: Basic Metabolic Panel; Complete Time: 17:53 EDMS 05/01 15:38 Order name: CBC with Automated Diff EDMS 05/01 15:38 Order name: Liver (Hepatic) Function; Complete Time: 17:53 EDMS 05/01 15:39 Order name: Magnesium; Complete Time: 17:53 EDMS 05/01 17:09 Order name: COVID-19 : Document "Date of Symptom Onset" if Symptomatic. bd 05/01 15:38 Order name: XRAY Chest (1 view); Complete Time: 17:53 cp 05/01 15:38 Order name: EKG; Complete Time: 15:39 cp 05/01 15:38 Order name: Femur Left XRAY; Complete Time: 17:53 cp 05/01 15:38 Order name: Pelvis XRAY; Complete Time: 17:53 cp 05/01 17:45 Order name: CBC Smear Scan EDMS 05/01 17:51 Order name: Urine Culture EDMS 05/01 18:16 Order name: Urine Dipstick-Ancillary; Complete Time: 18:18 EDMS 05/01 18:35 Order name: Type And Screen cp 05/01 18:35 Order name: Ptt, Activated cp 05/01 19:42 Order name: Glucose, Ancillary Testing EDMS 05/01 20:20 Order name: SARS-COV-2 RT PCR EDCO 05/01 15:38 Order name: Cardiac monitoring; Complete Time: 18:11 cp 05/01 15:38 Order name: EKG - Nurse/Tech; Complete Time: 18:11 cp 05/01 15:38 Order name: IV Saline Lock; Complete Time: 18:11 cp 05/01 15:38 Order name: Labs collected and sent; Complete Time: 18:11 cp 05/01 15:38 Order name: O2 Per Protocol; Complete Time: 18:11 cp 05/01 15:38 Order name: O2 Sat Monitoring; Complete Time: 18:11 cp 05/01 15:38 Order name: Urine Dipstick-Ancillary (obtain specimen); Complete Time: 18:11 cp 05/01 15:38 Order name: Davis; Complete Time: 18:11 cp 05/01 21:06 Order name: CONS Physician Consult EDMS EC:57 Rate is 85 beats/min. Rhythm is regular. QRS interval is normal. QT interval is normal. cp Interpreted by me. Reviewed by me. Administered Medications: 15:30 Drug: fentaNYL (PF) 25 mcg {Note: RASS +2.} Route: IVP; Site: right antecubital; zb 15:41 Follow up: Response: No adverse reaction; Pain is decreased; RASS: Restless (+1) zb 15:30 Drug: Zofran (Ondansetron) 4 mg Route: IVP; Site: right antecubital; zb 16:00 Follow up: Response: No adverse reaction zb 18:10 Drug: fentaNYL (PF) 25 mcg {Note: RASS +1.} Route: IVP; Site: right antecubital; zb 18:40 Follow up: Response: No adverse reaction; Pain is decreased; RASS: Alert and Calm (0) zb 20:19 Drug: fentaNYL (PF) 25 mcg {Note: RASS +1.} Route: IVP; Site: left forearm; zb 21:00 Follow up: Response: No adverse reaction; Pain is decreased; RASS: Alert and Calm (0) zb Disposition: 18:48 Co-signature as Attending Physician, Kvng Angelo MD I agree with the assessment and rn plan of care. PA/SPECIAL LIBRARY LIBRARIAN's history reviewed, patient interviewed, and examined. HPI: -year-old female status post fall and left hip injury. Unable to get up from floor. Moderate pain. My personal exam of patient reveals: Mild shortening of left lower extremity with painful even minor range of motion of affected hip. I agree with assessment and care plan and confirm the diagnosis (es) above. Disposition Summary: 05/01/21 18:46 Hospitalization Ordered Hospitalization Status: Inpatient Admission cp Provider: Sammy Graves cp Location: Telemetry/MedSurg (Inpatient) cp Condition: Stable(05/01/21 18:46) cp Problem: new(05/01/21 18:46) cp Symptoms: have improved(05/01/21 18:46) cp Bed/Room Type: Standard cp Room Assignment: 211(05/01/21 23:20) cg Diagnosis - Displaced fracture of base of neck of left femur(05/01/21 18:46) cp - Fall on same level from slipping, tripping and stumbling with subsequent striking cp against object(05/01/21 18:47) Forms: - Medication Reconciliation Form cp - SBAR form cp Signatures: Dispatcher [employer] EDKvng Malloy MD MD rn Page, Corey, PA PA cp Graciela Thakur RN RN Annika Cowan RN RN zb Corrections: (The following items were deleted from the chart) 18:35 17:19 Doctor cp cp 18:35 17:19 [facility] cp cp 18:35 17:19 Higher level of care cp cp 18:35 17:19 Stable cp cp 18:35 17:19 new cp cp 18:35 17:19 have improved cp cp 18:35 17:19 Displaced fracture of base of neck of left femur cp cp 18:35 17:19 Fall on same level from slipping, tripping and stumbling with subsequent striking cp against object cp 19:21 17:09 CORONAVIRUS ordered. EDMS EDMS 19:21 17:19 CORONAVIRUS+MR.LAB.BRZ ordered. EDMS EDMS 23:20 18:46 cp cg
--- NOTE | 2021-05-01 17:21 | RAD REPORT ---
EXAM DESCRIPTION: RAD - Chest Single View - 05/01/2021 4:57 pm CLINICAL HISTORY: left hip pain COMPARISON: Chest Single View dated 02/10/2020; Chest Single View dated 01/26/2020; Chest Pa And Lat (2 Views) dated 06/12/2017; CHEST SINGLE VIEW dated 10/05/2015 FINDINGS: Linear scarring in the right mid lung. No edema or consolidation. The heart size is within normal limits.No acute osseous abnormality. No significant pleural effusions or pneumothorax. IMPRESSION: No acute cardiopulmonary disease.
[2021-05-01 17:39] LABS: Protime INR 1.29
[2021-05-01 17:40] LABS: Absolute Lymphocytes (CBC) 0.5 K/uL (0.7-4.9); Basophils % 0.6 % (0-1.3); Hematocrit 27.8 % (36.0-45.0); Lymphocytes % 9.7 % (15.3-44.8); MPV 8.4 fL (7.6-11.3); RBC Red Blood Cell Count 4.01 M/uL (3.86-4.86)
[2021-05-01 17:50] LABS: Urine Bacteria 20-50 /HPF (<20); Urine Mucus 1+ /HPF (NONE SEEN); Urine RBC <5 /HPF (NONE SEEN)
[2021-05-01 18:16] LABS: Urine Blood Negative (Negative); Urine Glucose Negative (Negative); Urine Protein Negative (Negative); Urine Specific Gravity 1.025 (1.005-1.030)
[2021-05-01 18:25] LABS: Anisocytosis 1+; Blood Morphology Comment NOTED (NOT SEEN); Platelet Estimate ADEQ; Poikilocytosis 2+; White Blood Cell Scan OK (OK)
[2021-05-01] MEDS ORDERED: ONDANSETRON 4 MG/2 ML VIAL IV PRN (23:43)
[2021-05-01] MEDS ORDERED: ACETAMINOPHEN 500 MG TAB PO PRN (23:43)
--- NOTE | 2021-05-01 23:43 | P.HP ---
Certification for Inpatient Patient admitted to: Inpatient With expected LOS: >2 Midnights Patient will require the following post-hospital care: None Practitioner: I am a practitioner with admitting privileges, knowledge of patient current condition, hospital course, and medical plan of care. Services: Services provided to patient in accordance with Admission requirements found in Title 42 Section 412.3 of the Code of Federal Regulations Patient History Date of Service: 05/01/21 Reason for admission: hip fracture History of Present Illness: Ms. Quijano is a 75 yo F with cirrhosis, DM, HTN, anemia and HLD who presents after a fall. She tried to sit down on the toilet and missed and fell to the ground. She crawled to her living room to her cell phone to call the ambulance. She says she is having 'real bad pain.' Imaging showed displaced left subcapital femoral neck fracture with no other femur fracture identified. She also reports diarrhea for the past 4 days, pruritus, and polyuria. She says her fluid pills were discontinued for the past 5 weeks. On Saturday, she saw her fisher trot line (Dr. Coppola) and had 6L of fluid removed from her abdomen. She has an umbilical hernia which her doctor says she is not a surgical candidate for due to her age. H/H 8.4, MCV 69.3, Na 133, BUN 20, GFR 80, Glu 168. Nitrite, WBC, and bacteria + in urine. Received 1L fluid bolus in ED and a total of 75 mcg of fentanyl. Allergies Penicillins Allergy (Verified 01/27/20 02:21) Anaphylaxis Home Medications: Furosemide [Lasix*] 80 mg PO DAILY 04/04/14 Propranolol [Inderal*] 20 mg PO DAILY 04/04/14 Spironolactone [Aldactone] 100 mg PO BID 04/04/14 Insulin Detemir [Levemir Flextouch] 10 unit SQ DAILY WITH BREAKFAST 05/13/19 Lactobacillus Acidophilus [Probiotic Acidophilus] 1 tab PO BID 01/27/20 Multivit,Ther Iron,Ca,FA & Min [Centrum Tablet*] 1 tab PO DAILY 01/27/20 Pantoprazole [Protonix Tab*] 40 mg PO BID 01/27/20 Tramadol HCl [Ultram] 50 mg PO BEDTIME PRN 01/27/20 Nitrofurantoin Monohyd/M-Cryst [Macrobid 100 mg Capsule] 100 mg PO Q6H #20 capsule 02/02/20 Midodrine HCl [Proamatine*] 5 mg PO TID #90 tab 02/11/20 Nitrofuran Macro [Macrobid*] 100 mg PO BIDWM #14 cap 02/11/20 - Past Medical/Surgical History Diabetic: Yes -: DM -: HTN -: Cirrhosis (questionable) -: Anemia -: Hyperlipidemia -: Hysterectomy -: Cholecystectomy -: Tonsillectomy - Social History Smoking Status: Former smoker Alcohol use: No CD- Drugs: No Caffeine use: Yes Place of Residence: Home Review of Systems 10-point ROS is otherwise unremarkable Gastrointestinal: Diarrhea Genitourinary: Frequency Musculoskeletal: Leg Pain, As per HPI Physical Examination - Physical Exam General: Alert, In no apparent distress, Oriented x3, Cooperative, Cachectic HEENT: Atraumatic, PERRLA, Mucous membr. moist/pink, EOMI, Sclerae nonicteric Neck: Supple, 2+ carotid pulse no bruit, No LAD, Without JVD or thyroid abnormality Respiratory: Clear to auscultation bilaterally, Normal air movement Cardiovascular: Regular rate/rhythm, Normal S1 S2 Gastrointestinal: Normal bowel sounds, No tenderness, No masses, No rebound, No guarding, Ascites Musculoskeletal: No clubbing, No contractures, No erythema, No warmth, Swelling, Tenderness Integumentary: No rashes, Skin breakdown Neurological: Normal speech, Normal strength at 5/5 x4 extr, Normal tone, Sensation intact, Cranial nerves 3-12 intact, Normal affect Lymphatics: No axilla or inguinal lymphadenopathy - Studies Laboratory Data (last 24 hrs) 05/01/21 17:25: APTT 29.4 05/01/21 17:25: PT 14.9 H, INR 1.29 05/01/21 17:25: WBC 5.40, Hgb 8.4 L, Hct 27.8 L, Plt Count 178 05/01/21 16:14: Sodium 133 L, Potassium 4.5, BUN 20 H, Creatinine 0.71, Glucose 172 H, Magnesium 1.8, Total Bilirubin 0.7, AST 35, ALT 22, Alkaline Phosphatase 117 Assessment and Plan - Problems (Diagnosis) (1) Hip fracture Current Visit: Yes Status: Acute Qualifiers: Encounter type: initial encounter Fracture type: closed Laterality: left Qualified Code(s): S72.002A - Fracture of unspecified part of neck of left femur, initial encounter for closed fracture (2) Anemia Current Visit: Yes Status: Chronic Qualifiers: Anemia type: unspecified type Qualified Code(s): D64.9 - Anemia, unspecified (3) Ascites of liver Current Visit: No Status: Chronic (4) Cirrhosis of liver Current Visit: No Status: Chronic Qualifiers: Hepatic cirrhosis type: unspecified hepatic cirrhosis Ascites presence: with ascites Qualified Code(s): K74.60 - Unspecified cirrhosis of liver; R18.8 - Other ascites (5) Diabetes mellitus Current Visit: No Status: Chronic Qualifiers: Diabetes mellitus type: type 2 Diabetes mellitus detention insulin use: 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 Diabetes mellitus complication status: without complication Qualified Code(s): E11.9 - Type 2 diabetes mellitus without complications (6) Hyperlipidemia Current Visit: No Status: Chronic Qualifiers: Hyperlipidemia type: unspecified Qualified Code(s): E78.5 - Hyperlipidemia, unspecified (7) Status post fall Current Visit: No Status: Acute (8) UTI (urinary tract infection) Current Visit: No Status: Acute Qualifiers: Urinary tract infection type: site unspecified Hematuria presence: without hematuria Qualified Code(s): N39.0 - Urinary tract infection, site not specified - Plan orthopedic surgery consulted, GI consulted paracentesis scheduled for the AM NPO, SCDs pain management as needed IV ceftriaxone daily social work consulted, may need placement anemia workup pending will reconcile and continue home medications Discharge Plan: LTAC Plan to discharge in: 72 Hours - Advance Directives Does patient have a Living Will: No Does patient have a Durable POA for Healthcare: Yes - Code Status/Comfort Care Code Status Assessed: Yes (full code ) Critical Care: No Time Spent Managing Pts Care (In Minutes): 70
[2021-05-02] MEDS: FENTANYL CITR 100 MCG/2 ML IV PRN ×3 (00:16→08:31)
[2021-05-02 01:13] VITALS: BMI 21.0
[2021-05-02 05:51] LABS: Absolute Lymphocytes (CBC) 0.4 K/uL (0.7-4.9); Basophils % 1.3 % (0-1.3); Hematocrit 23.7 % (36.0-45.0); Lymphocytes % 11.6 % (15.3-44.8); MPV 8.2 fL (7.6-11.3); RBC Red Blood Cell Count 3.44 M/uL (3.86-4.86)
[2021-05-02 06:14] LABS: Albumin 2.5 g/dL (3.4-5.0); Ferritin 13.1 ng/mL (8-388); Magnesium 1.7 mg/dL (1.8-2.4); Phosphorus 2.8 mg/dL (2.5-4.9); Potassium 4.3 mmol/L (3.5-5.1); Protein, Total 5.8 g/dL (6.4-8.2)
[2021-05-02 06:23] LABS: Thyroid Stimulating Hormone 5.6 uIU/mL (0.360-3.740)
[2021-05-02] MEDS: INSULIN -REGULAR HUMAN 50 UNIT/0.5 ML ML SQ SCH ×4 (07:30→21:00)
--- NOTE | 2021-05-02 07:57 | EKG ---
Test Date: 2021-05-01 Test Time: 16:49:15 Chief Sustainability Officer: MATIAS MEASUREMENT RESULTS: Intervals: Rate: 85 NC: QRSD: 74 QT: 384 QTc: 456 [place]: P: NC: QRS: -27 T: -48 INTERPRETIVE STATEMENTS: Accelerated Junctional rhythm Low voltage QRS Nonspecific T wave abnormality Abnormal ECG Compared to ECG 02/10/2020 01:33:23 Accelerated junctional rhythm now present Sinus rhythm no longer present T-wave abnormality still present Electronically Signed On 05-02-21 07:56:02 CDT by Guillaume Fallon
[2021-05-02] MEDS ORDERED: DIPHENHYDRAMINE 50 MG/ML VIAL IV ONE (08:30)
[2021-05-02] MEDS ORDERED: Levofloxacin 750mg IV 750 MG/150 ML BAG IV SCH (09:00)
[2021-05-02] MEDS ORDERED: CEFTRIAXONE 1 GM/NS 50 ML 1 GM/50 ML BAG IV SCH (09:00)
--- NOTE | 2021-05-02 09:54 | RAD REPORT ---
EXAM DESCRIPTION: CT - Pelvis Wo Cont - 05/02/2021 9:28 am CLINICAL HISTORY: eval left hip fracture COMPARISON: No comparisons TECHNIQUE: Axial noncontrast 2 millimeter thick images of the pelvis obtained. Sagittal and coronal reformatted images were generated and reviewed. All CT scans are performed using dose optimization technique as appropriate and may include automate d exposure control or mA/KV adjustment according to patient size. FINDINGS: Exam was protocol for optimal bone visualization. This limits soft tissue assessment somew hat. A large amount of ascites is present distending the abdomen. No free air or pneumatosis. No acut e bowel finding evident. Urinary bladder is contracted around a Davis catheter. Edema and contusion changes are present in the subcutaneous fatty tissues lateral to the left hip. He matoma seen in the musculature and adjacent fatty tissues medial to the proximal femur and inferior t o the left femoral neck. This is approximately 6 cm in size. Musculature lateral to the hip joint is edematous. Comminuted fracture involves the base of the left femoral neck and intertrochanteric region. Lesser t rochanter remains intact with the femur. Posterior aspect of the greater trochanter is seen as a free fracture fragment. Base of the femoral neck is impacted into the superior portion of the intertrocha nteric femur. Pathologic etiology is not suspected. Femoral neck-shaft angle is approximately 90 degr ees. No AVN or focal femoral head abnormality on the left. Impacted subcapital neck fracture noted in the right femur. No old imaging of the right hip is availa ble. This is probably old but can be correlated with history and pain symptoms. No AVN of the right f emoral head. Patient has an old fracture of the superior and inferior pubic rami at the pubic symphys is. Fracture of the left ischium is present suspected to be a mix of both old and new fracture. No ac etabular fracture is seen. Nondisplaced left sacral ala fractures suspected. Patient has partial comp ression of the superior endplate L4 without overall loss in body height. Age of this compression is u ncertain. IMPRESSION: Comminuted fracture of the left neck base and superior intertrochanteric region. Posteri or aspect of the greater trochanter is a free fracture fragment. Pathologic etiology is not identifia ble. Left sacral ala is suspected be fractured without displacement. There is a mixed acute and old fractu re of the left ischium. Impacted subcapital neck fracture of the right femur is present but believed to be old. There is no h istory of acute symptoms. Partial compression superior endplate L4 is present with overall body height preserved. Age is uncert ain. Large volume of ascites only partially assessed.
--- NOTE | 2021-05-02 11:02 | RAD REPORT ---
EXAM DESCRIPTION: US - Paracentesis Proc Guidance - 05/02/2021 10:13 am CLINICAL HISTORY: Ascites, pending hip fracture repair COMPARISON: None. TECHNIQUE: The patient presents for ultrasound-guided paracentesis. The procedure, risks and altern atives were discussed with the patient in detail. Oral and written consent were obtained. Time out p rocedure was performed. The patient had no contraindicated allergy or medication history. PT, INR va lues within acceptable limits. Preliminary sonographic evaluation identified left lower quadrant access site. The skin and deeper t issues were anesthetized with 1 percent lidocaine. Under direct sonographic visualization, a paracen tesis catheter was advanced into the peritoneal cavity. Approximately 17 mL of ascites was retained f or laboratory studies. Large volume drainage was initiated. Approximately 5 liters of ascites removed . At the conclusion of the procedure, catheter was withdrawn and a bandage placed at the puncture site. Postprocedure care and precaution instructions were given to the patient. Patient was transferred back to the floor for continued care. IMPRESSION: Ultrasound-guided paracentesis was performed with 5 liters of ascites removed. Approximately 17 mL of ascites retained and sent to the laboratory for pending studies.
[2021-05-02] MEDS ORDERED: NA CHLORIDE 0.9% 250 ML ONE (12:35)
--- NOTE | 2021-05-02 14:58 | P.PN ---
Subjective Date of Service: 05/02/21 Chief Complaint: hip fracture Patient complaining of pain in the left hip. Hemoglobin dropped to 7.5. Physical Examination - Vital Signs Temperature: 100.2 F Blood Pressure: 90/50 Pulse: 89 Respirations: 15 Pulse Ox (%): 99 - Physical Exam General: Alert, Oriented x3, Other (Mild distress due to pain) HEENT: Mucous membr. moist/pink Neck: JVD not distended Respiratory: Clear to auscultation bilaterally, Normal air movement Cardiovascular: No edema, Regular rate/rhythm, Normal S1 S2 Gastrointestinal: Soft and benign, No tenderness, Distended Musculoskeletal: No erythema Integumentary: No rashes Neurological: Normal strength at 5/5 x4 extr - Studies Laboratory Data (last 24 hrs) 05/01/21 17:25: APTT 29.4 05/01/21 17:25: PT 14.9 H, INR 1.29 05/01/21 17:25: WBC 5.40, Hgb 8.4 L, Hct 27.8 L, Plt Count 178 05/01/21 16:14: Sodium 133 L, Potassium 4.5, BUN 20 H, Creatinine 0.71, Glucose 172 H, Magnesium 1.8, Total Bilirubin 0.7, AST 35, ALT 22, Alkaline Phosphatase 117 Assessment And Plan - Current Problems (Diagnosis) (1) Ascites Current Visit: Yes Status: Acute (2) Hip fracture Current Visit: Yes Status: Acute Qualifiers: Encounter type: initial encounter Fracture type: closed Laterality: left Qualified Code(s): S72.002A - Fracture of unspecified part of neck of left femur, initial encounter for closed fracture (3) UTI (urinary tract infection) Current Visit: No Status: Acute Qualifiers: Urinary tract infection type: site unspecified Hematuria presence: without hematuria Qualified Code(s): N39.0 - Urinary tract infection, site not specified (4) Cirrhosis of liver Current Visit: No Status: Chronic Qualifiers: Hepatic cirrhosis type: unspecified hepatic cirrhosis Ascites presence: with ascites Qualified Code(s): K74.60 - Unspecified cirrhosis of liver; R18.8 - Other ascites (5) Anemia Current Visit: Yes Status: Chronic Qualifiers: Anemia type: unspecified type Qualified Code(s): D64.9 - Anemia, unspecified (6) Thrombocytopenia Current Visit: No Status: Acute - Plan Case discussed with ortho-Dr. Bauman who stated they having trouble getting the equipment for her hip repair. Patient tentatively scheduled for tomorrow. U.S. guided paracentesis today. Continue antibiotics for UTI. Low MCV suggesting iron deficiency. Check iron level. Transfuse 1 unit PRBC. Monitor H&H Blood pressure is borderline low and likely related to liver cirrhosis. Continue antibiotics. [place] and fentanyl prn for pain.
[2021-05-02] MEDS: HYDROCODONE/APAP 5/325 MG TAB PO PRN ×2 (15:25→23:41)
[2021-05-02] MEDS ORDERED: Meropenem 500 MG/100 ML BAG IV SCH (16:00)
[2021-05-02] MEDS: AZTREONAM 2 GM in NA CHLORIDE 0.9% 100 ML IV SCH (16:30)
[2021-05-02] MEDS: METRONIDAZOLE 500mg IVPB 500 MG/100 ML BAG IV SCH (16:42)
[2021-05-02] MEDS: ALBUMIN HUMAN 25% 200 ML IV SCH ×2 (16:43→21:47)
[2021-05-02] MEDS ORDERED: MAGNESIUM SULFATE 1 gm IVPB 1 GM/100 ML BAG IV ONE (20:00)
[2021-05-02 20:01] LABS: Hematocrit 24.1 % (36.0-45.0)
--- NOTE | 2021-05-02 20:35 | CON ---
Reason For Consultation: Cirrhosis. 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 She does follow Hepatology, Kasey Foster in [facility] s per the patient. A few days ago, she did have 6 L of ascitic fluid removed from her abdomen. She came to our hospital because of a fall and found to have fracture of the femoral neck. GI was consul attila for her cirrhosis. Dr. Bauman has been consulted for the hip fracture. When I saw the patient, vilma nelson did complain of severe pain at the site of the fracture. I was informed that they did try to trans candice her from the ER, but due to the current bed situation and worsening COVID status, there was no be d available overnight. Home Medications: As in the chart. Past Medical History: As above. Past Surgical History: Hysterectomy, cholecystectomy, tonsillectomy. Social History: Ex-smoker. Denies any current toxic habits. Review of Systems: GI: She does report frequent bowel movements, abdominal pain, ascites currently, but however, her ma in concern is the hip pain. Physical Examination: HEENT: Head atraumatic, normocephalic. Pupils equally reactive. Neck: Supple. Chest: Bilateral air entry. Abdomen: Mild ascites present. Nontender. Bowel sounds are present. Extremities: Fail extremities, evidence of bruising on the arms and legs. MARKETING CONTENT COORDINATOR: She is alert, oriented x3. CVS: S1, S2 plus. Vital Signs: Reviewed. She seems to have a low temperature of 100.2, blood pressure 90/50, respirat ory rate 15, pulse of 89. Laboratory Data: Imaging also reviewed. The patient already had a paracentesis done today, 5 L of a scites was removed. CT revealed again evidence of fracture, cirrhosis with ascites. Impression: A 75-year-old woman with multiple medical problems, decompensated cirrhosis, Child-Pham score appears to be 9 because of ascites, low albumin, bilirubin not being elevated and she appears t o be completely alert and oriented. MELD score is 9 as well. Given she is 75 years old, given this current situation, she is high risk of roldan and postoperative morbidity and mortality. Studies have shown would be 30% or higher. Therefore, I would recommend the best case scenario for the patient we lfare would be to be transferred to a liver center for the surgery. Plan: Continue current management. I have spoken to Dr. Hoffmann and reached out to Dr. Hoffmann about this and I have reached out to Dr. Bauman to discuss this case with him. I do understand the bed situa tion, but I have to give this recommendation based on clinical judgment and that is at this time for her to be transferred. If no bed is available or transfer not possible at all and the surgery has to be undertaken here as stated above, the patient's risk factor would be that of as stated above. I w ill start her on albumin 50 g every 12 hours as well as broad-spectrum antibiotics to cover for infec tion. During surgery, they would need to minimize risk of bleeding. Monitor her postoperatively car efully as well. Recall GI if needed. US/MODL Voice ID: [id number] Report ID: [id number]
[2021-05-03] MEDS ORDERED: NA CHLORIDE 0.9% 250 ML ONE (00:02)
[2021-05-03] MEDS: METRONIDAZOLE 500mg IVPB 500 MG/100 ML BAG IV SCH ×3 (01:48→16:44)
[2021-05-03] MEDS: AZTREONAM 2 GM in NA CHLORIDE 0.9% 100 ML IV SCH ×3 (01:49→16:43)
[2021-05-03 05:55] LABS: Absolute Lymphocytes (CBC) 0.3 K/uL (0.7-4.9); Basophils % 0.4 % (0-1.3); Hematocrit 25.6 % (36.0-45.0); Lymphocytes % 9.1 % (15.3-44.8); MPV 8.4 fL (7.6-11.3); RBC Red Blood Cell Count 3.53 M/uL (3.86-4.86)
[2021-05-03 06:07] LABS: BUN Blood Urea Nitrogen 17 mg/dL (7-18); Bicarbonate 23 mmol/L (21-32); Glucose Level 182 mg/dL (74-106); Magnesium 1.7 mg/dL (1.8-2.4); Potassium 3.7 mmol/L (3.5-5.1); Sodium Level 130 mmol/L (136-145)
[2021-05-03] MEDS: INSULIN -REGULAR HUMAN 50 UNIT/0.5 ML ML SQ SCH ×4 (07:30→21:00)
[2021-05-03] MEDS: HYDROCODONE/APAP 5/325 MG TAB PO PRN ×2 (08:41→13:55)
[2021-05-03 10:07] LABS: Anisocytosis 1+; Blood Morphology Comment NOTED (NOT SEEN); Platelet Estimate DECR; White Blood Cell Scan OK (OK)
[2021-05-03] MEDS: ALBUMIN HUMAN 25% 200 ML IV SCH ×2 (10:30→21:00)
--- NOTE | 2021-05-03 13:03 | EKG ---
Test Date: 2021-05-01 Test Time: 16:50:17 Floor Grinder: MATIAS MEASUREMENT RESULTS: Intervals: Rate: 85 MD: QRSD: 80 QT: 384 QTc: 456 [place]: P: MD: QRS: -19 T: -41 INTERPRETIVE STATEMENTS: Accelerated Junctional rhythm Low voltage QRS Nonspecific T wave abnormality Abnormal ECG Compared to ECG 05/01/2021 16:49:15 No significant changes Electronically Signed On 05-03-21 12:59:33 CDT by Guillaume Fallon
--- NOTE | 2021-05-03 13:42 | P.PN ---
Subjective Date of Service: 05/03/21 Chief Complaint: hip fracture About 5 L ascitic fluid tapped yesterday Status post 1 unit PRBC. Hemoglobin up to 8.3. Physical Examination - Vital Signs Temperature: 98 F Blood Pressure: 98/59 Pulse: 87 Respirations: 16 Pulse Ox (%): 96 - Physical Exam General: Alert, In no apparent distress HEENT: Mucous membr. moist/pink Neck: JVD not distended Respiratory: Clear to auscultation bilaterally, Normal air movement Cardiovascular: No edema, Regular rate/rhythm, Normal S1 S2 Gastrointestinal: Soft and benign, Non-distended, Distended (Mildly distended) Musculoskeletal: No swelling Integumentary: No rashes Neurological: Other (No focal motor deficit.) - Studies Microbiology Data (last 24 hrs): 05/01/21 17:25 Clean Catch Urine [place] Count - Final >100,000 CFU/ML. 05/01/21 17:25 Clean Catch Urine - Final Klebsiella Pneumoniae Assessment And Plan - Current Problems (Diagnosis) (1) Ascites Current Visit: Yes Status: Acute (2) Hip fracture Current Visit: Yes Status: Acute Qualifiers: Encounter type: initial encounter Fracture type: closed Laterality: left Qualified Code(s): S72.002A - Fracture of unspecified part of neck of left femur, initial encounter for closed fracture (3) UTI (urinary tract infection) Current Visit: No Status: Acute Qualifiers: Urinary tract infection type: site unspecified Hematuria presence: without hematuria Qualified Code(s): N39.0 - Urinary tract infection, site not specified (4) Cirrhosis of liver Current Visit: No Status: Chronic Qualifiers: Hepatic cirrhosis type: unspecified hepatic cirrhosis Ascites presence: with ascites Qualified Code(s): K74.60 - Unspecified cirrhosis of liver; R18.8 - Other ascites (5) Anemia Current Visit: Yes Status: Chronic Qualifiers: Anemia type: unspecified type Qualified Code(s): D64.9 - Anemia, unspecified (6) Thrombocytopenia Current Visit: No Status: Acute - Plan Case discussed with ortho-Dr. Bauman who stated they having trouble getting the equipment for her hip repair. GI also recommended transfer to a tertiary center with the medical staff physician given high mortality rate post of in her case. Patient medical staff physician is Dr. Ephraim Dill. Transfer initiated to [facility]. I am told Dr. Ephraim Weaver is looking to have her transferred to [facility]. Meanwhile GI recommend daily IV albumin and broad IV antibiotics coverage prior to surgery. U.S. guided paracentesis-about 5 L of fluid drained. Continue antibiotics for UTI. Low MCV suggesting iron deficiency. Check iron level. S/P 1 unit PRBC transfusion. Monitor H&H Blood pressure is borderline low and likely related to liver cirrhosis. [place] and fentanyl prn for pain.
--- NOTE | 2021-05-03 15:12 | CON ---
Date of Consultation: 05/02/2021 Reason For Consultation: Left hip fracture. History Of Present Illness: Ms. Quijano is a 75-year-old female with history of cirrhosis, diabetes, hypertension, anemia, and hyperlipidemia who presented to the ER on May 01 after a fall while try ing to sit on her toilet. She landed on her left side with subsequent pain and inability to bear young ght. Prior to the fall, the patient states that she was ambulatory with the use of a walker. She goodwin s history of cirrhosis and ascites that requires the paracentesis on a regular basis. She reports pa in to the left hip and history of pelvic fracture in the past. Review of Systems: As above, otherwise negative. Past Medical History: Includes cirrhosis, diabetes, hypertension, anemia, hyperlipidemia. Past Surgical History: Includes hysterectomy, cholecystectomy, tonsillectomy. Allergies: TO PENICILLIN. Home Medications: Include Lasix, propranolol, spironolactone, Levemir. Social History: Denies active tobacco use. Denies alcohol use. Denies drug use. Lives at home. Family History: Reviewed and noncontributory. Physical Examination: General: No apparent distress. HEENT: Normocephalic, atraumatic. Neck: Supple. Cardiovascular: Brisk cap refill to all digits. Chest: Nonlabored breathing. Abdomen: Some distention with ascites. Musculoskeletal: Bilateral upper extremities functional range of motion is without pain. No gross d eformities. No obvious dislocations. Right lower extremity functional range of motion is without pa in. No gross deformities. No obvious dislocations. No pain with internal or external rotation of t he right hip. Left lower extremity, tenderness to palpation of the left hip. No abrasions noted. P ain with range of motion of the left hip. Sensation grossly intact to the dorsal and plantar surface of the left foot. Moves her toes grossly as well as her ankle. X-rays: X-rays of the left hip as well as CAT scan demonstrate a comminuted intertrochanteric and ba sicervical left femur fracture. Assessment And Plan: Ms. Quijano is a 75-year-old female with cirrhosis, diabetes, hypertension, anem ia with a left intertrochanteric femur fracture. I did discuss the case at length with Dr. Zelaya as well as Dr. Hoffmann. The patient is a high risk surgical candidate given her multiple medical geovany rbidities and her left hip injury. Dr. Zelaya discussed morbidity and mortality risk of 30% given her liver disease. I discussed with the patient at length this as well as with her granddaughter and they expressed understanding. We will try to transfer the patient to a higher level care center for postoperative management given her significant liver disease and assess the patient. We are unable to transfer her secondary to these hospitals being full. We would proceed with surgical treatment of the left hip here on Saturday. We will continue to work on transfer at this time and the patient will be nonweightbearing on the left lower extremity. The patient and granddaughter expressed understand ing. CV/MODL Voice ID: [id number] Report ID: [id number]
[2021-05-03] MEDS: FENTANYL CITR 100 MCG/2 ML IV PRN (16:44)
--- NOTE | 2021-05-03 19:32 | P.DS ---
Admission Date: 05/01/21 Discharge Date: 05/03/21 Disposition: TRANSFER TO [facility] Discharge Condition: FAIR Reason for Admission: hip fracture - Problems (1) Ascites Current Visit: Yes Status: Acute (2) Hip fracture Current Visit: Yes Status: Acute Qualifiers: Encounter type: initial encounter Fracture type: closed Laterality: left Qualified Code(s): S72.002A - Fracture of unspecified part of neck of left femur, initial encounter for closed fracture (3) UTI (urinary tract infection) Current Visit: No Status: Acute Qualifiers: Urinary tract infection type: site unspecified Hematuria presence: without hematuria Qualified Code(s): N39.0 - Urinary tract infection, site not specified (4) Cirrhosis of liver Current Visit: No Status: Chronic Qualifiers: Hepatic cirrhosis type: unspecified hepatic cirrhosis Ascites presence: with ascites Qualified Code(s): K74.60 - Unspecified cirrhosis of liver; R18.8 - Other ascites (5) Anemia Current Visit: Yes Status: Chronic Qualifiers: Anemia type: unspecified type Qualified Code(s): D64.9 - Anemia, unspecified (6) Thrombocytopenia Current Visit: No Status: Acute Brief History of Present Illness: 75 yo F with cirrhosis, DM, HTN, anemia and HLD presented to the ED after a fall. She tried to sit down on the toilet and missed and fell to the ground. Sh Imaging done in the ED showed displaced left subcapital femoral neck fracture. She was on Lasix which was discontinued. She undergoes periodic paracenteses f or recurrent ascites. H/H 8.4, MCV 69.3, Na 133, BUN 20, GFR 80, Glu 168. Nitrite, WBC, and bacteria + in urine. Received 1L fluid bolus in ED. Patient hospitalized for further management. Hospital Course: Patient admitted to the medical floor started on IV antibiotics. Orthopedic consulted, patient was seen by Dr. Bauman who recommended ORIF. Patient was seen by GI Dr. Zelaya. Dr. Zelaya recommended transfer to a tertiary center under the care of her criminal analyst given her high mortality rate in the postop period. Patient given abdomen infusions and broad-spectrum antibiotics-IV Azactam and IV flagyl. U.S. guided paracentesis was done and about 5 L of staff ascitic fluid was drained. Patient accepted for transfer to [facility]. She is clinically stable for transfer. Vital Signs/Physical Exam: Temp Pulse Resp BP Pulse Ox 97.4 F 90 16 105/57 L 96 05/03/21 16:00 05/03/21 16:00 05/03/21 17:14 05/03/21 16:00 05/03/21 17:14 General: In no apparent distress Neck: JVD not distended Respiratory: Clear to auscultation bilaterally, Normal air movement Cardiovascular: No edema, Regular rate/rhythm, Normal S1 S2 Gastrointestinal: Soft and benign, No tenderness, Distended Musculoskeletal: No swelling Integumentary: No rashes Laboratory Data at Discharge: WBC 2.80 K/uL (4.3-10.9) L D 05/03/21 05:27 Hgb 8.3 g/dL (12.0-15.0) L 05/03/21 05:27 Hct 25.6 % (36.0-45.0) L 05/03/21 05:27 Plt Count 107 K/uL (152-406) L 05/03/21 05:27 PT 14.9 SECONDS (9.5-12.5) H 05/01/21 17:25 INR 1.29 05/01/21 17:25 APTT 29.4 SECONDS (24.3-36.9) 05/01/21 17:25 Sodium 130 mmol/L (136-145) L 05/03/21 05:27 Potassium 3.7 mmol/L (3.5-5.1) 05/03/21 05:27 BUN 17 mg/dL (7-18) 05/03/21 05:27 Creatinine 0.63 mg/dL (0.55-1.3) 05/03/21 05:27 Glucose 182 mg/dL (74-106) H 05/03/21 05:27 Phosphorus 2.8 mg/dL (2.5-4.9) 05/02/21 05:26 Magnesium 1.7 mg/dL (1.8-2.4) L 05/03/21 05:27 Total Bilirubin 1.0 mg/dL (0.2-1.0) 05/02/21 05:26 AST 29 U/L (15-37) 05/02/21 05:26 ALT 20 U/L (12-78) 05/02/21 05:26 Alkaline Phosphatase 100 U/L (45-117) 05/02/21 05:26 Triglycerides 83 mg/dL (<150) 05/02/21 05:26 Cholesterol 98 mg/dL (<200) 05/02/21 05:26 HDL Cholesterol 35 mg/dL (40-60) L 05/02/21 05:26 Cholesterol/HDL Ratio 2.80 05/02/21 05:26 Home Medications: Furosemide [Lasix*] 80 mg PO DAILY 04/04/14 Insulin Detemir [Levemir Flextouch] 30 unit SQ BEDTIME 05/13/19 Pantoprazole Granules [Protonix Granules*] 1 packet PO DAILY 05/02/21 Followup: [email or web address] [Primary Care Provider] - Time spent managing pt's care (in minutes): 40
[2021-05-03 20:45] VITALS: BP 110/59; TEMP 97.1
[2021-05-03 21:02] VITALS: O2SAT 98
== END 2021-05-03 22:02 | disposition short-term general hospital (02) | DRG 536 ==
LOC: ER 14:48 → ERHOLD 21:06 → 2ND 23:41
PROVIDERS: ADMIT Internal Medicine; ATTEND Internal Medicine
PROC: 0W9G3ZZ Drainage of Peritoneal Cavity, Percutaneous Approach (ICD-10-PCS; principal; 2021-05-02)
PROC: 30233N1 Transfusion of Nonautologous Red Blood Cells into Peripheral Vein, Percutaneous Approach (ICD-10-PCS; 2021-05-02)
DX: S72.142A Displaced intertrochanteric fracture of left femur, initial encounter for closed fracture (principal); R64 Cachexia; R18.8 Other ascites; N39.0 Urinary tract infection, site not specified; W01.0XXA Fall on same level from slipping, tripping and stumbling without subsequent striking against object, initial encounter; Y92.002 Bathroom of unspecified non-institutional (private) residence as the place of occurrence of the external cause; E11.9 Type 2 diabetes mellitus without complications; I10 Essential (primary) hypertension; Z68.21 Body mass index [BMI] 21.0-21.9, adult; D64.9 Anemia, unspecified; K74.60 Unspecified cirrhosis of liver; E78.5 Hyperlipidemia, unspecified; D69.6 Thrombocytopenia, unspecified; Z88.0 Allergy status to penicillin; B96.1 Klebsiella pneumoniae [K. pneumoniae] as the cause of diseases classified elsewhere; Z20.822 Contact with and (suspected) exposure to COVID-19
CPT/HCPCS: 36415; 49083; 71045; 72170; 72192; 80048; 80053; 80061; 80076; 81003; 81015; 82728; 82947; 83540; 83735; 83880; 84100; 84439; 84443; 84466; 84484; 85014; 85018; 85025; 85610; 85730; 86850; 86900; 86901; 87040; 87077; 87086; 87088; 87186; 93005; 94760; 99285; J2405; J3010; J3475; J7050; P9016; P9047; U0003